=== PATIENT | female | born 1945 | race Caucasian/White ===

== ENCOUNTER → 2017-03-25 | Outpatient (CLI) | payer MEDICARE, SELFPAY ==
[2017-03-25 14:35] LABS: Absolute Lymphocyte Count 2.47 X10^3/ul (0.83-4.51); Absolute Neutrophil Count 4.2 X10^3/uL (2.0-7.7); Basophil# 0.05 X10^3/uL; Basophil% 0.7 % (0-1); Eosinophil# 0.27 X10^3/uL; Eosinophils% 3.5 % (0-5); Hematocrit 42.5 % (37-47); Hemoglobin 13.8 g/dl (12.0-15.0); Lymphocyte # 2.47 X10^3/ul (4.0); Lymphocyte % 32.2 % (19-41); Mean Corp Hgb Conc 32.5 g/gl (32-36); Mean Corpuscular Hgb 30.5 pg (27.0-32.0); Mean Platelet Vol. 10.3 fl (6.2-12.0); Monocyte# 0.65 X10^3/uL; Monocyte% 8.5 % (0-10); Neutrophil # 4.21 X10^3/uL (2.7-7.7); Neutrophil % 54.8 % (47-70); Platelet Count 413 K/mm3 (150-450); RBC Distribution Width CV 15.8 % (11.6-14.6); RBC Distribution Width SD 51.9 fl (35.1-43.9); Red Blood Count 4.52 M/mm3 (4.2-5.4); White Blood Count 7.7 K/mm3 (4.4-11.0)
[2017-03-25 14:39] LABS: POSITIVE COUNT NO; POSITIVE DIFFERENTIAL NO; POSITIVE MORPHOLOGY NO
[2017-03-25 14:54] LABS: AST(SGOT) 21 U/L (15-37); Alanine Aminotransfer ALT/SGPT 26 U/L (12-78); Albumin, Serum 3.9 g/dL (3.4-5.0); Alkaline Phosphatase 79 U/L (45-117); Anion Gap 7 (5-15); BUN 15 mg/dL (7-18); BUN/Creat Ratio 17.8 RATIO (10-20); Calcium,Total 9.3 mg/dL (8.5-10.1); Chloride 102 mmol/L (98-107); Creatinine, Serum 0.84 mg/dL (0.55-1.02); EST Glomerular Filtration Rate 71 mL/min (>60); Est Glom Filt Rate - Afr Amer 86 mL/min (>60); Globulin 4.1 g/dL (2.2-4.2); Glucose 89 mg/dL (70-110); Sodium Level 138 mmol/L (136-145)
== END | disposition home or self-care (01) ==
LOC: MTLAB 11:43
PROVIDERS: Family Provider Family Medicine; PCP Family Medicine; Visit Provider Internal Medicine Rheumatology
DX: R69 Illness, unspecified (principal)
CPT/HCPCS: 36415; 80053; 85025

== ENCOUNTER → 2017-06-18 14:15 | Outpatient (CLI) | payer MEDICARE, SELFPAY ==
[2017-06-18 15:36] LABS: Absolute Neutrophil Count 4.8 X10^3/uL (2.0-7.7); Basophil# 0.04 X10^3/uL; Basophil% 0.5 % (0-1); Eosinophils% 4.6 % (0-5); Hematocrit 41.9 % (37-47); Hemoglobin 13.5 g/dl (12.0-15.0); Lymphocyte % 34.7 % (19-41); Mean Corp Hgb Conc 32.2 g/gl (32-36); Mean Corpuscular Hgb 30.7 pg (27.0-32.0); Mean Corpuscular Volume 95.2 fL (81-99); Mean Platelet Vol. 10.1 fl (6.2-12.0); Monocyte# 0.41 X10^3/uL; Monocyte% 4.7 % (0-10); Neutrophil # 4.77 X10^3/uL (2.7-7.7); Neutrophil % 55.3 % (47-70); Platelet Count 354 K/mm3 (150-450); RBC Distribution Width CV 15.9 % (11.6-14.6); RBC Distribution Width SD 55.4 fl (35.1-43.9); White Blood Count 8.6 K/mm3 (4.4-11.0)
[2017-06-18 15:46] LABS: POSITIVE COUNT NO; POSITIVE DIFFERENTIAL NO; POSITIVE MORPHOLOGY NO
[2017-06-18 15:49] LABS: AST(SGOT) 22 U/L (15-37); Alanine Aminotransfer ALT/SGPT 31 U/L (13-56); Albumin, Serum 3.8 g/dL (3.2-5.0); Alkaline Phosphatase 83 U/L (45-117); Anion Gap 6 (5-15); BUN 17 mg/dL (7-18); BUN/Creat Ratio 21.4 RATIO (10-20); Calcium,Total 9.1 mg/dL (8.5-10.1); Chloride 105 mmol/L (98-107); EST Glomerular Filtration Rate 76 mL/min (>60); Est Glom Filt Rate - Afr Amer 92 mL/min (>60); Globulin 3.9 g/dL (2.2-4.2); Glucose 90 mg/dL (74-106); Potassium 3.7 mmol/L (3.5-5.1); Protein, Total 7.7 g/dL (6.4-8.2); Sodium Level 142 mmol/L (136-145)
== END ==
PROVIDERS: Family Provider Family Medicine; PCP Family Medicine; Visit Provider Internal Medicine Rheumatology
DX: L40.59 Other psoriatic arthropathy (principal); M17.0 Bilateral primary osteoarthritis of knee; M18.0 Bilateral primary osteoarthritis of first carpometacarpal joints; Z79.899 Other long term (current) drug therapy; Z87.11 Personal history of peptic ulcer disease
CPT/HCPCS: 36415; 80053; 85025

== ENCOUNTER → 2017-09-23 08:41 | Outpatient (CLI) | payer MEDICARE, SELFPAY ==
--- NOTE | 2017-09-23 08:41 | DT_ITS ---
This patient was seen during an EMR downtime September 16, 2017 - September 23, 2017. This patient may have a combination of paper and electronic documentation or all paper documentation. All documentation is viewable within the e-chart portion of [facility] for each patient visit.
[2017-09-23 10:35] LABS: Absolute Lymphocyte Count 2.37 X10^3/ul (0.83-4.51); Basophil# 0.04 X10^3/uL; Basophil% 0.6 % (0-1); Eosinophils% 2.8 % (0-5); Hemoglobin 13.5 g/dl (12.0-15.0); Lymphocyte # 2.37 X10^3/ul (4.0); Lymphocyte % 33.4 % (19-41); Mean Corp Hgb Conc 32.1 g/gl (32-36); Mean Corpuscular Hgb 30.5 pg (27.0-32.0); Mean Platelet Vol. 10.1 fl (6.2-12.0); Monocyte# 0.47 X10^3/uL; Monocyte% 6.6 % (0-10); Neutrophil % 56.5 % (47-70); POSITIVE COUNT NO; POSITIVE DIFFERENTIAL NO; POSITIVE MORPHOLOGY NO; Platelet Count 343 K/mm3 (150-450); RBC Distribution Width SD 50.2 fl (35.1-43.9); Red Blood Count 4.42 M/mm3 (4.2-5.4); White Blood Count 7.1 K/mm3 (4.4-11.0)
[2017-09-23 10:54] LABS: ALB/GLOB Ratio 0.9 RATIO (0.9-2.4); AST(SGOT) 20 U/L (15-37); Alanine Aminotransfer ALT/SGPT 27 U/L (13-56); Albumin, Serum 3.5 g/dL (3.2-5.0); Alkaline Phosphatase 79 U/L (45-117); Anion Gap 9 (5-15); BUN 13 mg/dL (7-18); BUN/Creat Ratio 14.8 RATIO (10-20); Calcium,Total 8.6 mg/dL (8.5-10.1); Chloride 107 mmol/L (98-107); Creatinine, Serum 0.88 mg/dL (0.55-1.02); EST Glomerular Filtration Rate 68 mL/min (>60); Est Glom Filt Rate - Afr Amer 82 mL/min (>60); Globulin 3.9 g/dL (2.2-4.2); Glucose 138 mg/dL (74-106); Potassium 3.9 mmol/L (3.5-5.1); Protein, Total 7.4 g/dL (6.4-8.2); Sodium Level 143 mmol/L (136-145)
== END ==
PROVIDERS: Family Provider Family Medicine; PCP Family Medicine; Visit Provider Internal Medicine Rheumatology
DX: L40.59 Other psoriatic arthropathy (principal); Z79.899 Other long term (current) drug therapy; L40.8 Other psoriasis; M17.0 Bilateral primary osteoarthritis of knee; M18.0 Bilateral primary osteoarthritis of first carpometacarpal joints; Z87.11 Personal history of peptic ulcer disease
CPT/HCPCS: 36415; 80053; 85025

== ENCOUNTER → 2017-12-10 10:37 | Outpatient (CLI) | payer MEDICARE, SELFPAY ==
[2017-12-10 12:11] LABS: Absolute Lymphocyte Count 2.63 X10^3/ul (0.83-4.51); Absolute Neutrophil Count 4.3 X10^3/uL (2.0-7.7); Basophil# 0.03 X10^3/uL; Basophil% 0.4 % (0-1); Eosinophil# 0.18 X10^3/uL; Eosinophils% 2.4 % (0-5); Hematocrit 42.4 % (37-47); Hemoglobin 13.4 g/dl (12.0-15.0); Lymphocyte # 2.63 X10^3/ul (4.0); Lymphocyte % 34.5 % (19-41); Mean Corp Hgb Conc 31.6 g/gl (32-36); Mean Corpuscular Volume 95.1 fL (81-99); Mean Platelet Vol. 10.1 fl (6.2-12.0); Monocyte# 0.52 X10^3/uL; Monocyte% 6.8 % (0-10); Neutrophil # 4.26 X10^3/uL (2.7-7.7); Neutrophil % 55.8 % (47-70); POSITIVE COUNT NO; POSITIVE DIFFERENTIAL NO; POSITIVE MORPHOLOGY NO; Platelet Count 340 K/mm3 (150-450); RBC Distribution Width CV 15.7 % (11.6-14.6); RBC Distribution Width SD 54.1 fl (35.1-43.9); Red Blood Count 4.46 M/mm3 (4.2-5.4); White Blood Count 7.6 K/mm3 (4.4-11.0)
[2017-12-10 12:27] LABS: ALB/GLOB Ratio 1.1 RATIO (0.9-2.4); AST(SGOT) 23 U/L (15-37); Alanine Aminotransfer ALT/SGPT 33 U/L (13-56); Albumin, Serum 4.1 g/dL (3.2-5.0); Alkaline Phosphatase 89 U/L (45-117); Anion Gap 9 (5-15); BUN 16 mg/dL (7-18); BUN/Creat Ratio 18.6 RATIO (10-20); Chloride 109 mmol/L (98-107); Creatinine, Serum 0.86 mg/dL (0.55-1.02); EST Glomerular Filtration Rate 69 mL/min (>60); Est Glom Filt Rate - Afr Amer 84 mL/min (>60); Globulin 3.7 g/dL (2.2-4.2); Glucose 86 mg/dL (74-106); Potassium 4.1 mmol/L (3.5-5.1); Protein, Total 7.8 g/dL (6.4-8.2); Sodium Level 141 mmol/L (136-145)
== END ==
PROVIDERS: Family Provider Family Medicine; PCP Family Medicine; Visit Provider Internal Medicine Rheumatology
DX: L40.59 Other psoriatic arthropathy (principal); M17.0 Bilateral primary osteoarthritis of knee; M18.0 Bilateral primary osteoarthritis of first carpometacarpal joints; Z87.11 Personal history of peptic ulcer disease; Z79.899 Other long term (current) drug therapy
CPT/HCPCS: 36415; 80053; 85025

== ENCOUNTER → 2017-12-12 09:00 | Outpatient (CLI) | payer MEDICARE, SELFPAY | PROVIDERS: Family Provider Family Medicine; PCP Family Medicine; Visit Provider Surgery | DX: N64.53 Retraction of nipple (principal); N63.20 Unspecified lump in the left breast, unspecified quadrant; R92.8 Other abnormal and inconclusive findings on diagnostic imaging of breast; Z80.3 Family history of malignant neoplasm of breast | CPT/HCPCS: 76642; 77062; 77063; 77066; G0279 ==

== ENCOUNTER → 2018-04-07 08:45 | Outpatient (CLI) | payer MEDICARE, SELFPAY ==
[2018-04-07 09:43] LABS: Vitamin D,25 Hydroxy 34.8 ng/mL (29.95-100.01)
== END ==
PROVIDERS: Family Provider Family Medicine; PCP Family Medicine; Referring Provider Podiatrist; Visit Provider Podiatrist
DX: E55.9 Vitamin D deficiency, unspecified (principal); S92.354A Nondisplaced fracture of fifth metatarsal bone, right foot, initial encounter for closed fracture; X58.XXXA Exposure to other specified factors, initial encounter; Y93.9 Activity, unspecified; Y92.9 Unspecified place or not applicable; Y99.9 Unspecified external cause status
CPT/HCPCS: 36415; 82306

== ENCOUNTER → 2018-05-01 10:59 | Outpatient (CLI) | payer MEDICARE, SELFPAY ==
[2018-05-01 12:20] LABS: Absolute Lymphocyte Count 2.28 X10^3/ul (0.83-4.51); Absolute Neutrophil Count 2.9 X10^3/uL (2.0-7.7); Basophil# 0.05 X10^3/uL; Basophil% 0.8 % (0-1); Eosinophil# 0.31 X10^3/uL; Eosinophils% 5.1 % (0-5); Hematocrit 44.4 % (37-47); Lymphocyte # 2.28 X10^3/ul (4.0); Lymphocyte % 37.4 % (19-41); Mean Corp Hgb Conc 31.5 g/gl (32-36); Mean Corpuscular Hgb 30.2 pg (27.0-32.0); Mean Corpuscular Volume 95.7 fL (81-99); Mean Platelet Vol. 10.5 fl (6.2-12.0); Monocyte# 0.51 X10^3/uL; Monocyte% 8.4 % (0-10); Neutrophil # 2.93 X10^3/uL (2.7-7.7); Platelet Count 320 K/mm3 (150-450); RBC Distribution Width CV 15.6 % (11.6-14.6); RBC Distribution Width SD 52.8 fl (35.1-43.9); Red Blood Count 4.64 M/mm3 (4.2-5.4); White Blood Count 6.1 K/mm3 (4.4-11.0)
[2018-05-01 12:25] LABS: POSITIVE COUNT NO; POSITIVE DIFFERENTIAL NO; POSITIVE MORPHOLOGY NO
[2018-05-01 12:53] LABS: ALB/GLOB Ratio 1.1 RATIO (0.9-2.4); AST(SGOT) 23 U/L (15-37); Alanine Aminotransfer ALT/SGPT 25 U/L (13-56); Albumin, Serum 3.8 g/dL (3.2-5.0); Alkaline Phosphatase 81 U/L (45-117); Anion Gap 6 (5-15); BUN 13 mg/dL (7-18); BUN/Creat Ratio 18.4 RATIO (10-20); Calcium,Total 8.6 mg/dL (8.5-10.1); Chloride 108 mmol/L (98-107); Creatinine, Serum 0.71 mg/dL (0.55-1.02); EST Glomerular Filtration Rate 87 mL/min (>60); Est Glom Filt Rate - Afr Amer 105 mL/min (>60); Globulin 3.5 g/dL (2.2-4.2); Glucose 79 mg/dL (74-106); Potassium 4.1 mmol/L (3.5-5.1); Protein, Total 7.3 g/dL (6.4-8.2); Sodium Level 139 mmol/L (136-145)
--- OUTSIDE RECORDS SUMMARY | 2018-07-06 02:08 | XMS RPT_ITS ---
:1945 Author Organization OHIP Support Name Relationship Address Phone SCOTT ZAYAS Unavailable [address] + [place] [address] R Unavailable Unavailable Unavailable KALLI, SHAQUILLE Unavailable [address] + [place] [address] SCOTT ZAYAS Unavailable [address] + [place] [address] R Unavailable Unavailable Unavailable KALLI, SHAQUILLE Unavailable [address] + [place] [address] SCOTT ZAYAS Unavailable [address] + [place] [address] R Unavailable Unavailable Unavailable KALLI, SHAQUILLE Unavailable [address] + [place] [address] SCOTT ZAYAS Unavailable [address] + [place] [address] R Unavailable Unavailable Unavailable KALLI, SHAQUILLE Unavailable [address] + [place] [address] SCOTT ZAYAS Unavailable [address] + [place] [address] R Unavailable Unavailable Unavailable KALLI, SHAQUILLE Unavailable [address] + [place] [address] SCOTT ZAYAS Unavailable [address] + [place] [address] R Unavailable Unavailable Unavailable KALLI, SHAQUILLE Unavailable [address] + [place] [address] SCOTT ZAYAS Unavailable [address] + [place] [address] R Unavailable Unavailable Unavailable KALLI, SHAQUILLE Unavailable [address] [phone] [place] [address] Care Team Providers Name Role Phone Amelia Sarabia Attending Unavailable Fascione, Amelia Referring Unavailable Cebul III, Joseph Primary Care Unavailable Vellanki, Eveline Attending Unavailable Vellanki, Eveline Referring Unavailable Cebul III, Joseph Primary Care Unavailable Vellanki, Eveline Attending Unavailable Cebul III, Joseph Primary Care Unavailable Cebul III, Joseph Referring Unavailable Vellanki, Eveline Attending Unavailable Vellanki, Eveline Referring Unavailable Cebul III, Joseph Primary Care Unavailable Vellanki, Eveline Attending Unavailable Vellanki, Eveline Referring Unavailable Cebul III, Joseph Primary Care Unavailable Cebul, Micha Attending Unavailable Cebul III, Joseph Referring Unavailable Cebul III, Joseph Primary Care Unavailable Cebul, Micha Attending Unavailable Cebul III, Joseph Primary Care Unavailable CEBUL III, JOSEPH A Attending Unavailable CEBUL III, JOSEPH A Referring Unavailable CEBUL III, JOSEPH A Referring Unavailable CEBUL III, JOSEPH A Attending Unavailable PAGE BRAGA (TERRAZZO ROLLER) Referring Unavailable PROBLEMS PROBLEMS DATE TYPE CONDITION / CODE ATTENDING STATUS SOURCE 04/07/2018 Unknown S92.354A - Fascione, Active [place] Nondisplaced fracture [facility] fifth [facility] bone, right foot, Repository initial encounter for closed fracture / S92.354A(ICD-10) 12/10/2017 Unknown N64.53 - Retraction Micha Thacker Active [facility] of nipple / Community N64.53(ICD-10) Hospital Repository 10/10/2017 Unknown L40.59 - Other Vellanki, Eveline 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 arthropathy Community / L40.59(ICD-10) Hospital Repository 06/18/2017 Unknown Z79.899 - Other long Vellanki, Eveline Active [facility] term (current) drug Community therapy / Hospital Z79.899(ICD-10) Repository 06/18/2017 Unknown L40.8 - Other Vellanki, Eveline Active [place] psoriasis / Community L40.8(ICD-10) Hospital Repository 06/18/2017 Unknown M17.0 - Bilateral Vellanki, Eveline Active [place] primary [facility] osteoarthritis of Hospital knee / M17.0(ICD-10) Repository 06/18/2017 Unknown M18.0 - Bilateral Vellanki, Eveline Active [facility] primary [facility] osteoarthritis of Hospital first carpometacarpal Repository joints / M18.0(ICD-10) 06/18/2017 Unknown Z87.11 - Personal Eveline Londono Active [facility] history of peptic Community ulcer disease / Hospital Z87.11(ICD-10) Repository 06/05/2017 Active Other specified NA Active [facility] Main density and [place] structure, Repository unspecified site / M85.80(ICD-10) 06/05/2017 Active Nondisplaced NA Active [facility] transverse fracture [facility] Main of left patella, [place] sequela / Repository S82.035S(ICD-10) 06/05/2017 Active Age-related NA Active [facility] osteoporosis with Clinic Main current pathological [place] fracture, unspecified Repository site, sequela / M80.00XS(ICD-10) 05/20/2017 Active Unknown / CEBUL III, Active [facility] UNK(Unknown) JOSEPH A Clinic Main [place] Repository PROCEDURES PROCEDURES No Procedure Records FoundRESULTS RESULTS CBC W/DIFF, AUTOMATED Collected: 05/01/2018 Status: F Source: [place] 11:05 AM [facility] REPOSITORY TYPE CODE TESTS RESULT OUT OF RANGE REFERENCE UNITS LAB L100.1000 4.4-11.0 K/mm3 Normal WBC 6.1 LAB L100.1200 4.2-5.4 M/mm3 Normal RBC 4.64 LAB L100.1300 12.0-15.0 g/dl Normal HGB 14.0 LAB L100.1400 37-47 % Normal HCT 44.4 LAB L100.1500 81-99 fL Normal MCV 95.7 LAB L100.1600 27.0-32.0 pg Normal MCH 30.2 LAB L100.1700 32-36 g/gl Low MCHC 31.5 LAB L100.1810 11.6-14.6 % High RDW CV 15.6 LAB L100.1820 35.1-43.9 fl High RDW SD 52.8 LAB L100.1900 150-450 K/mm3 Normal PLT 320 LAB L100.2000 6.2-12.0 fl Normal MPV 10.5 LAB L100.2100 47-70 % Normal NEUT% 48.0 LAB L100.2200 19-41 % Normal LY% 37.4 LAB L100.2300 0-10 % Normal MONO% 8.4 LAB L100.2400 0-5 % High EO% 5.1 LAB L100.2500 0-1 % Normal BASO% 0.8 LAB L100.2550 0.0-0.9 % Normal IM GRAN % 0.300 Result Comment: IG% - Immature Granulocytes (promyelocytes, myelocytes and metamyelocytes) > 1% indicates that a LEFT SHIFT is Present. LAB L100.2620 2.0-7.7 X10 3/uL Normal Absolute Neut 2.9 LAB L100.2720 0.83-4.51 X10 3/ul Normal Absolute Lymph 2.28 Performed By: #### L100.0100 #### [facility] [address] [place], [address] COMPREHENSIVE METABOLIC Collected: 05/01/2018 Status: F Source: [facility] 11:05 AM [facility] REPOSITORY TYPE CODE TESTS RESULT OUT OF RANGE REFERENCE UNITS LAB L501.0100 74-106 mg/dL Normal GLU 79 Result Comment: Please note revised GLUCOSE reference range effective 2017. LAB L501.1000 7-18 mg/dL Normal BUN 13 LAB L501.1100 0.55-1.02 mg/dL Normal CREAT,SERUM 0.71 Result Comment: The validity of the calculated GFR AND GFRAA in patients over 70 years has not been determined. Clinical correlation is essential. LAB L501.1110 >60 mL/min Normal EST GFR 87 Result Comment: Non- GFR Calc LAB L501.1115 >60 mL/min Normal EST GFR - AA 105 Result Comment: GFR Calc LAB L501.1300 10-20 RATIO Normal BUN/CRE 18.4 LAB L501.1500 6.4-8.2 g/dL T Normal PROT 7.3 LAB L501.1800 3.2-5.0 g/dL Normal ALB 3.8 LAB L501.1950 2.2-4.2 g/dL Normal GLOB 3.5 LAB L501.2000 0.9-2.4 RATIO Normal A/G 1.1 LAB L501.2200 8.5-10.1 mg/dL CA Normal 8.6 LAB L501.4100 15-37 U/L Normal AST 23 LAB L501.4305 45-117 U/L Normal ALK P 81 LAB L501.4405 13-56 U/L Normal ALT 25 LAB L501.4600 0.20-1.00 mg/dL T Normal BILI 0.40 LAB L501.5300 136-145 mmol/L NA Normal 139 LAB L501.5600 3.5-5.1 mmol/L K Normal 4.1 LAB L501.5900 98-107 mmol/L High CL 108 LAB L501.6100 21.0-32.0 mmol/L Normal CO2 25.0 LAB L501.6200 5-15 Normal GAP 6 Performed By: #### L500.4050 #### [facility] [address] [place], [address] PROGRESS Observed: 04/23/2018 Status: COMPLETED Source: [place] 3:24 PM [facility] REPOSITORY HNO ID: [id number] Author: Lisa Ackerman (Elisha) Howard Service: (none) Author Type: Nurse Practitioner Type: Progress Notes Filed: 04/23/2018 3:35 PM Note Text: Subjective HPI Patient presents with: diarrhea, stomach cramps,x 2-3 days Nasal congestion x 1 month rash on stomach: x 1 month-rash started last night on one side and woke her up, states has had rash before used otc cream and it improved. Also with complaints of low back pain after tripping over a chair 2 weeks ago. Denies any otc treatment for symptoms. Review of Systems Constitutional: Negative for chills, fever and malaise/fatigue. HENT: Positive for congestion and sinus pain. Negative for ear pain and sore throat. Eyes: Negative for discharge and redness. Respiratory: Negative for cough. Gastrointestinal: Positive for abdominal pain (cramps intermittently), diarrhea (resolving) and nausea. Negative for vomiting. Musculoskeletal: Positive for back pain. Skin: Positive for rash. Neurological: Negative for headaches. All other systems reviewed and are negative. 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 Omeprazole 40 mg capsule TAKE 1 CAPSULE DAILY ketoconazole (NIZORAL) 2 % shampoo Apply 1 application to affected area once daily as needed. CALCIUM CARBONATE/VITAMIN D2 (CALCIUM + VITAMIN D ORAL) Take by mouth twice daily. gabapentin (NEURONTIN) 100 mg capsule Take 100 mg by mouth three times daily. fluorometholone (FML LIQUID FILM) 0.1 % ophthalmic suspension Use 1 Drop in both eyes twice daily. B Complex Vitamins capsule Take 1 capsule by mouth once daily. Methotrexate Sodium 2.5 mg tablet 8 tablets once a week. folic acid 1 mg tablet Take two tablets by mouth once daily HYDROcodone-acetaminophen (NORCO) 5-325 mg per tablet 1 tablet by mouth per day as needed for severe pain. Use sparingly.Earliest Fill Date: 04/21/18 nystatin (NYSTOP) powder Apply 1 application to affected area twice daily for 14 days. triamcinolone acetonide (KENALOG) 0.1 % cream Apply 1 application to affected area three times daily for 10 days. Apply sparingly to area for rash/itching. doxycycline monohydrate (MONODOX) 100 mg capsule Take 1 capsule by mouth twice daily for 10 days. cyclobenzaprine (FLEXERIL) 10 mg tablet Take 1 tablet by mouth three times daily as needed for up to 7 days. FAMILY HISTORY Problem Relation Age of Onset - Stroke Mother pneumonia - other (accident [Other]) Father - Breast Cancer Sister 1/2 sister - Coronary Artery Disease Brother Social History Substance Use Topics - Smoking status: Never Smoker - Smokeless tobacco: Never Used - Alcohol use No Objective Physical Exam Constitutional: She is well-developed, well-nourished, and in no distress. HENT: Head: Normocephalic. Right Ear: Tympanic membrane, external ear and ear canal normal. Left Ear: Tympanic membrane, external ear and ear canal normal. Nose: Mucosal edema present. Right sinus exhibits maxillary sinus tenderness. Right sinus exhibits no frontal sinus tenderness. Left sinus exhibits maxillary sinus tenderness. Left sinus exhibits no frontal sinus tenderness. Mouth/Throat: Oropharynx is clear and moist. Eyes: Conjunctivae are normal. Neck: Normal range of motion. Cardiovascular: Normal rate, regular rhythm and normal heart sounds. Pulmonary/Chest: Effort normal and breath sounds normal. No respiratory distress. She has no wheezes. Abdominal: Soft. Bowel sounds are normal. She exhibits no distension. There is no tenderness. There is no rebound. Musculoskeletal: Back: straight and symmetric, no pinpoint spinal tenderness, left lumbar paraspinal tenderness, no CVA tenderness, Full ROM, Low extrem. reflexes are 2+ and symmetric,andmotor strength and sensory exam are normal, neg SLR Lymphadenopathy: She has no cervical adenopathy. Skin: Skin is warm and dry. Rash noted. Rash is macular (erythematous, mild blanching erythematous rash in abd fold with satelite papules). Nursing note and vitals reviewed. ASSESSMENT/PLAN: 1. Viral gastroenteritis - ICD9: 008.8, ICD10: A08.4 (primary diagnosis) -reviewed viral etiology -supportive care, rest, electrolyte replacement, analgesics PRN -reviewed GUT rest and [place] diet after episode of vomiting -Probiotic otc recommended -F/u with pcp in 3-5 days or sooner if symptoms are not improving or worsening 2. Acute sinusitis, recurrence not specified, unspecified location - ICD9: 461.9, ICD10: J01.90 - Will begin treatment with Doxycline - The patient should also be given OTC decongestants prn for the first 5-7 days of treatment. - Supportive care with plenty of fluids, rest, and analgesia prn. - Follow up in 3-5 days if symptoms persist or worsen. 3. Lumbar strain, initial encounter - ICD9: 847.2, ICD10: S39.012A Lumbosacral sprain - Ice for localized tenderness - Muscle relaxant- see orders - Follow up in 5-7 days or sooner if symptoms persist or worsen 4. Skin yeast infection - ICD9: 112.3, ICD10: B37.2 -Nystop Prescription instructions reviewed with patient as applicable. Patient advised if symptoms do not improve or if symptoms worsen sooner, to contact their primary care physician. Potential red flag symptoms discussed with the patient. Reviewed appropriate action plan to take if red flag symptoms occur. Patient agreeable to treatment plan. Lisa Staley APRN.CNP CNOV Observed: 04/19/2018 Status: COMPLETED Source: [place] 9:30 AM [facility] REPOSITORY Office Visit (WSTR) BAILEE ZAYAS ([id number]) 1945 F Date Time Provider Department 04/19/18 9:30 AM LISA STALEY (TERRAZZO ROLLER) [facility] During your visit today, we recorded the following information about you: Temperature Pulse Respiration Blood pressure 98.3 degrees 66/minute 16/minute 130/86 Weight 83.8 kg Lisa Staley APRN.CNP 04/23/2018 3:35 PM Signed Subjective HPI Patient presents with: diarrhea, stomach cramps,x 2-3 days Nasal congestion x 1 month rash on stomach: x 1 month-rash started last night on one side and woke her up, states has had rash before used otc cream and it improved. Also with complaints of low back pain after tripping over a chair 2 weeks ago. Denies any otc treatment for symptoms. Review of Systems Constitutional: Negative for chills, fever and malaise/fatigue. HENT: Positive for congestion and sinus pain. Negative for ear pain and sore throat. Eyes: Negative for discharge and redness. Respiratory: Negative for cough. Gastrointestinal: Positive for abdominal pain (cramps intermittently), diarrhea (resolving) and nausea. Negative for vomiting. Musculoskeletal: Positive for back pain. Skin: Positive for rash. Neurological: Negative for headaches. All other systems reviewed and are negative. 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 Omeprazole 40 mg capsule TAKE 1 CAPSULE DAILY ketoconazole (NIZORAL) 2 % shampoo Apply 1 application to affected area once daily as needed. CALCIUM CARBONATE/VITAMIN D2 (CALCIUM + VITAMIN D ORAL) Take by mouth twice daily. gabapentin (NEURONTIN) 100 mg capsule Take 100 mg by mouth three times daily. fluorometholone (FML LIQUID FILM) 0.1 % ophthalmic suspension Use 1 Drop in both eyes twice daily. B Complex Vitamins capsule Take 1 capsule by mouth once daily. Methotrexate Sodium 2.5 mg tablet 8 tablets once a week. folic acid 1 mg tablet Take two tablets by mouth once daily HYDROcodone-acetaminophen (NORCO) 5-325 mg per tablet 1 tablet by mouth per day as needed for severe pain. Use sparingly.Earliest Fill Date: 04/21/18 nystatin (NYSTOP) powder Apply 1 application to affected area twice daily for 14 days. triamcinolone acetonide (KENALOG) 0.1 % cream Apply 1 application to affected area three times daily for 10 days. Apply sparingly to area for rash/itching. doxycycline monohydrate (MONODOX) 100 mg capsule Take 1 capsule by mouth twice daily for 10 days. cyclobenzaprine (FLEXERIL) 10 mg tablet Take 1 tablet by mouth three times daily as needed for up to 7 days. FAMILY HISTORY Problem Relation Age of Onset - Stroke Mother pneumonia - other (accident [Other]) Father - Breast Cancer Sister 1/2 sister - Coronary Artery Disease Brother Social History Substance Use Topics - Smoking status: Never Smoker - Smokeless tobacco: Never Used - Alcohol use No Objective Physical Exam Constitutional: She is well-developed, well-nourished, and in no distress. HENT: Head: Normocephalic. Right Ear: Tympanic membrane, external ear and ear canal normal. Left Ear: Tympanic membrane, external ear and ear canal normal. Nose: Mucosal edema present. Right sinus exhibits maxillary sinus tenderness. Right sinus exhibits no frontal sinus tenderness. Left sinus exhibits maxillary sinus tenderness. Left sinus exhibits no frontal sinus tenderness. Mouth/Throat: Oropharynx is clear and moist. Eyes: Conjunctivae are normal. Neck: Normal range of motion. Cardiovascular: Normal rate, regular rhythm and normal heart sounds. Pulmonary/Chest: Effort normal and breath sounds normal. No respiratory distress. She has no wheezes. Abdominal: Soft. Bowel sounds are normal. She exhibits no distension. There is no tenderness. There is no rebound. Musculoskeletal: Back: straight and symmetric, no pinpoint spinal tenderness, left lumbar paraspinal tenderness, no CVA tenderness, Full ROM, Low extrem. reflexes are 2+ and symmetric,andmotor strength and sensory exam are normal, neg SLR Lymphadenopathy: She has no cervical adenopathy. Skin: Skin is warm and dry. Rash noted. Rash is macular (erythematous, mild blanching erythematous rash in abd fold with satelite papules). Nursing note and vitals reviewed. ASSESSMENT/PLAN: 1. Viral gastroenteritis - ICD9: 008.8, ICD10: A08.4 (primary diagnosis) -reviewed viral etiology -supportive care, rest, electrolyte replacement, analgesics PRN -reviewed GUT rest and [place] diet after episode of vomiting -Probiotic otc recommended -F/u with pcp in 3-5 days or sooner if symptoms are not improving or worsening 2. Acute sinusitis, recurrence not specified, unspecified location - ICD9: 461.9, ICD10: J01.90 - Will begin treatment with Doxycline - The patient should also be given OTC decongestants prn for the first 5-7 days of treatment. - Supportive care with plenty of fluids, rest, and analgesia prn. - Follow up in 3-5 days if symptoms persist or worsen. 3. Lumbar strain, initial encounter - ICD9: 847.2, ICD10: S39.012A Lumbosacral sprain - Ice for localized tenderness - Muscle relaxant- see orders - Follow up in 5-7 days or sooner if symptoms persist or worsen 4. Skin yeast infection - ICD9: 112.3, ICD10: B37.2 -Nystop Prescription instructions reviewed with patient as applicable. Patient advised if symptoms do not improve or if symptoms worsen sooner, to contact their primary care physician. Potential red flag symptoms discussed with the patient. Reviewed appropriate action plan to take if red flag symptoms occur. Patient agreeable to treatment plan. Lisa Staley, KATY.SALES AND SERVICE REPRESENTATIVE Referring Provider: SELF [[id number]] Allergies As of Date: 04/19/2018 Noted Allergy Reaction CELEBREX (CELECOXIB) 03/22/2010 14 - Other: See Comments Comments: Caused ulcer ENBREL (ETANERCEPT) 01/29/2012 14 - Other: See Comments Comments: causes boils Date Reviewed: 04/19/2018 Reviewed by: Lisa Ackerman (Furnace Charging Machine Operator) Howard - Fully Assessed Reason for Visit: diarrhea, stomach cramps, congestion and rash on stomach [Other] Cmt: x 1 month- -rash start- ed last night on one side and woke her up Primary Visit Diagnosis:Viral gastroenteritis [A08.4] Other Visit Diagnoses:Acute sinusitis, recurrence not specified, unspecified location [J01.90] Lumbar strain, initial encounter [S39.012A] Skin yeast infection [B37.2] Order(s):nystatin (NYSTOP) powderApply 1 application to affected area twice daily for 14 days.Disp: 1 BottleRfl: 0 triamcinolone acetonide (KENALOG) 0.1 % creamApply 1 application to affected area three times daily for 10 days. Apply sparingly to area for rash/itching.Disp: 60 gRfl: 0 doxycycline monohydrate (MONODOX) 100 mg capsuleTake 1 capsule by mouth twice daily for 10 days.Disp: 20 capsuleRfl: 0 cyclobenzaprine (FLEXERIL) 10 mg tabletTake 1 tablet by mouth three times daily as needed for up to 7 days.Disp: 21 tabletRfl: 0 Prescriptions as of 04/19/2018 Sig: CHOLECALCIFEROL (VITAMIN D3) * Take 1 capsule by mouth once * OMEPRAZOLE 40 MG CAPSULE,OMAR* TAKE 1 CAPSULE DAILY KETOCONAZOLE 2 % SHAMPOO Apply 1 application to affect* CALCIUM + VITAMIN D ORAL Take by mouth twice daily. GABAPENTIN 100 MG CAPSULE Take 100 mg by mouth three ti* FLUOROMETHOLONE 0.1 % EYE TOSHIA* Use 1 Drop in both eyes twice* VITAMIN B COMPLEX CAPSULE Take 1 capsule by mouth once * METHOTREXATE SODIUM 2.5 MG TA* 8 tablets once a week. FOLIC ACID 1 MG TABLET Take two tablets by mouth onc* NYSTATIN 100,000 UNIT/GRAM TO* Apply 1 application to affect* TRIAMCINOLONE ACETONIDE 0.1 %* Apply 1 application to affect* DOXYCYCLINE MONOHYDRATE 100 M* Take 1 capsule by mouth twice* CYCLOBENZAPRINE 10 MG TABLET Take 1 tablet by mouth three * X HYDROCODONE 5 MG-ACETAMINOPHE* 1 tablet by mouth per day as * Problem List As Of Date 04/19/2018 Noted Resolved CELLULITIS CHEST WALL [L03.319, L02.219] INVALID FOR*06/30/2016 Osteoarthritis of knee [M17.10] INVALID FOR* Osteoporosis [M81.0] INVALID FOR* Psoriasis [L40.9] INVALID FOR* Hyperlipidemia LDL goal < 100 [E78.5] INVALID FOR*01/14/2012 Vitamin D deficiency [E55.9] INVALID FOR* Hyperparathyroidism (HCC) [E21.3] INVALID FOR*06/30/2016 Hypercalciuria [R82.994] INVALID FOR* Abnormal mammogram [R92.8] INVALID FOR* Arthritis with psoriasis [L40.50] INVALID FOR* Pain in joint, lower leg [M25.569] INVALID FOR*06/30/2016 Disorders of bursae and tendons in shoulder reg*INVALID FOR*06/30/2016 Pes cavus [Q66.7] INVALID FOR* Spondylosis of lumbar region without myelopathy*INVALID FOR* Left breast mass [N63.20] INVALID FOR* terminal operations supervisor prescription opiate use [Z79.891] INVALID FOR* Prescriptions ordered this encounter Disp Refills Start End NYSTATIN 100,000 UNIT/GRAM TOPICAL P* 1 [place]* 0 04/19/2018 05/03/2018 Route: TOPICAL Sig: Apply 1 application to affected area twice daily for 14 days. TRIAMCINOLONE ACETONIDE 0.1 % TOPICA* 60 g 0 04/19/2018 04/29/2018 Route: TOPICAL Sig: Apply 1 application to affected area three times daily for 10 days. Apply sparingly to area for rash/itching. AMOXICILLIN 875 MG-POTASSIUM CLAVULA* 20 t* 0 04/19/2018 04/19/2018 Route: ORAL Sig: Take 1 tablet by mouth twice daily for 10 days. Disc: Side Effects DOXYCYCLINE MONOHYDRATE 100 MG CAPSU* 20 c* 0 04/19/2018 04/29/2018 Cmt: Dc previous Augmentin Route: ORAL Sig: Take 1 capsule by mouth twice daily for 10 days. CYCLOBENZAPRINE 10 MG TABLET 21 t* 0 04/19/2018 04/26/2018 Route: ORAL Sig: Take 1 tablet by mouth three times daily as needed for up to 7 days. Medications Discontinued During This Encounter amoxicillin-clavulanic acid (AUGMENT* 20 t* 0 04/19/2018 04/19/2018 Route: ORAL Sig: Take 1 tablet by mouth twice daily for 10 days. Disc: Side Effects Disposition: Return if symptoms worsen or fail to improve. Follow-up and Disposition History Recorded Encounter Status:Closed by LISA STALEY on 04/23/18 VITAMIN D,25 HYDROXY Collected: 04/07/2018 Status: F Source: [place] 8:53 AM [facility] REPOSITORY TYPE CODE TESTS RESULT OUT OF RANGE REFERENCE UNITS LAB L506.1000 29.95-100.01 ng/mL Normal Vitamin D 34.8 25-OH Result Comment: Vitamin D 25(OH) Status Range Deficiency <20 ng/mL (50nmol/L) Insuffciency 20 - 30 ng/mL (50 - 75 nmol/L) Sufficiency 30 - 100 ng/mL (75 - 250 nmol/L) Toxicity >100 ng/mL (>250 nmol/L) Performed By: #### L506.1000 #### [facility] [address] [place], [address] CNNURSE Observed: 03/20/2018 Status: COMPLETED Source: [place] 10:45 AM [facility] REPOSITORY Nurse Visit (FAMPWS) BAILEE ZAYAS ([id number]) 1945 F Date Time Provider Department 03/20/18 10:45 AM [place] NURSE KEYUR During your visit today, we recorded the following information about you: Josh Rose CMA, [place] 03/20/2018 10:28 AM Signed 73 year old female here for INACTIVATED INFLUENZA VACCINE. Season Patient is identified by name and date of : Yes [] CONTRAINDICATIONS color enhanced section Age less than 6 months? No Allergy to eggs, chicken, chicken feathers, or chicken dander? No Allergy to thimerosal (a preservative) or formaldehyde, gelatin? No History of severe reaction to any vaccine component or a previous dose of influenza vaccination? No History of Guillain-B[place] Syndrome within 6 weeks after a previous influenza vaccine? No Patient is not moderately or severely ill? No Current temperature greater or equal to 100.4F? No History of Bone Marrow Transplant prior 6 months or solid organ transplant in the past 3 months ? No History of fainting after a prior injection or medical procedure? No- ? If patient has fainted in the past, the CDC recommends sitting or lying down for 15 minutes after the vaccination. [] VERIFICATION color enhanced section Was the answer Yes for any of the above contraindications? No contraindications present. Acceptable to proceed with vaccine. Patient/guardian agrees the above answers are true to the best of their knowledge? Yes Flu vaccine information sheet given? Yes See immunization activity in [facility] for details of immunizations adminstered today. Patient age: [age] year old For The 6721-9451 Flu Season 6-35 months old: Fluzone 0.25 ml - IM (Preservative Free) 3 years of age: Fluzone 0.5 ml - IM (Preservative Free) 3 years and older: Fluzone 0.5 ml- IM-(with Preservatives) 65+ years old: 2-49 years old Fluzone High-Dose 0.5 ml - IM (Preservative Free) FLUMIST- intranasal REMEMBER: If patient is less than 9 years of age and this is the first vaccine of Influenza to be received in any flu season, they should receive a second dose in one months time. Referring Provider: SELF [200] Allergies As of Date: 03/20/2018 Noted Allergy Reaction CELEBREX (CELECOXIB) 03/22/2010 14 - Other: See Comments Comments: Caused ulcer ENBREL (ETANERCEPT) 01/29/2012 14 - Other: See Comments Comments: causes boils Date Reviewed: 03/20/2018 Reviewed by: Josh ([facility]) PAULA Rose - Fully Assessed Reason for Visit: Imm/Inj [58] Cmt: Flu Vaccine Primary Visit Diagnosis:Need for vaccination [Z23] Order(s):INFLUENZA SEASONAL HIGH DOSE AGE 65+ [[id number]] Order #: [id number] Prescriptions as of 03/20/2018 Sig: HYDROCODONE 5 MG-ACETAMINOPHE* 1 tablet by mouth per day as * OMEPRAZOLE 40 MG CAPSULE,OMAR* TAKE 1 CAPSULE DAILY KETOCONAZOLE 2 % SHAMPOO Apply 1 application to affect* CALCIUM + VITAMIN D ORAL Take by mouth twice daily. GABAPENTIN 100 MG CAPSULE Take 100 mg by mouth three ti* FLUOROMETHOLONE 0.1 % EYE TOSHIA* Use 1 Drop in both eyes twice* VITAMIN B COMPLEX CAPSULE Take 1 capsule by mouth once * METHOTREXATE SODIUM 2.5 MG TA* 8 tablets once a week. 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] INVALID FOR* Pain in joint, lower leg [M25.569] INVALID FOR*06/30/2016 Disorders of bursae and tendons in shoulder reg*INVALID FOR*06/30/2016 Pes cavus [Q66.7] INVALID FOR* Spondylosis of lumbar region without myelopathy*INVALID FOR* Left breast mass [N63.20] INVALID FOR* shelter prescription opiate use [Z79.891] INVALID FOR* Encounter Status:Closed by JOSH ROSE CMA on 03/20/18 PROGRESS Observed: 03/20/2018 Status: COMPLETED Source: [place] 10:26 AM [facility] REPOSITORY HNO ID: [id number] Author: Josh Clemente) PAULA Rose Service: (none) Author Type: [employer] Type: Progress Notes Filed: 03/20/2018 10:28 AM Note Text: 73 year old female here for INACTIVATED INFLUENZA VACCINE. 3373-4348 Season Patient is identified by name and date of : Yes [] CONTRAINDICATIONS color enhanced section Age less than 6 months? No Allergy to eggs, chicken, chicken feathers, or chicken dander? No Allergy to thimerosal (a preservative) or formaldehyde, gelatin? No History of severe reaction to any vaccine component or a previous dose of influenza vaccination? No History of Guillain-Belle Four[place] Syndrome within 6 weeks after a previous influenza vaccine? No Patient is not moderately or severely ill? No Current temperature greater or equal to 100.4F? No History of Bone Marrow Transplant prior 6 months or solid organ transplant in the past 3 months ? No History of fainting after a prior injection or medical procedure? No- ? If patient has fainted in the past, the CDC recommends sitting or lying down for 15 minutes after the vaccination. [] VERIFICATION color enhanced section Was the answer Yes for any of the above contraindications? No contraindications present. Acceptable to proceed with vaccine. Patient/guardian agrees the above answers are true to the best of their knowledge? Yes Flu vaccine information sheet given? Yes See immunization activity in [facility] for details of immunizations adminstered today. Patient age: [age] year old For The 1486-7724 Flu Season 6-35 months old: Fluzone 0.25 ml - IM (Preservative Free) 3 years of age: Fluzone 0.5 ml - IM (Preservative Free) 3 years and older: Fluzone 0.5 ml- IM-(with Preservatives) 65+ years old: 2-49 years old Fluzone High-Dose 0.5 ml - IM (Preservative Free) FLUMIST- intranasal REMEMBER: If patient is less than 9 years of age and this is the first vaccine of Influenza to be received in any flu season, they should receive a second dose in one months time. TOXICOLOGY SCREEN,UR Collected: 02/12/2018 Status: F Source: [place] 3:19 PM [facility] REPOSITORY TYPE CODE TESTS RESULT OUT OF REFERENCE UNITS RANGE LAB UPCP2 Negative Negative Phencyclidin e, Urine Result Comment: Cutoff threshold at 25 ng/mL. LAB UBENZ2 Negative Benzodiazepines, Ur Negative Result Comment: Cutoff threshold at 200 ng/mL. LAB UCOC2 Negative Cocaine, Negative Urine Result Comment: Cutoff threshold at 300 ng/mL. LAB UAMPH2 Negative Amphetamines, Urine Negative Result Comment: Cutoff threshold at 1000 ng/mL. LAB UTHC2 Negative Cannabinoids, Urine Negative Result Comment: Cutoff threshold at 50 ng/mL. LAB UOPI2 Negative Opiates, Negative Urine Result Comment: Cutoff threshold at 300 ng/mL. LAB UBARB2 Negative Barbiturates, Urine Negative Result Comment: Cutoff threshold at 200 ng/mL. LAB UETOH <11 mg/dL <11 Ethanol, Urine LAB UOXYC Negative Oxycodone, Negative Urine Result Comment: Cutoff threshold at 100 ng/mL. Comment: Immunoassay screen only. Cross reactivity with other substances can occur with immunoassay screening. Detection of any drug(s) in this urine toxicology panel is presumptive only. These tests are for med ica purposes only and should not be used for compliance monitoring, legal, or forensic use. Samples should be within normal physiological conditions (e.g. pH). This assay does not include adulteration/specimen validity testing. In clinical settings, confirmatory testing is at the practitioner's discretion [1]. If clinically indicated, confirmation by high specificity, quantitative methodology, which includes adulteration/spec imen validity testing, may be requested on the same specimen through Client Services ([phone]) if contacted within 48 hours of initial testing. [1]Substance Abuse and Mental Health Services Administration (2012). Clinical Drug Testing in Primary Care Technical Assistance Publication Series 32. Department of Health and Human Services, [place], p.10. These tests were developed and their performance characteristics determined by [facility]'s [facility] [place] ([facility] They have not been cleared or a pproved by the FDA. [facility] is regulated under CLIA as qualified to perform high complexity testing. These tests are used for clinical purposes. They should not be regarded as investigational or for research. Performed By: #### UTOX2 #### [facility] [address], [place] [address] TOXICOLOGY SCREEN,UR Collected: 01/10/2018 Status: F Source: [place] 1:30 PM [facility] REPOSITORY TYPE CODE TESTS RESULT OUT OF REFERENCE UNITS RANGE LAB UPCP2 Negative Negative Phencyclidin e, Urine Result Comment: Cutoff threshold at 25 ng/mL. LAB UBENZ2 Negative Benzodiazepines, Ur Negative Result Comment: Cutoff threshold at 200 ng/mL. LAB UCOC2 Negative Cocaine, Negative Urine Result Comment: Cutoff threshold at 300 ng/mL. LAB UAMPH2 Negative Amphetamines, Urine Negative Result Comment: Cutoff threshold at 1000 ng/mL. LAB UTHC2 Negative Cannabinoids, Urine Negative Result Comment: Cutoff threshold at 50 ng/mL. LAB UOPI2 Negative Opiates, Negative Urine Result Comment: Cutoff threshold at 300 ng/mL. LAB UBARB2 Negative Barbiturates, Urine Negative Result Comment: Cutoff threshold at 200 ng/mL. LAB UETOH <11 mg/dL <11 Ethanol, Urine LAB UOXYC Negative Oxycodone, Negative Urine Result Comment: Cutoff threshold at 100 ng/mL. Comment: Immunoassay screen only. Cross reactivity with other substances can occur with immunoassay screening. Detection of any drug(s) in this urine toxicology panel is presumptive only. These tests are for med ical purposes only and should not be used for compliance monitoring, legal, or forensic use. Samples should be within normal physiological conditions (e.g. pH). This assay does not include adulteration/specimen validity testing. In clinical settings, confirmatory testing is at the practitioner's discretion [1]. If clinically indicated, confirmation by high specificity, quantitative methodology, which includes adulteration/spec imen validity testing, may be requested on the same specimen through Client Services ([phone]) if contacted within 48 hours of initial testing. [1]Substance Abuse and Mental Health Services Administration (2012). Clinical Drug Testing in Primary Care Technical Assistance Publication Series 32. Department of Health and Human Services, [place], p.10. These tests were developed and their performance characteristics determined by [facility] [place] ([facility]). They have not been cleared or a pproved by the FDA. [facility] is regulated under CLIA as qualified to perform high complexity testing. These tests are used for clinical purposes. They should not be regarded as investigational or for research. Performed By: #### UTOX2 #### [facility] [address] [place], [place] [address] QUANT PAIN PANEL, Collected: 01/10/2018 Status: F Source: [facility] 1:30 PM [facility] REPOSITORY TYPE CODE TESTS RESULT OUT OF REFERENCE UNITS RANGE LAB UQCANN <16 ng/mL <16 Cannabinoid, Urine Result Comment: Tetrahydrocannabinol carboxylic acid (THCA) is a metabolite of qcpxp-0-dgdhrhhlgzhixcxcifyu which is the main active component of marijuana. LAB UQBNZL <24 ng/mL Benzoylecognine, Ur <24 Result Comment: Benzoylecognine is a metabolite of cocaine. LAB UQACMR <5 ng/mL 6-Acetylmorphine, Ur <5 Result Comment: 6-CHRISSY (6-monoacetylmorphine, also known as 6-acetylmorphine) is a unique metabolite of heroin. Presence of 6-CHRISSY indicates use of heroin. 6-CHRISSY is further metabolized to morphine and absence of 6-CHRISSY does not rule out the use of heroin. LAB UQAMPH <5 ng/mL Amphetamine, Urine <5 LAB UQMAMP <8 ng/mL Methamphetamine, Ur <8 LAB UQBUPR <20 ng/mL Buprenorphine, Ur <20 LAB UQNBUP <20 ng/mL Norbuprenorphine, Ur <20 Result Comment: Norbuprenorphine is the primary active metabolite of buprenorphine. LAB UQMTHD <16 ng/mL Methadone, Urine <16 LAB UQEDDP <6 ng/mL EDDP, Urine <6 Result Comment: EDDP is a metabolite of methadone. LAB UQTRAM <25 ng/mL Tramadol, Urine <25 LAB UQDTRM <20 ng/mL Desmethyltramadol <20 ,Ur Result Comment: Desmethyltramadol is a metabolite of tramadol. LAB UQFNTL <6 ng/mL Fentanyl, Urine <6 LAB UQNFTL <6 ng/mL Norfentanyl, Urine <6 Result Comment: Norfentanyl is a metabolite of fentanyl. LAB UQCODE <11 ng/mL Codeine, Urine <11 LAB UQMORP <10 ng/mL Morphine, Urine <10 Result Comment: Morphine is a metabolite of codeine and heroin. LAB UQDCDN <5 ng/mL Dihydrocodeine, Ur <5 LAB UQHCOD <8 ng/mL Hydrocodone, Urine <8 Result Comment: Hydrocodone is a metabolite of dihydrocodeine. LAB UQOXYC <10 ng/mL Oxycodone, Urine <10 LAB UQHMOR <5 ng/mL Hydromorphone, Ur <5 Result Comment: Hydromorphone is a metabolite of hydrocodone. LAB UQOXYM <5 ng/mL Oxymorphone, Urine <5 Result Comment: Oxymorphone is a metabolite of oxycodone. LAB UQCREA 42.2-237.9 mg/dL Creatinine, 219.8 Urine LAB UQPH 4.5-8.0 pH, Urine 5.7 LAB UQSPGR 1.002-1.030 Specific 1.019 [place],Ur LAB UQOXID <200 mg/L Oxidants, <38 Urine LAB SVNI01 <51 mg/L <50 NITRITES,URINE LAB SVCH01 <50 mg/L <10 CHROMATE,URINE LAB SVSQ01 Specimen QUALITY,URINE quality results within acceptable limits. LAB UQNOTE Note This test is for Medical use only. Result Comment: This test was developed and its performance characteristics determined by [facility]'s [facility] [place] ([facility]). It has not been cleared or approved by the FDA. [facility] is regulated under CLIA as qualified to perform high-complexity testing. This test is used for clinical purposes. It should not be regarded as investigational or for research. Performed By: #### UQNTPP #### [place] [address] CNCO Observed: 01/06/2018 Status: COMPLETED Source: [place] 12:00 AM [facility] REPOSITORY Letter Text [facility], [address] [place] [address] Controlled Substance Agreement GOAL The purpose of this Agreement is to prevent misunderstandings about certain medicines you will be taking for pain management. It will help both you and your doctor to comply with laws regarding controlled pharmaceuticals. I understand that this Agreement is essential to the trust and confidence necessary in a doctor/patient relationship and that my doctor undertakes to treat me based on this Agreement. AGREEMENT I, Ms. Bailee Zayas, understand that if I break this Agreement, my doctor will stop prescribing these pain-control medicines. In this case, my doctor will taper off the medicine over a period of several days, as necessary, to avoid withdrawal symptoms. A drug-dependence treatment program may be recommended. In certain cases, you may be terminated as a patient. 1. I will communicate fully with my doctor about the character and intensity of my pain, its effect on my daily life, and how well the medicine is helping to relieve the pain. 2. I will not use any illegal controlled substances, including marijuana, cocaine, etc. Random urine and/or serum toxicology screens may be requested; this testing may be unannounced and occur at any time. I agree that I will submit to a blood or urine test if requested by my doctor to determine my compliance with my program of pain control medicine. 3. I will not share, sell or trade my medication with anyone. 4. I will not attempt to obtain any controlled substance from any other doctor, other than a covering physician. 5. I will safeguard my pain medicine from loss or theft. Lost or stolen medicines may not be replaced. 6. I agree that refills of my prescriptions for pain medicine will be made only at the time of an office visit or during regular office hours. No refills will be available on evenings or weekends. 7. I authorize the doctor and my pharmacy to cooperate fully with any city, state or federal law enforcement agency, including this state's Board of Pharmacy, in the investigation of any possible misuse, sale, or other diversion of my medication. I authorize my doctor to provide a copy of this Agreement to my pharmacy. I agree to waive any applicable privilege or right of privacy or confidentiality with respect to these authorizations. Pharmacy: Location: Phone number: 8. I agree that I will use my medicine at a rate no greater than the prescribed rate and that use of my medicine at a greater rate may result in my being without medication for a period of time. 9. If legal authorities have questions concerning treatment, for example, if a patient were obtaining medications at several pharmacies, all confidentiality is waived and the authorities may be given full access to the [facility] Records of narcotic administration. 10. I agree to follow these guidelines and they have been fully explained to me. All of my questions and concerns regarding treatment have been answered. A copy of this document has been given to me. Patient: Date: January 06, 2018 Bailee Zayas [id number] Physician: Date: January 06, 2018 Joseph Thacker III, M.D. BREAST LIMITED Observed: 12/12/2017 Status: F Source: [place] 9:04 AM [facility] REPOSITORY [facility] Imaging Services [address] [place] [address] Breast Limited Unilateral MR#: [id number] Acct: [id number] Name: BAILEE ZAYAS Rep #: [id number] : 1945 F 72 From: Tushar Fleming MD PCP: Joseph Thacker III, MD Status: REG CLI Study: Breast Limited Unilateral Date of Exam: 12/12/17 Exam# [id number] Ordering Dr: Micha Thacker MD STUDY: ULTRASOUND BREAST - LEFT REASON FOR EXAM: Female, 72 years old. Palpable lump retroareolar region of the left breast. Prior left excisional breast biopsy. TECHNIQUE: Axial and longitudinal images of the LEFT breast were performed with a high resolution ultrasound transducer. COMPARISON: Comparison is made with prior mammogram done earlier in the day. FINDINGS: LEFT Breast: There is a 5 mm x 3 mm x 3 mm cyst in the retroareolar region. This also evidence of a scarring at that site in keeping with prior biopsy. US/Breast Limited Unilateral IMPRESSION: 5 mm x 3 mm x 3 mm cyst in the retroareolar region of the breast. Adjacent scar from prior biopsy. ASSESSMENT CATEGORY: BIRADS Category 2: Benign. A letter regarding these results will be sent to the patient by the facility within 30 days. Electronically Signed: Tushar Fleming MD at 10:57 EDT Tel [phone], Service support , CC: oJseph Thacker III, MD; Micha Thacker MD [employer] Driver: Signed DIAG MAMM W/CAD, Observed: 12/12/2017 Status: F Source: [place] 9:04 AM [facility] REPOSITORY [facility] Services [address] [place] [address] DIAG MAMM W/CAD, BILAT MR#: [id number] Acct: [id number] Name: BAILEE ZAYAS Rep #: [id number] : 1945 F 72 From: Tushar Fleming MD PCP: Joseph Thacker III, MD Status: REG CLI Study: DIAG MAMM W/CAD, BILAT Date of Exam: 12/12/17 Exam# [id number] Ordering Dr: Micha Thacker MD MAMMOGRAPHY - BILATERAL DIAGNOSTIC REASON FOR EXAM: Female, 72 years old. 4 month history of left breast lump. Prior left excisional breast biopsy. PERTINENT HISTORY: Sister with breast cancer. TECHNIQUE: Digital bilateral breast sofia (3D mammographic acquisition) in the CC and MLO projections. 2-D mediolateral oblique (MLO) and craniocaudad (CC) views of both breasts were obtained. CAD: Full Field Digital Mammography with Computer Added Detection was performed. COMPARISON: Comparison is made with prior axial examination dated December 10, 2016 and February 06, 2017. FINDINGS: Breast Composition: The breasts are almost entirely fatty. There are no dominant masses or suspicious calcifications. The previously seen calcifications in the retroareolar region of the left breast abdomen resected as compared to prior study. There is evidence of a left periareolar skin thickening and postoperative changes. Correlation with ultrasound is recommended. Benign-appearing bilateral axillary lymph nodes. No other significant abnormalities are identified. BI/DIAG MAMM W/CAD, BILAT IMPRESSION: Status post resection of the microcalcifications in the retroareolar region of the left breast with resultant overlying skin thickening. Correlation with ultrasound is recommended. ASSESSMENT CATEGORY: BIRADS Category 0: Incomplete. Need additional imaging evaluation. A letter regarding these results will be sent to the patient by the facility within 30 days. Approximately 10% of breast cancers are not detected by mammography. A normal mammogram should not delay biopsy of a clinically suspicious abnormality. Electronically Signed: Tushar Fleming MD at 11:02 EDT Tel [phone], Service support , CC: Joseph Thacker III, MD; Micha Thacker MD [employer] Driver: Signed SURGERY VISIT REPORT Observed: 12/10/2017 Status: F Source: [place] 2:00 PM [facility] REPOSITORY [facility] [address] [place] [address]. [address] [place] [address] OFFICE VISIT Date of Service: 12/10/17 MR#: [id number] Acct: [id number] Name: BAILEE ZAYAS Rep #: [id number] : 1945 Provider: Micha Thacker MD Age/Sex: 72/F Location: [facility] Status: Signed Intake Intake Visit Reasons: breast check Gravedigger Required: No Is patient in pain?: No Allergies celecoxib [From Celebrex] Allergy (Verified 12/10/17 13:03) Other etanercept [From Enbrel] Allergy (Verified 12/10/17 13:03) Other Medications Calcium Carbonate/Vitamin D3 [Calcium 600-Vit D3 800 Tab] 1 ea PO DAILY 05/09/16 [History Confirmed 12/10/17] Fluorometholone 1 drp EACH EYE DAILY 05/09/16 [History Confirmed 12/10/17] Folic Acid 2 mg PO DAILY 05/09/16 [History Confirmed 12/10/17] Hydrocodone/Acetaminophen [Reddell 5-325 Tablet] 1 ea PO Q4H PRN 05/09/16 [History Confirmed 12/10/17] Methotrexate 20 mg PO TH 05/09/16 [History Confirmed 12/10/17] Omeprazole [Prilosec] 40 mg PO DAILY 05/09/16 [History Confirmed 12/10/17] Vitamin B Complex 1 ea PO DAILY 05/09/16 [History Confirmed 12/10/17] Gabapentin [Neurontin] 100 mg PO TIDCM 01/31/17 [History Confirmed 12/10/17] Tramadol HCl [Ultram] 50 mg PO PRN PRN 01/31/17 [History Confirmed 12/10/17] Hydrocodone Bitart/Apap 5-325 [Reddell 5MG-325MG] 1 tab PO Q6H PRN PRN #8 tab 02/06/17 [Rx Confirmed 12/10/17] PFSH Medical History Non-cardiac chest pain (Acute) Chest pain (Acute) Osteoarthritis (Chronic) GERD (gastroesophageal reflux disease) (Acute) Status post total knee replacement, right (Chronic) Restless legs syndrome (RLS) (Chronic) Surgical History Hx of breast biopsy (Acute) S/P cataract extraction (Acute) H/O: hysterectomy (Chronic) Status post total knee replacement, left (Chronic) History of cholecystectomy (Chronic) Family History Father Heart disease Sister Breast cancer Diabetes Social History Smoking Status: Never smoker second hand exposure: No alcohol intake: never substance use type: does not use caffeine: Yes what type of physical activity do you participate in: none frequency: does not exercise seatbelt use: always HPI HPI HPI: BAILEE ZAYAS, is a 72 F who presents to the office today for surgical consultation regarding a palpable left breast mass. 72-year-old female. A1. Menarche age 13. First child was born when she was 25. She did breast-feed 1 child. She had a previous excisional left breast biopsy. Records demonstrate that February 06, 2017 I performed stereotactic wire localization with a retroareolar excisional biopsy. The patient had a needle core biopsy demonstrating an intraductal papilloma. There was some retraction of her left nipple. So we went ahead and excised this area. Final pathology shows intraductal papilloma. Intraductal hyperplasia with focal atypia. Fibrocystic change and stenosis. Microcalcifications. Evidence of previous biopsy. The patient now can palpate a very small nodule at the 9 o'clock position just adjacent to the nipple of the left breast. She is not on any estrogen replacement. A half sister had breast cancer. There was some planning to obtain mammograms which then temporarily delayed. Exam Chest Other: Right breast: No focal mass. No nipple discharge. No axillary or clavicular adenopathy Left breast: Well-healed curvilinear incision outer periareolar left breast. Slight nipple retraction medially. Immediately adjacent to the nipple at the 9 o'clock position there is a 5 mm superficial palpable rubbery small BB sized nodule. No nipple discharge. No current tenderness. No axillary clavicular adenopathy Assessment AND Plan Problems 1. Breast mass, left N63.20 Plan On clinical examination this is a very small superficial retroareolar nodule medial to the left nipple. 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 I have a low level of suspicion regarding this area. I will request mammograms and ultrasound. The patient wonders whether we could expedite that for her. The only way we could do that is to convert her films to the [facility]. She requests that we do that for her. I appreciate the opportunity of continue to assist with her surgical care Cc: KARYN Mojica M.D., F.A.C.S. Orders Orders: Coding Level of Care Code Off vis,est,level 2 Diagnoses Breast mass, left N63.20 12/10/17 1400 <Electronically signed by Micha Thacker MD> Date Micha Thacker MD Cosigner Signature: Date (if applicable) CC: Joseph Thacker III, MD CBC W/DIFF, AUTOMATED Collected: 12/10/2017 Status: F Source: [place] 10:40 AM [facility] REPOSITORY TYPE CODE TESTS RESULT OUT OF RANGE REFERENCE UNITS LAB L100.1000 4.4-11.0 K/mm3 Normal WBC 7.6 LAB L100.1200 4.2-5.4 M/mm3 Normal RBC 4.46 LAB L100.1300 12.0-15.0 g/dl Normal HGB 13.4 LAB L100.1400 37-47 % Normal HCT 42.4 LAB L100.1500 81-99 fL Normal MCV 95.1 LAB L100.1600 27.0-32.0 pg Normal MCH 30.0 LAB L100.1700 32-36 g/gl Low MCHC 31.6 LAB L100.1810 11.6-14.6 % High RDW CV 15.7 LAB L100.1820 35.1-43.9 fl High RDW SD 54.1 LAB L100.1900 150-450 K/mm3 Normal PLT 340 LAB L100.2000 6.2-12.0 fl Normal MPV 10.1 LAB L100.2100 47-70 % Normal NEUT% 55.8 LAB L100.2200 19-41 % Normal LY% 34.5 LAB L100.2300 0-10 % Normal MONO% 6.8 LAB L100.2400 0-5 % Normal EO% 2.4 LAB L100.2500 0-1 % Normal BASO% 0.4 LAB L100.2550 0.0-0.9 % Normal IM GRAN % 0.100 Result Comment: IG% - Immature Granulocytes (promyelocytes, myelocytes and metamyelocytes) > 1% indicates that a LEFT SHIFT is Present. LAB L100.2620 2.0-7.7 X10 3/uL Normal Absolute Neut 4.3 LAB L100.2720 0.83-4.51 X10 3/ul Normal Absolute Lymph 2.63 Performed By: #### L100.0100 #### [facility] Laboratory [address] [place], [address] COMPREHENSIVE METABOLIC Collected: 12/10/2017 Status: F Source: [facility] 10:40 AM [facility] REPOSITORY TYPE CODE TESTS RESULT OUT OF RANGE REFERENCE UNITS LAB L501.0100 74-106 mg/dL Normal GLU 86 Result Comment: Please note revised GLUCOSE reference range effective 2017. LAB L501.1000 7-18 mg/dL Normal BUN 16 LAB L501.1100 0.55-1.02 mg/dL Normal CREAT,SERUM 0.86 Result Comment: The validity of the calculated GFR AND GFRAA in patients over 70 years has not been determined. Clinical correlation is essential. LAB L501.1110 >60 mL/min Normal EST GFR 69 Result Comment: Non- GFR Calc LAB L501.1115 >60 mL/min Normal EST GFR - AA 84 Result Comment: GFR Calc LAB L501.1300 10-20 RATIO Normal BUN/CRE 18.6 LAB L501.1500 6.4-8.2 g/dL T Normal PROT 7.8 LAB L501.1800 3.2-5.0 g/dL Normal ALB 4.1 LAB L501.1950 2.2-4.2 g/dL Normal GLOB 3.7 LAB L501.2000 0.9-2.4 RATIO Normal A/G 1.1 LAB L501.2200 8.5-10.1 mg/dL CA Normal 9.0 LAB L501.4100 15-37 U/L Normal AST 23 LAB L501.4305 45-117 U/L Normal ALK P 89 LAB L501.4405 13-56 U/L Normal ALT 33 LAB L501.4600 0.20-1.00 mg/dL T Normal BILI 0.40 LAB L501.5300 136-145 mmol/L NA Normal 141 LAB L501.5600 3.5-5.1 mmol/L K Normal 4.1 LAB L501.5900 98-107 mmol/L High CL 109 LAB L501.6100 21.0-32.0 mmol/L Normal CO2 23.0 LAB L501.6200 5-15 Normal GAP 9 Performed By: #### L500.4050 #### [facility] [address] [place], [address] PROGRESS Observed: 10/25/2017 Status: COMPLETED Source: [place] 4:34 PM [facility] REPOSITORY O ID: [id number] Author: Joseph Thacker III Service: (none) Author Type: Physician Type: Progress Notes Filed: 10/25/2017 6:07 PM Note Text: SUBJECTIVE: This is a 72 year old female that is here today for 1. Evaluation of tender lump L breast noted over past several mos. Patient has a history of intraductal papilloma left areolar area between the 12:00 and 2:00 position on 01/17/17. Notes from Dr. Kallie Thacker reviewed. It is been subsequent to that finding that she then noted the sore lump that is present now. No history of breast cancer. 2. Chronic arthritis pain in lumbar spine and also in hands. She has known psoriasis of the scalp and is been given the diagnosis of psoriatic arthritis by the lap checker, Dr. Londono. Patient has been taking an average of one dose of hydrocodone 5 mg daily which seems to help her with climbing bleachers or prolonged walking. Dr Londono has offered Otezla, pt is thinking about it. 3. She does indicate that she can walk over 300 feet without stopping and does not require a cane. We did discuss that she would not presently qualify for a handicap parking placard. --- Results [facility] (Order [id number]) Patient Info Patient Name Sex Bailee Younger ([id number]) Female 1945 12/26/2016 ?2:56 PM - Interface, Results In Impression IMPRESSION: SUSPICIOUS OF MALIGNANCY - FOLLOW-UP RECOMMENDED The 1 cm x 1 cm x 0.8 cm lobulated mass in the left breast resembles fibrocystic change and is at a low suspicion for malignancy. ?An ultrasound guided biopsy is recommended. ?The patient will be referred to a breast surgeon for biopsy per standard protocol. Ga montenegro/steven:12/26/2016 14:54:59 Central Sterile Supply Technician: Laura CALIXTO)(Tian), [facility] letter sent: Abnormal ? OVERALL STUDY BIRADS: 4a Suspicious abnormality - low suspicion for malignancy [employer]ated [employer] Truck Driver: Steven Transcribe Date/Time: Dec 26 2016 ?1:31P Dictated by : GA WITT MD This examination was interpreted and the report reviewed and electronically signed by: GA WITT MD on Dec 26 2016 ?2:54PM ?EST PAST MEDICAL HISTORY Diagnosis Date - Abnormal mammogram 04/05/2010 - Arthritis with psoriasis (HCC) 01/14/2012 - Cellulitis and abscess of trunk 02/23-26/08 Hospitalized with MRSA left chest wall - Hypercalciuria 03/30/2010 - Hyperlipidemia LDL goal < 100 03/22/2010 - Hyperparathyroidism (HCC) 03/30/2010 - Osteoarthritis of knee 03/22/2010 - Osteoporosis 03/22/2010 - Psoriasis 03/22/2010 - 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 Use sparingly.Earliest Fill Date: 10/01/17 CALCIUM CARBONATE/VITAMIN D2 (CALCIUM + VITAMIN D ORAL) Take by mouth twice daily. gabapentin (NEURONTIN) 100 mg capsule Take 100 mg by mouth three times daily. fluorometholone (FML LIQUID FILM) 0.1 % ophthalmic suspension Use 1 Drop in both eyes twice daily. Omeprazole 40 mg capsule TAKE 1 CAPSULE DAILY B Complex Vitamins capsule Take 1 capsule by mouth once daily. Methotrexate Sodium 2.5 mg tablet 8 tablets once a week. folic acid 1 mg tablet Take two tablets by mouth once daily ketoconazole 2 % shampoo Apply 1 application to affected area once daily as needed. No current facility-administered medications on file prior to visit. FAMILY HISTORY Problem Relation Age of Onset - Stroke Mother pneumonia - accident [Other] [OTHER] Father - Breast Cancer Sister 1/2 sister - Coronary Artery Disease Brother Social History Substance Use Topics - Smoking status: Never Smoker - Smokeless tobacco: Never Used - Alcohol use No . BP 107/76 Pulse 81 Resp 18 Wt 91.6 kg (202 lb) BMI 34.67 kg/m? . OBJECTIVE: APPEARANCE Well appearing, alert, in no acute distress, well-hydrated, well nourished. BREAST FEMALE : pea-sized tender nodule 7 o'clock position L areola near nipple. No nipple discharge. No other masses L breast. No left supraclavicular or left axillary lymphadenopathy. Right breast is entirely normal without masses or asymmetries. No dimpling or right supraclavicular or right axillary lymphadenopathy EXTREMITIES swelling of the second and third MCP joints of both hands though she has good flexion and extension of the fingers. ASSESSMENT: Left breast mass?possible intraductal papilloma Psoriasis with arthritis Long-term prescription of opiate medication?stable use PLAN: refer to Dr Kallie Thacker for evaluation and management of L breast mass mammograms L breast continue methotrexate and consider otezla for psoriasis with arthritis use hydrocodone 5mg up to once/day as needed for severe pain Joseph [facility]acker III MD [facility] and [facility]. All prescriptions have been APPROPRIATELY filled. No suspicious activity was identified. 10/25/2017 by KARYN Guerin MD, III MD CNOV Observed: 10/25/2017 Status: COMPLETED Source: [place] 4:00 PM [facility] REPOSITORY [facility] BAILEE ZAYAS ([id number]) 1945 F Date Time Provider Department 10/25/17 4:00 PM JOSEPH THACKER III During your visit today, we recorded the following information about you: Pulse Respiration Blood pressure Weight 81/minute 18/minute 107/76 91.6 kg Joseph Thacker III MD 10/25/2017 6:07 PM Signed SUBJECTIVE: This is a 72 year old female that is here today for 1. Evaluation of tender lump L breast noted over past several mos. Patient has a history of intraductal papilloma left areolar area between the 12:00 and 2:00 position on 01/17/17. Notes from Dr. Kallie Thacker reviewed. It is been subsequent to that finding that she then noted the sore lump that is present now. No history of breast cancer. 2. Chronic arthritis pain in lumbar spine and also in hands. She has known psoriasis of the scalp and is been given the diagnosis of psoriatic arthritis by the lap checker, Dr. Londono. Patient has been taking an average of one dose of hydrocodone 5 mg daily which seems to help her with climbing bleachers or prolonged walking. Dr Londono has offered Regina, pt is thinking about it. 3. She does indicate that she can walk over 300 feet without stopping and does not require a cane. We did discuss that she would not presently qualify for a handicap parking placard. Results [facility] (Order [id number]) Patient Info Patient Name Sex Bailee Younger ([id number]) Female 1945 12/26/2016 ?2:56 PM - Interface, Results In Impression IMPRESSION: SUSPICIOUS OF MALIGNANCY - FOLLOW-UP RECOMMENDED The 1 cm x 1 cm x 0.8 cm lobulated mass in the left breast resembles fibrocystic change and is at a low suspicion for malignancy. ?An ultrasound guided biopsy is recommended. ?The patient will be referred to a breast surgeon for biopsy per standard protocol. aG montenegro/steven:12/26/2016 14:54:59 Central Sterile Supply Technician: Laura BLAND(R)(M), [facility] letter sent: Abnormal ? OVERALL STUDY BIRADS: 4a Suspicious abnormality - low suspicion for malignancy Refrigerated National Truck Driver: Steven Transcribe Date/Time: Dec 26 2016 ?1:31P Dictated by : AG WITT MD This examination was interpreted and the report reviewed and electronically signed by: GA WITT MD on Dec 26 2016 ?2:54PM ?EST PAST MEDICAL HISTORY Diagnosis Date - Abnormal mammogram 04/05/2010 - Arthritis with psoriasis (HCC) 01/14/2012 - Cellulitis and abscess of trunk 02/23-26/08 Hospitalized with MRSA left chest wall - Hypercalciuria 03/30/2010 - Hyperlipidemia LDL goal < 100 03/22/2010 - Hyperparathyroidism (HCC) 03/30/2010 - Osteoarthritis of knee 03/22/2010 - Osteoporosis 03/22/2010 - Psoriasis 03/22/2010 - 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 Use sparingly.Earliest Fill Date: 10/01/17 CALCIUM CARBONATE/VITAMIN D2 (CALCIUM + VITAMIN D ORAL) Take by mouth twice daily. gabapentin (NEURONTIN) 100 mg capsule Take 100 mg by mouth three times daily. fluorometholone (FML LIQUID FILM) 0.1 % ophthalmic suspension Use 1 Drop in both eyes twice daily. Omeprazole 40 mg capsule TAKE 1 CAPSULE DAILY B Complex Vitamins capsule Take 1 capsule by mouth once daily. Methotrexate Sodium 2.5 mg tablet 8 tablets once a week. folic acid 1 mg tablet Take two tablets by mouth once daily ketoconazole 2 % shampoo Apply 1 application to affected area once daily as needed. No current facility-administered medications on file prior to visit. FAMILY HISTORY Problem Relation Age of Onset - Stroke Mother pneumonia - accident [Other] [OTHER] Father - Breast Cancer Sister 1/2 sister - Coronary Artery Disease Brother Social History Substance Use Topics - Smoking status: Never Smoker - Smokeless tobacco: Never Used - Alcohol use No . BP 107/76 Pulse 81 Resp 18 Wt 91.6 kg (202 lb) BMI 34.67 kg/m? . OBJECTIVE: APPEARANCE Well appearing, alert, in no acute distress, well- hydrated, well nourished. BREAST FEMALE : pea-sized tender nodule 7 o'clock position L areola near nipple. No nipple discharge. No other masses L breast. No left supraclavicular or left axillary lymphadenopathy. Right breast is entirely normal without masses or asymmetries. No dimpling or right supraclavicular or right axillary lymphadenopathy EXTREMITIES swelling of the second and third MCP joints of both hands though she has good flexion and extension of the fingers. ASSESSMENT: Left breast mass?possible intraductal papilloma Psoriasis with arthritis Long-term prescription of opiate medication?stable use PLAN: refer to Dr Kallie Thacker for evaluation and management of L breast mass mammograms L breast continue methotrexate and consider otezla for psoriasis with arthritis use hydrocodone 5mg up to once/day as needed for severe pain Joseph Thacker III MD .[place] website checked and validated. All prescriptions have been APPROPRIATELY filled. No suspicious activity was identified. 10/25/2017 by KARYN Guerin MD, III MD Referring Provider: PAGE BRAGA (TERRAZZO ROLLER) [[id number]] Allergies As of Date: 10/25/2017 Noted Allergy Reaction CELEBREX (CELECOXIB) 03/22/2010 14 - Other: See Comments Comments: Caused ulcer ENBREL (ETANERCEPT) 01/29/2012 14 - Other: See Comments Comments: causes boils Date Reviewed: 10/25/2017 Reviewed by: Josh ([facility]) PAULA Rose - Fully Assessed Reason for Visit: Lump on left breast [Other] Cmt: noticed 3 months ago, has gotten somewhat bigger, sometimes hurts Primary Visit Diagnosis:Left breast mass [N63.20] Other Visit Diagnoses:Osteoarthritis of right knee, unspecified osteoarthritis type [M17.11] Arthritis with psoriasis (HCC) [L40.50] Order(s):ketoconazole (NIZORAL) 2 % shampooApply 1 application to affected area once daily as needed.Disp: 120 mLRfl: 3 HYDROcodone-acetaminophen (NORCO) 5-325 mg per tablet1 tablet by mouth per day as needed for severe pain. Use sparingly. Earliest Fill Date: 10/25/17Disp: 30 tabletRfl: 0 CHRISSY DIAG W SOFIA LT [[id number]] Order #: [id number] FUTURE CONSULT TO GENERAL SURGERY [9011] Order #: [id number]: 1 Prescriptions as of 10/25/2017 Sig: KETOCONAZOLE 2 % SHAMPOO Apply 1 application to affect* HYDROCODONE 5 MG-ACETAMINOPHE* 1 tablet by mouth per day as * CALCIUM + VITAMIN D ORAL Take by mouth twice daily. GABAPENTIN 100 MG CAPSULE Take 100 mg by mouth three ti* FLUOROMETHOLONE 0.1 % EYE TOSHIA* Use 1 Drop in both eyes twice* OMEPRAZOLE 40 MG CAPSULE,OMAR* TAKE 1 CAPSULE DAILY VITAMIN B COMPLEX CAPSULE Take 1 capsule by mouth once * METHOTREXATE SODIUM 2.5 MG TA* 8 tablets once a week. FOLIC ACID 1 MG TABLET Take two tablets by mouth onc* Problem List As Of Date 10/25/2017 Noted Resolved CELLULITIS CHEST WALL [L03.319, L02.219] INVALID FOR*06/30/2016 Osteoarthritis of knee [M17.10] INVALID FOR* Osteoporosis [M81.0] INVALID FOR* Psoriasis [L40.9] INVALID FOR* Hyperlipidemia LDL goal < 100 [E78.5] INVALID FOR*01/14/2012 Vitamin D deficiency [E55.9] INVALID FOR* Hyperparathyroidism (HCC) [E21.3] INVALID FOR*06/30/2016 Hypercalciuria [E83.50] INVALID FOR* Abnormal mammogram [R92.8] INVALID FOR* Arthritis with psoriasis [L40.50] INVALID FOR* Pain in joint, lower leg [M25.569] INVALID FOR*06/30/2016 Disorders of bursae and tendons in shoulder reg*INVALID FOR*06/30/2016 Pes cavus [Q66.7] INVALID FOR* Spondylosis of lumbar region without myelopathy*INVALID FOR* Left breast mass [N63.20] INVALID FOR* Prescriptions ordered this encounter Disp Refills Start End KETOCONAZOLE 2 % SHAMPOO 120 * 3 10/25/2017 Route: TOPICAL Sig: Apply 1 application to affected area once daily as needed. HYDROCODONE 5 MG-ACETAMINOPHEN 325 M* 30 t* 0 10/25/2017 11/25/2017 Class: Print RX Si tablet by mouth per day as needed for severe pain. Use sparingly. Earliest Fill Date: 10/25/17 Medications Discontinued During This Encounter ketoconazole 2 % shampoo 120 * 3 01/14/2012 10/25/2017 Route: TOPICAL Sig: Apply 1 application to affected area once daily as needed. Disc: Reason for discontinue is not on file. HYDROcodone-acetaminophen (NORCO) 5-* 30 t* 0 10/01/2017 10/25/2017 Class: Print RX Si tablet by mouth per day as needed for severe pain. Use sparingly. Earliest Fill Date: 10/01/17 Disc: Reason for discontinue is not on file. Encounter Status:Closed by JOSEPH THACKER III, MD on 10/25/17 DOWNTIME REPORT Observed: 10/03/2017 Status: F Source: [place] 1:59 PM [facility] Medical Records Department [address] [place] [address] Downtime Report MR#: [id number] Acct: [id number] Name: ZAYASBAILEE Rep #: [id number] : 1945 72 From: Kel Sow PCP: Joseph Thacker III, MD Status: REG CLI This patient was seen during an EMR downtime September 16, 2017 - September 23, 2017. This patient may have a combination of paper and electronic documentation or all paper documentation. All documentation is viewable within the e-chart portion of [employer] for each patient visit. CBC W/DIFF, AUTOMATED Collected: 09/23/2017 Status: F Source: [place] 8:45 AM [facility] REPOSITORY TYPE CODE TESTS RESULT OUT OF RANGE REFERENCE UNITS LAB L100.1000 4.4-11.0 K/mm3 Normal WBC 7.1 LAB L100.1200 4.2-5.4 M/mm3 Normal RBC 4.42 LAB L100.1300 12.0-15.0 g/dl Normal HGB 13.5 LAB L100.1400 37-47 % Normal HCT 42.0 LAB L100.1500 81-99 fL Normal MCV 95.0 LAB L100.1600 27.0-32.0 pg Normal MCH 30.5 LAB L100.1700 32-36 g/gl Normal MCHC 32.1 LAB L100.1810 11.6-14.6 % High RDW CV 15.0 LAB L100.1820 35.1-43.9 fl High RDW SD 50.2 LAB L100.1900 150-450 K/mm3 Normal PLT 343 LAB L100.2000 6.2-12.0 fl Normal MPV 10.1 LAB L100.2100 47-70 % Normal NEUT% 56.5 LAB L100.2200 19-41 % Normal LY% 33.4 LAB L100.2300 0-10 % Normal MONO% 6.6 LAB L100.2400 0-5 % Normal EO% 2.8 LAB L100.2500 0-1 % Normal BASO% 0.6 LAB L100.2550 0.0-0.9 % Normal IM GRAN % 0.100 Result Comment: IG% - Immature Granulocytes (promyelocytes, myelocytes and metamyelocytes) > 1% indicates that a LEFT SHIFT is Present. LAB L100.2620 2.0-7.7 X10 3/uL Normal Absolute Neut 4.0 LAB L100.2720 0.83-4.51 X10 3/ul Normal Absolute Lymph 2.37 Performed By: #### L100.0100 #### [facility] [address] [place], [place], [address] COMPREHENSIVE METABOLIC Collected: 09/23/2017 Status: F Source: [place] [facility] 8:45 AM [facility] REPOSITORY TYPE CODE TESTS RESULT OUT OF RANGE REFERENCE UNITS LAB L501.0100 74-106 mg/dL High GLU 138 Result Comment: Fasting Glucose result greater than or equal to 126 mg/dL suggests DIABETES MELLITUS per A.D.A. criteria. Please note revised GLUCOSE reference range effective 2017. LAB L501.1000 7-18 mg/dL Normal BUN 13 LAB L501.1100 0.55-1.02 mg/dL Normal CREAT,SERUM 0.88 Result Comment: The validity of the calculated GFR AND GFRAA in patients over 70 years has not been determined. Clinical correlation is essential. LAB L501.1110 >60 mL/min Normal EST GFR 68 Result Comment: Non- GFR Calc LAB L501.1115 >60 mL/min Normal EST GFR - AA 82 Result Comment: GFR Calc LAB L501.1300 10-20 RATIO Normal BUN/CRE 14.8 LAB L501.1500 6.4-8.2 g/dL T Normal PROT 7.4 LAB L501.1800 3.2-5.0 g/dL Normal ALB 3.5 LAB L501.1950 2.2-4.2 g/dL Normal GLOB 3.9 LAB L501.2000 0.9-2.4 RATIO Normal A/G 0.9 LAB L501.2200 8.5-10.1 mg/dL CA Normal 8.6 LAB L501.4100 15-37 U/L Normal AST 20 LAB L501.4305 45-117 U/L Normal ALK P 79 LAB L501.4405 13-56 U/L Normal ALT 27 LAB L501.4600 0.20-1.00 mg/dL T Normal BILI 0.30 LAB L501.5300 136-145 mmol/L NA Normal 143 LAB L501.5600 3.5-5.1 mmol/L K Normal 3.9 LAB L501.5900 98-107 mmol/L CL Normal 107 LAB L501.6100 21.0-32.0 mmol/L Normal CO2 27.0 LAB L501.6200 5-15 Normal GAP 9 Performed By: #### L500.4050 #### [facility] Laboratory [address] [place], [place], [address] CBC W/DIFF, AUTOMATED Collected: 06/18/2017 Status: F Source: [place] 2:25 PM [facility] REPOSITORY TYPE CODE TESTS RESULT OUT OF RANGE REFERENCE UNITS LAB L100.1000 4.4-11.0 K/mm3 Normal WBC 8.6 LAB L100.1200 4.2-5.4 M/mm3 Normal RBC 4.40 LAB L100.1300 12.0-15.0 g/dl Normal HGB 13.5 LAB L100.1400 37-47 % Normal HCT 41.9 LAB L100.1500 81-99 fL Normal MCV 95.2 LAB L100.1600 27.0-32.0 pg Normal MCH 30.7 LAB L100.1700 32-36 g/gl Normal MCHC 32.2 LAB L100.1810 11.6-14.6 % High RDW CV 15.9 LAB L100.1820 35.1-43.9 fl High RDW SD 55.4 LAB L100.1900 150-450 K/mm3 Normal PLT 354 LAB L100.2000 6.2-12.0 fl Normal MPV 10.1 LAB L100.2100 47-70 % Normal NEUT% 55.3 LAB L100.2200 19-41 % Normal LY% 34.7 LAB L100.2300 0-10 % Normal MONO% 4.7 LAB L100.2400 0-5 % Normal EO% 4.6 LAB L100.2500 0-1 % Normal BASO% 0.5 LAB L100.2550 0.0-0.9 % Normal IM GRAN % 0.200 Result Comment: IG% - Immature Granulocytes (promyelocytes, myelocytes and metamyelocytes) > 1% indicates that a LEFT SHIFT is Present. LAB L100.2620 2.0-7.7 X10 3/uL Normal Absolute Neut 4.8 LAB L100.2720 0.83-4.51 X10 3/ul Normal Absolute Lymph 3.00 Performed By: #### L100.0100 #### [facility] [address] [place], [address] COMPREHENSIVE METABOLIC Collected: 06/18/2017 Status: F Source: [place] [facility] 2:25 PM [facility] REPOSITORY TYPE CODE TESTS RESULT OUT OF RANGE REFERENCE UNITS LAB L501.0100 74-106 mg/dL Normal GLU 90 Result Comment: Please note revised GLUCOSE reference range effective 2017. LAB L501.1000 7-18 mg/dL Normal BUN 17 LAB L501.1100 0.55-1.02 mg/dL Normal CREAT,SERUM 0.80 Result Comment: The validity of the calculated GFR AND GFRAA in patients over 70 years has not been determined. Clinical correlation is essential. LAB L501.1110 >60 mL/min Normal EST GFR 76 Result Comment: Non- GFR Calc LAB L501.1115 >60 mL/min Normal EST GFR - AA 92 Result Comment: GFR Calc LAB L501.1300 10-20 RATIO High BUN/CRE 21.4 LAB L501.1500 6.4-8.2 g/dL T Normal PROT 7.7 LAB L501.1800 3.2-5.0 g/dL Normal ALB 3.8 LAB L501.1950 2.2-4.2 g/dL Normal GLOB 3.9 LAB L501.2000 0.9-2.4 RATIO Normal A/G 1.0 LAB L501.2200 8.5-10.1 mg/dL CA Normal 9.1 LAB L501.4100 15-37 U/L Normal AST 22 LAB L501.4305 45-117 U/L Normal ALK P 83 LAB L501.4405 13-56 U/L Normal ALT 31 Result Comment: Please note revised ALT reference range effective 2017. LAB L501.4600 0.20-1.00 mg/dL Normal T BILI 0.40 LAB L501.5300 136-145 mmol/L Normal NA 142 LAB L501.5600 3.5-5.1 mmol/L Normal K 3.7 LAB L501.5900 98-107 mmol/L Normal CL 105 LAB L501.6100 21.0-32.0 mmol/L Normal CO2 31.0 LAB L501.6200 5-15 Normal GAP 6 Performed By: #### L500.4050 #### [facility] [address] [place], [address] PROGRESS Observed: 06/05/2017 Status: COMPLETED Source: [place] 3:00 PM [facility] REPOSITORY HNO ID: [id number] Author: Joseph Thacker III Service: (none) Author Type: Physician Type: Progress Notes Filed: 06/05/2017 3:00 PM Note Text: Her bone density does show osteopenia with an estimated 10 year risk of fracture of 15% (with 1 out of 6 chance). I recommend regular weight bearing exercise. Exercises focusing on improving balance would also be helpful. I can recommend referral to [facility] physical therapy to show her appropriate exercises if she desires. Joseph Thacker III, MD, FAAFP BD DXA - AXIAL Observed: 06/05/2017 Status: F Source: [place] 10:27 AM [facility] REPOSITORY * * *Final Report* * * DATE OF EXAM: Jun 05 2017 10:27AM [facility] 0804 - BD DXA - AXIAL [place] B / PROCEDURE REASON: multiple diagnoses * * * * Physician Interpretation * * * * PROCEDURE: BD DXA - AXIAL [place] INDICATION: Other specified disorders of bone density and structure, unspecified site Nondisplaced transverse fracture of left patella, sequela Age-related osteoporosis with current pathological fracture, unspecified site, sequela TECHNIQUE: Low dose AP spine and hip images COMPARISON: 03/28/2010 LUMBAR SPINE: The bone mineral density from L1 through L4 is 0.997 grams per square centimeter which yields a T-score of -0.5. This is 4.4% improved. LEFT HIP: The bone mineral density of the total region of the hip is 0.959 grams per square centimeter which yields a T-score of 0.1. . LEFT FEMORAL NECK: The bone mineral density of the femoral neck is 0.721 grams per square centimeter which yields a T-score of -1.1. . RIGHT HIP: The bone mineral density of the total region of the hip is 0.903 grams per square centimeter which yields a T-score of -0.3. . RIGHT FEMORAL NECK: The bone mineral density of the femoral neck is 0.665 grams per square centimeter which yields a T-score of -1.7. . 10-year Fracture Risk (FRAX): Major osteoporotic fracture risk 15% Hip fracture risk 2.2% IMPRESSION: Osteopenia in both femoral necks. [facility] ORG. CLASSIFICATION OF BONE MASS CLASSIFICATION T-SCORE Normal Greater than -1 Low Bone Mass Between -1 and -2.5 (Osteopenia) Osteoporosis Less than or equal to -2.5 Refrigerated National Truck Driver: PHILIPPE Transcribe Date/Time: Jun 05 2017 12:19P Dictated by : CLAUDIA MARIE MD This examination was interpreted and the report reviewed and electronically signed by: CALUDIA MARIE MD on Jun 05 2017 12:20PM EST [id number] PROGRESS Observed: 06/05/2017 Status: COMPLETED Source: [place] 10:06 AM [facility] REPOSITORY HNO ID: [id number] Author: Danie Lima (Rt) Shalonda Angulo Service: (none) Author Type: Public Interviewer Type: Progress Notes Filed: 06/05/2017 10:16 AM Note Text: Radiology Service Progress Note PATIENT NAME: Bailee Zayas DATE OF SERVICE: June 05, 2017 TIME: 10:06 AM PATIENT IDENTITY VERIFICATION COMPLETED USING TWO (2) METHODS: Patient confirmed name verbally and Date of . PATIENT GENDER DATA: Female. status: : No status: NO. PATIENT RELEVANT IMPLANT DATA REVIEWED: Not Applicable RADIOLOGY DEPARTMENT: [facility] bone density PERIPHERAL IV DATA: Not applicable SIGNED BY: RT Catalina June 05, 2017 10:06 AM PROGRESS Observed: 05/20/2017 Status: COMPLETED Source: [place] 10:22 AM [facility] REPOSITORY HNO ID: [id number] Author: Joseph Thacker III Service: (none) Author Type: Physician Type: Progress Notes Filed: 05/20/2017 12:51 PM Note Text: SUBJECTIVE: This is a 72 year old female that is here today for Chronic Medical Conditions. 1. URI with persistent cough, sore throat x few days 2. asks about bone density--she recently sustained a transverse, nondisplaced fracture of left patella while walking. She denies having a fall. Orthopedics is following her conservatively. She denies significant pain. She has pain in left knee only with kneeling. Last bone density was in 2009 when she was found to have osteopenia though her bone density was good for her. Group --hx of hypercalciuria and vit D def. 3. orthostatic hypotension 4. leg aching helped by gabapentin. 5. ch low back pain. Takes norco 1/2 -1 per day with benefit. She is able to watch plays and ball games if she takes norco. no chest pain, angina, [place] PAST MEDICAL HISTORY Diagnosis Date - Abnormal mammogram 04/05/2010 - Arthritis with psoriasis ([facility]) 01/14/2012 - Cellulitis and abscess of trunk 02/23-26/08 Hospitalized with MRSA left chest wall - Hypercalciuria 03/30/2010 - Hyperlipidemia LDL goal < 100 03/22/2010 - Hyperparathyroidism (HCC) 03/30/2010 - Osteoarthritis of knee 03/22/2010 - Osteoporosis 03/22/2010 - Psoriasis 03/22/2010 - 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 Use sparingly.Earliest Fill Date: 05/06/17 Omeprazole 40 mg capsule TAKE 1 CAPSULE DAILY B Complex Vitamins capsule Take 1 capsule by mouth once daily. Methotrexate Sodium 2.5 mg tablet 8 tablets once a week. folic acid 1 mg tablet Take two tablets by mouth once daily ketoconazole 2 % shampoo Apply 1 application to affected area once daily as needed. No current facility-administered medications on file prior to visit. FAMILY HISTORY Problem Relation Age of Onset - Stroke Mother pneumonia - accident [Other] [OTHER] Father - Breast Cancer Sister 1/2 sister - Coronary Artery Disease Brother Social History Substance Use Topics - Smoking status: Never Smoker - Smokeless tobacco: Never Used - Alcohol use No BP 141/77 Pulse 61 Resp 16 Wt 89.8 kg (198 lb) BMI 33.99 kg/m2 . OBJECTIVE: APPEARANCE Well appearing, alert, in no acute distress, well-hydrated, well nourished., Obese EARS External ears normal, canals clear NOSE/SINUS negative findings: nose shows no deformity, asymmetry, or inflammation, nasal mucosa normal THROAT erythema with small vesicles soft palate. NECK Supple, no adenopathy; thyroid symmetric, normal size, no bruits HEART RRR with normal S1 and S2, no murmurs, no gallops, no JVD appreciated LUNG clear to auscultation ABDOMEN bowel sounds normoactive, no bruits, soft, non-tender, non-distended, without organomegaly or palpable masses, no tenderness to palpation EXTREMITIES mild swelling of the second and third MCP joints of both fingers without erythema or warmth. Good flexion and extension of all fingers with good human resources manager manufacturing. No skin discoloration, No edema, Normal pulses bilaterally. 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 All prescriptions have been APPROPRIATELY filled. No suspicious activity was identified.- 05/20/2017 by Joseph Thacker III MD 2 Joseph Thacker III MD ALLERGIES ALLERGIES DATE TYPE / CODE NAME / CODE REACTION SEVERITY SOURCE 12/10/2017 Drug etanercept/[id number] Other Unknown [place] Allergy/416 7673(RXNORM) [facility] [id number]([facility] ED CT) Repository 12/10/2017 Drug celecoxib/[id number] Other Unknown [place] Allergy/416 731(RXNORM) [facility] [id number]([facility] ED CT) Repository 01/29/2012 DRUG ETANERCEPT OTHER: SEE [address] 142334([facility] Repository ED CT) 03/22/2010 DRUG CELECOXIB OTHER: SEE [address] 235030([facility] Repository ED CT) ENCOUNTERS ENCOUNTERS ADMIT/DISCHARGE ACCOUNT ADMITTING ENCOUNTER LOCATION SOURCE NUMBER CLASS 05/01/2018 [id number] [facility] ing:MTLAB Repository 04/19/2018/04/24/19 [id number] Ambulatory [address] Repository 04/07/2018 [id number] [facility] ing:PAVLAB Repository 03/20/2018/03/20/20 [id number] Ambulatory [address] Repository 12/12/2017 [id number] [facility] ing:OPBI Repository 12/10/2017/12/11/19 [id number] Ambulatory BMSBuilding:B [place] [address] Repository 12/10/2017 [id number] [facility] ing:MTLAB Repository 10/25/2017/10/29/19 [id number] Ambulatory [address] Repository 09/23/2017 [id number] Ambulatory [facility] ing:MTLAB Repository 06/18/2017 [id number] [facility] ing:LAB.FUTUR Repository E 06/05/2017/06/05/19 [id number] Ambulatory [address] Repository 05/20/2017/05/20/19 [id number] Ambulatory [address] Repository PAYERS PAYERS ENCOUNTER GUARANTOR PAYER SUBSCRIBER SOURCE 05/01/2018 SCOTT Mckenzie Primary Insurance:AETNA BAILEETori Warner [id number] MCRPolicy Number: MORTONDOB: [facility] [id number] Date:2109-92-69UQ BOX Repository 72425Plq: [phone] MCALLISTER [phone] () [phone]: 05/01/2018 Secondary NOT GIVENUNK Alana Insurance:SELF PAY Community INSURANCEPolicy Number: Hospital Effective Repository Date:2018-05-01 04/07/2018 SCOTT Mckenzie Primary Insurance:AETALETHEA Warner [id number] MCRPolicy Number: [facility]ONDOB[facility] [id number], [place] Date:4605-33-01OA BOX Repository 76181Azw: [phone] ELVIN MARIN [phone] () [phone]: 04/07/2018 Secondary NOT GIVENUNK Scheller Insurance:SELF PAY Community INSURANCEPolicy Number: Hospital Effective Repository Date:2018-04-07 12/12/2017 SCOTT W Primary Insurance:AETNA BAILEE W Alana [id number] MCRPolicy Number: MORTONDOB: Community TAMARACK MEBGRPLNEffective [id number] [facility] Date:1912-43-75UR BOX Repository 93094Zni: [phone] PASOELVIN [phone] (HP) [phone]: 12/12/2017 Secondary NOT GIVENUNK Alana Insurance:SELF PAY Community INSURANCEPolicy Number: Hospital Effective Repository Date:2017-12-10 12/10/2017 SCOTT W Primary Insurance:AETNA BAILEE W Scheller [id number] MCRPolicy Number: MORTONDOB: Community TAMARACK MEBGRPLNEffective [id number] Clark Medical Center, [place] Date:4030-61-49DB BOX Repository 22538Ziw: [phone] [place] [phone] (HP) [phone]: 12/10/2017 Secondary NOT GIVENUNK Scheller Insurance:SELF PAY Community INSURANCEPolicy Number: Hospital Effective Repository Date:2017-12-10 12/10/2017 SCOTT W Primary Insurance:AETNA BAILEE W Alana [id number] MCRPolicy Number: MORTONDOB: Community TAMARACK MEBGRPLNEffective [id number] Clark Medical Center, [place] Date:8570-19-53ET BOX Repository 56347Hmr: [phone] [place] [phone] (HP) [phone]: 12/10/2017 Secondary NOT GIVENUNK Alana Insurance:SELF PAY Community INSURANCEPolicy Number: Hospital Effective Repository Date:2017-12-10 09/23/2017 SCOTT W Primary Insurance:AETNA BAILEE W Alana [id number] MCRPolicy Number: MORTONDOB: Community TAMARACK MEBGRPLNEffective [id number] Clark Medical Center, [place] Date:9682-02-81CI BOX Repository 19883Vbt: [phone] ELVIN MARIN [phone] () [phone]: 09/23/2017 Secondary NOT GIVENUNK Scheller Insurance:SELF PAY Community INSURANCEPolicy Number: Hospital Effective Repository Date:2017-09-23 06/18/2017 SCOTT Mckenzie Primary Insurance:AETNA BAILEE W Scheller [id number] MCRPolicy Number: DARLINEONDOB: [facility]ADA[facility] MEBGRPLNEffective [id number], [place] Date:6456-24-38NM BOX Repository 46[address]Dic: [phone] ELVIN MARIN [phone] () [phone]: 06/18/2017 Secondary NOT GIVENUNK Alana Insurance:SELF PAY Community INSURANCEPolicy Number: Hospital Effective Repository Date:2017-06-17
== END ==
PROVIDERS: Family Provider Family Medicine; PCP Family Medicine; Referring Provider Internal Medicine Rheumatology; Visit Provider Internal Medicine Rheumatology
DX: L40.59 Other psoriatic arthropathy (principal); M17.0 Bilateral primary osteoarthritis of knee; M18.0 Bilateral primary osteoarthritis of first carpometacarpal joints; Z79.899 Other long term (current) drug therapy; Z87.11 Personal history of peptic ulcer disease
CPT/HCPCS: 36415; 80053; 85025

== ENCOUNTER → 2018-07-23 10:50 | Outpatient (CLI) | payer MEDICARE, SELFPAY ==
[2018-07-23 12:19] LABS: Absolute Lymphocyte Count 2.44 X10^3/ul (0.83-4.51); Absolute Neutrophil Count 3.9 X10^3/uL (2.0-7.7); Basophil# 0.03 X10^3/uL; Basophil% 0.4 % (0-1); Eosinophil# 0.33 X10^3/uL; Eosinophils% 4.4 % (0-5); Hematocrit 39.9 % (37-47); Hemoglobin 12.9 g/dl (12.0-15.0); Lymphocyte # 2.44 X10^3/ul (4.0); Lymphocyte % 32.7 % (19-41); Mean Corp Hgb Conc 32.3 g/gl (32-36); Mean Corpuscular Hgb 30.3 pg (27.0-32.0); Mean Corpuscular Volume 93.7 fL (81-99); Monocyte# 0.77 X10^3/uL; Monocyte% 10.3 % (0-10); Neutrophil # 3.89 X10^3/uL (2.7-7.7); Neutrophil % 52.1 % (47-70); Platelet Count 329 K/mm3 (150-450); RBC Distribution Width CV 15.4 % (11.6-14.6); RBC Distribution Width SD 52.4 fl (35.1-43.9); Red Blood Count 4.26 M/mm3 (4.2-5.4); White Blood Count 7.5 K/mm3 (4.4-11.0)
[2018-07-23 12:24] LABS: POSITIVE COUNT NO; POSITIVE DIFFERENTIAL NO; POSITIVE MORPHOLOGY NO
[2018-07-23 12:35] LABS: ALB/GLOB Ratio 1.1 RATIO (0.9-2.4); AST(SGOT) 20 U/L (15-37); Alanine Aminotransfer ALT/SGPT 24 U/L (13-56); Albumin, Serum 3.7 g/dL (3.2-5.0); Alkaline Phosphatase 72 U/L (45-117); Anion Gap 8 (5-15); BUN 14 mg/dL (7-18); BUN/Creat Ratio 18.2 RATIO (10-20); Calcium,Total 8.9 mg/dL (8.5-10.1); Chloride 108 mmol/L (98-107); Creatinine, Serum 0.77 mg/dL (0.55-1.02); EST Glomerular Filtration Rate 79 mL/min (>60); Est Glom Filt Rate - Afr Amer 95 mL/min (>60); Globulin 3.4 g/dL (2.2-4.2); Glucose 92 mg/dL (74-106); Potassium 4.2 mmol/L (3.5-5.1); Protein, Total 7.1 g/dL (6.4-8.2); Sodium Level 142 mmol/L (136-145)
== END ==
PROVIDERS: Family Provider Family Medicine; PCP Family Medicine; Referring Provider Internal Medicine Rheumatology; Visit Provider Internal Medicine Rheumatology
DX: L40.59 Other psoriatic arthropathy (principal); M17.0 Bilateral primary osteoarthritis of knee; M18.0 Bilateral primary osteoarthritis of first carpometacarpal joints; Z87.11 Personal history of peptic ulcer disease; Z79.899 Other long term (current) drug therapy
CPT/HCPCS: 36415; 80053; 85025

== ENCOUNTER → 2018-11-07 07:54 | Outpatient (CLI) | payer MEDICARE, SELFPAY ==
[2018-11-07 10:13] LABS: Absolute Lymphocyte Count 2.42 X10^3/uL (0.83-4.51); Absolute Neutrophil Count 6.3 X10^3/uL (2.0-7.7); Basophil# 0.05 X10^3/uL; Basophil% 0.5 % (0-1); Eosinophil# 0.58 X10^3/uL; Eosinophils% 5.6 % (0-5); Hematocrit 41.5 % (37-47); Hemoglobin 13.4 g/dL (12.0-15.0); Lymphocyte # 2.42 X10^3/ul (4.0); Lymphocyte % 23.2 % (19-41); Mean Corp Hgb Conc 32.3 g/dL (32-36); Mean Corpuscular Hgb 30.8 pg (27.0-32.0); Mean Corpuscular Volume 95.4 fL (81-99); Mean Platelet Vol. 10.2 fl (6.2-12.0); Monocyte# 1.05 X10^3/uL; Monocyte% 10.1 % (0-10); NRBC Flagged by Analyzer 0 % (0-5); Neutrophil # 6.27 X10^3/uL (2.7-7.7); Neutrophil % 60.2 % (47-70); Platelet Count 354 K/mm3 (150-450); RBC Distribution Width CV 15.5 % (11.6-14.6); RBC Distribution Width SD 53.6 fl (35.1-43.9); Red Blood Count 4.35 M/mm3 (4.2-5.4); White Blood Count 10.4 K/mm3 (4.4-11.0)
[2018-11-07 10:28] LABS: AST(SGOT) 16 U/L (15-37); Alanine Aminotransfer ALT/SGPT 23 U/L (13-56); Albumin, Serum 3.8 g/dL (3.2-5.0); Alkaline Phosphatase 79 U/L (45-117); Anion Gap 3 (5-15); BUN 15 mg/dL (7-18); Calcium,Total 9.5 mg/dL (8.5-10.1); Chloride 104 mmol/L (98-107); Creatinine, Serum 0.88 mg/dL (0.55-1.02); EST Glomerular Filtration Rate 67 mL/min (>60); Est Glom Filt Rate - Afr Amer 81 mL/min (>60); Globulin 3.9 g/dL (2.2-4.2); Glucose 106 mg/dL (74-106); Protein, Total 7.7 g/dL (6.4-8.2); Sodium Level 135 mmol/L (136-145)
== END ==
PROVIDERS: Family Provider Family Medicine; PCP Family Medicine; Referring Provider Internal Medicine Rheumatology; Visit Provider Internal Medicine Rheumatology
DX: L40.59 Other psoriatic arthropathy (principal); M17.0 Bilateral primary osteoarthritis of knee; M18.0 Bilateral primary osteoarthritis of first carpometacarpal joints; Z87.11 Personal history of peptic ulcer disease; Z79.899 Other long term (current) drug therapy
CPT/HCPCS: 36415; 80053; 85025

== ENCOUNTER → 2019-01-08 11:54 | Outpatient (CLI) | payer MEDICARE, SELFPAY ==
--- NOTE | 2019-01-08 11:56 | BI_ITS ---
MAMMOGRAPHY - BILATERAL SCREENING REASON FOR EXAM: Female, 73 years old. Routine annual screening examination. PERTINENT HISTORY: Sister with breast cancer. Prior left excisional breast biopsy. TECHNIQUE: Digital bilateral breast sofia (3D mammographic acquisition) in the CC and MLO projections. 2-D mediolateral oblique (MLO) and craniocaudad (CC) views of both breasts were obtained. CAD: Full Field Digital Mammography with Computer Added Detection was performed. COMPARISON: Comparison is made with prior examination dated December 12, 2017 and February 06, 2017. FINDINGS: Breast Composition: The breasts are almost entirely fatty. There are no dominant masses or suspicious calcifications. Stable benign-appearing bilateral axillary lymph nodes. No other significant abnormalities are identified. There has been no significant change since the prior study. BI/SCREEN MAMM (CAD) W/SOFIA BILAT IMPRESSION: Stable bilateral screening mammogram. Yearly follow-up mammogram recommended. (A) ASSESSMENT CATEGORY: BIRADS Category 2: Benign. A letter regarding these results will be sent to the patient by the facility within 30 days. Approximately 10% of breast cancers are not detected by mammography. A normal mammogram should not delay biopsy of a clinically suspicious abnormality. [id number] Electronically Signed: Tushar Fleming, at 15:17 EDT , Service support ,
== END ==
PROVIDERS: Family Provider Family Medicine; PCP Family Medicine; Referring Provider Family Medicine; Visit Provider Family Medicine
DX: Z12.31 Encounter for screening mammogram for malignant neoplasm of breast (principal)
CPT/HCPCS: 77063; 77067

== ENCOUNTER → 2019-02-05 09:45 | Outpatient (CLI) | payer MEDICARE, SELFPAY ==
--- NOTE | 2019-02-05 12:25 | VDLE_ITS ---
Reason For Study: pain RIGHT LEFT CFV is compressible, spontaneous, phasic, GSV is normal. competent and demonstrates normal CFV is compressible, spontaneous, phasic, augmentation. competent, and demonstrates normal Procedure augmentation. Exam performed in department. FV is compressible, spontaneous, phasic, The exam was diagnostic. competent and demonstrates normal A preliminary report was called and/or faxed augmentation. to [facility] clinical desk. POP V is compressible, spontaneous, phasic, competent and demonstrates normal augmentation. T/P Trunk is compressible. PTV is compressible. LT PerV is compressible. Interpretation Summary Deep veins of the left lower extremity are patent and compressible segmentally. There is no evidence of left lower extremity deep vein thrombosis. Valvular competence appears intact within the proximal deep venous system on the left . The left great saphenous vein appears patent and compressible segmentally. Ordering Physician: Juan Luke Referring Physician: KARYN Thacker M.D. Performed By: Enrique Ayoub RVT
[2019-02-05 12:46] LABS: Absolute Lymphocyte Count 2.78 X10^3/uL (0.83-4.51); Absolute Neutrophil Count 3.6 X10^3/uL (2.0-7.7); Basophil# 0.06 X10^3/uL; Basophil% 0.8 % (0-1); Eosinophil# 0.24 X10^3/uL; Eosinophils% 3.3 % (0-5); Hematocrit 44.8 % (37-47); Hemoglobin 14.3 g/dL (12.0-15.0); Lymphocyte # 2.78 X10^3/ul (4.0); Lymphocyte % 37.8 % (19-41); Mean Corp Hgb Conc 31.9 g/dL (32-36); Mean Corpuscular Hgb 30.1 pg (27.0-32.0); Mean Corpuscular Volume 94.3 fL (81-99); Mean Platelet Vol. 10.4 fl (6.2-12.0); Monocyte# 0.65 X10^3/uL; Monocyte% 8.8 % (0-10); NRBC Flagged by Analyzer 0 % (0-5); Neutrophil % 48.9 % (47-70); Platelet Count 338 K/mm3 (150-450); RBC Distribution Width CV 14.3 % (11.6-14.6); RBC Distribution Width SD 49.1 fl (35.1-43.9); Red Blood Count 4.75 M/mm3 (4.2-5.4); White Blood Count 7.4 K/mm3 (4.4-11.0)
[2019-02-05 13:49] LABS: AST(SGOT) 18 U/L (15-37); Alanine Aminotransfer ALT/SGPT 22 U/L (13-56); Albumin, Serum 3.8 g/dL (3.2-5.0); Alkaline Phosphatase 83 U/L (45-117); Anion Gap 5 (5-15); BUN 16 mg/dL (7-18); BUN/Creat Ratio 21.7 RATIO (10-20); Chloride 108 mmol/L (98-107); Creatinine, Serum 0.74 mg/dL (0.55-1.02); EST Glomerular Filtration Rate 82 mL/min (>60); Est Glom Filt Rate - Afr Amer 100 mL/min (>60); Globulin 3.7 g/dL (2.2-4.2); Glucose 104 mg/dL (74-106); Potassium 3.7 mmol/L (3.5-5.1); Protein, Total 7.5 g/dL (6.4-8.2); Sodium Level 142 mmol/L (136-145)
== END ==
PROVIDERS: Family Provider Family Medicine; PCP Family Medicine; Referring Provider Internal Medicine Rheumatology; Visit Provider Internal Medicine Rheumatology
DX: L40.59 Other psoriatic arthropathy (principal); M79.605 Pain in left leg; M17.0 Bilateral primary osteoarthritis of knee; M18.0 Bilateral primary osteoarthritis of first carpometacarpal joints; Z79.899 Other long term (current) drug therapy; Z87.11 Personal history of peptic ulcer disease
CPT/HCPCS: 36415; 80053; 85025; 93971

== ENCOUNTER → 2019-04-30 10:53 | Outpatient (CLI) | payer MEDICARE, SELFPAY ==
[2019-04-30 12:21] LABS: Absolute Lymphocyte Count 1.92 X10^3/uL (0.83-4.51); Absolute Neutrophil Count 3.1 X10^3/uL (2.0-7.7); Basophil# 0.05 X10^3/uL; Basophil% 0.8 % (0-1); Eosinophil# 0.52 X10^3/uL; Hematocrit 43.4 % (37-47); Hemoglobin 13.5 g/dL (12.0-15.0); Lymphocyte # 1.92 X10^3/ul (4.0); Lymphocyte % 29.5 % (19-41); Mean Corp Hgb Conc 31.1 g/dL (32-36); Mean Corpuscular Hgb 28.5 pg (27.0-32.0); Mean Corpuscular Volume 91.8 fL (81-99); Mean Platelet Vol. 9.6 fl (6.2-12.0); Monocyte# 0.91 X10^3/uL; NRBC Flagged by Analyzer 0 % (0-5); Neutrophil # 3.07 X10^3/uL (2.7-7.7); Neutrophil % 47.1 % (47-70); Platelet Count 448 K/mm3 (150-450); RBC Distribution Width CV 14.5 % (11.6-14.6); RBC Distribution Width SD 48.5 fl (35.1-43.9); Red Blood Count 4.73 M/mm3 (4.2-5.4); White Blood Count 6.5 K/mm3 (4.4-11.0)
[2019-04-30 12:33] LABS: ALB/GLOB Ratio 0.7 RATIO (0.9-2.4); AST(SGOT) 17 U/L (15-37); Alanine Aminotransfer ALT/SGPT 25 U/L (13-56); Albumin, Serum 3.2 g/dL (3.2-5.0); Alkaline Phosphatase 79 U/L (45-117); Anion Gap 4 (5-15); BUN 7 mg/dL (7-18); BUN/Creat Ratio 7.9 RATIO (10-20); Calcium,Total 9.2 mg/dL (8.5-10.1); Chloride 105 mmol/L (98-107); Creatinine, Serum 0.88 mg/dL (0.55-1.02); EST Glomerular Filtration Rate 67 mL/min (>60); Est Glom Filt Rate - Afr Amer 81 mL/min (>60); Globulin 4.6 g/dL (2.2-4.2); Glucose 116 mg/dL (74-106); Potassium 3.5 mmol/L (3.5-5.1); Protein, Total 7.8 g/dL (6.4-8.2); Sodium Level 137 mmol/L (136-145)
== END ==
PROVIDERS: PCP Family Medicine; Referring Provider Internal Medicine Rheumatology; Visit Provider Internal Medicine Rheumatology
DX: L40.59 Other psoriatic arthropathy (principal); L40.8 Other psoriasis; M17.0 Bilateral primary osteoarthritis of knee; M18.0 Bilateral primary osteoarthritis of first carpometacarpal joints; Z87.11 Personal history of peptic ulcer disease; Z79.899 Other long term (current) drug therapy
CPT/HCPCS: 36415; 80053; 85025

== ENCOUNTER → 2019-07-30 08:57 | Outpatient (CLI) | payer MEDICARE, SELFPAY ==
[2019-07-30 09:49] LABS: Absolute Lymphocyte Count 2.63 X10^3/uL (0.83-4.51); Absolute Neutrophil Count 2.9 X10^3/uL (2.0-7.7); Basophil# 0.05 X10^3/uL; Basophil% 0.7 % (0-1); Eosinophil# 0.37 X10^3/uL; Eosinophils% 5.4 % (0-5); Hematocrit 41.5 % (37-47); Hemoglobin 13.3 g/dL (12.0-15.0); Lymphocyte # 2.63 X10^3/ul (4.0); Lymphocyte % 38.6 % (19-41); Mean Corpuscular Hgb 29.6 pg (27.0-32.0); Mean Corpuscular Volume 92.2 fL (81-99); Mean Platelet Vol. 9.9 fl (6.2-12.0); Monocyte# 0.82 X10^3/uL; NRBC Flagged by Analyzer 0 % (0-5); Neutrophil # 2.93 X10^3/uL (2.7-7.7); Platelet Count 287 K/mm3 (150-450); RBC Distribution Width CV 16.1 % (11.6-14.6); RBC Distribution Width SD 53.1 fl (35.1-43.9); White Blood Count 6.8 K/mm3 (4.4-11.0)
[2019-07-30 10:02] LABS: AST(SGOT) 20 U/L (15-37); Alanine Aminotransfer ALT/SGPT 26 U/L (13-56); Albumin, Serum 3.7 g/dL (3.2-5.0); Alkaline Phosphatase 85 U/L (45-117); Anion Gap 7 (5-15); BUN 13 mg/dL (7-18); BUN/Creat Ratio 16.7 RATIO (10-20); Calcium,Total 9.2 mg/dL (8.5-10.1); Chloride 105 mmol/L (98-107); Creatinine, Serum 0.78 mg/dL (0.55-1.02); EST Glomerular Filtration Rate 77 mL/min (>60); Est Glom Filt Rate - Afr Amer 93 mL/min (>60); Globulin 3.7 g/dL (2.2-4.2); Glucose 112 mg/dL (74-106); Potassium 3.9 mmol/L (3.5-5.1); Protein, Total 7.4 g/dL (6.4-8.2); Sodium Level 141 mmol/L (136-145)
== END ==
PROVIDERS: PCP Family Medicine; Referring Provider Internal Medicine Rheumatology; Visit Provider Internal Medicine Rheumatology
DX: L40.59 Other psoriatic arthropathy (principal); L40.8 Other psoriasis; M17.0 Bilateral primary osteoarthritis of knee; M18.0 Bilateral primary osteoarthritis of first carpometacarpal joints; Z87.11 Personal history of peptic ulcer disease; Z79.899 Other long term (current) drug therapy
CPT/HCPCS: 36415; 80053; 85025

== ENCOUNTER → 2019-11-26 12:17 | Outpatient (CLI) | payer MEDICARE, SELFPAY ==
[2019-11-26 15:36] LABS: Absolute Lymphocyte Count 2.53 X10^3/uL (0.83-4.51); Absolute Neutrophil Count 3.7 X10^3/uL (2.0-7.7); Basophil# 0.06 X10^3/uL; Basophil% 0.8 % (0-1); Eosinophil# 0.46 X10^3/uL; Eosinophils% 6.1 % (0-5); Hematocrit 43.4 % (37-47); Hemoglobin 13.8 g/dL (12.0-15.0); Lymphocyte # 2.53 X10^3/ul (4.0); Lymphocyte % 33.6 % (19-41); Mean Corp Hgb Conc 31.8 g/dL (32-36); Mean Corpuscular Volume 97.5 fL (81-99); Mean Platelet Vol. 10.6 fl (6.2-12.0); Monocyte# 0.72 X10^3/uL; Monocyte% 9.6 % (0-10); NRBC Flagged by Analyzer 0 % (0-5); Neutrophil # 3.73 X10^3/uL (2.7-7.7); Neutrophil % 49.5 % (47-70); Platelet Count 331 K/mm3 (150-450); RBC Distribution Width CV 15.4 % (11.6-14.6); RBC Distribution Width SD 54.5 fl (35.1-43.9); Red Blood Count 4.45 M/mm3 (4.2-5.4); White Blood Count 7.5 K/mm3 (4.4-11.0)
[2019-11-26 15:52] LABS: AST(SGOT) 19 U/L (15-37); Alanine Aminotransfer ALT/SGPT 29 U/L (13-56); Albumin, Serum 3.6 g/dL (3.2-5.0); Alkaline Phosphatase 81 U/L (45-117); Anion Gap 4 (5-15); BUN 15 mg/dL (7-18); BUN/Creat Ratio 19.2 RATIO (10-20); Calcium,Total 8.8 mg/dL (8.5-10.1); Chloride 106 mmol/L (98-107); Creatinine, Serum 0.78 mg/dL (0.55-1.02); EST Glomerular Filtration Rate 77 mL/min (>60); Est Glom Filt Rate - Afr Amer 93 mL/min (>60); Globulin 3.7 g/dL (2.2-4.2); Glucose 93 mg/dL (74-106); Protein, Total 7.3 g/dL (6.4-8.2); Sodium Level 140 mmol/L (136-145)
== END ==
PROVIDERS: PCP Family Medicine; Visit Provider Internal Medicine Rheumatology
DX: L40.59 Other psoriatic arthropathy (principal); M17.0 Bilateral primary osteoarthritis of knee; M18.0 Bilateral primary osteoarthritis of first carpometacarpal joints; Z79.899 Other long term (current) drug therapy; Z87.11 Personal history of peptic ulcer disease
CPT/HCPCS: 36415; 80053; 85025

== ENCOUNTER → 2020-01-14 08:39 | Outpatient (CLI) | payer MEDICARE, SELFPAY ==
--- NOTE | 2020-01-14 08:42 | BI_ITS ---
MAMMOGRAPHY - BILATERAL SCREENING REASON FOR EXAM: Female, 74 years old. Routine annual screening examination. PERTINENT HISTORY: Sister with breast cancer. History of left excisional breast biopsy. TECHNIQUE: Digital bilateral breast sofia (3D mammographic acquisition) in the CC and MLO projections. 2-D mediolateral oblique (MLO) and craniocaudad (CC) views of both breasts were obtained. CAD: Full Field Digital Mammography with Computer Added Detection was performed. COMPARISON: Comparison is made with prior study dated 01/08/2019 and 12/12/2017. FINDINGS: Breast Composition: There are scattered areas of fibroglandular density. There are no dominant masses or suspicious calcifications. Stable benign-appearing bilateral axillary lymph nodes. No other significant abnormalities are identified. There has been no significant change since the prior study. BI/SCREEN MAMM (CAD) W/SOFIA BILAT IMPRESSION: Stable bilateral screening mammogram. Yearly follow-up mammogram recommended. (A) ASSESSMENT CATEGORY: BIRADS Category 2: Benign. A letter regarding these results will be sent to the patient by the facility within 30 days. Approximately 10% of breast cancers are not detected by mammography. A normal mammogram should not delay biopsy of a clinically suspicious abnormality. [id number] Electronically Signed: Tushar Fleming, at 10:04 EDT , Service support ,
== END ==
PROVIDERS: PCP Family Medicine; Referring Provider Family Medicine; Visit Provider Family Medicine
DX: Z12.31 Encounter for screening mammogram for malignant neoplasm of breast (principal)
CPT/HCPCS: 77063; 77067

== ENCOUNTER → 2021-01-16 10:55 | Outpatient (CLI) | payer MEDICARE, SELFPAY ==
--- NOTE | 2021-01-16 10:58 | BI_ITS ---
MAMMOGRAPHY - BILATERAL SCREENING 3-D TOMOSYNTHESIS REASON FOR EXAM: Female, 75 years old. SCREENING PERTINENT HISTORY: No significant family history. TECHNIQUE: 2-D mammograms and 3-D Tomosynthesis of the breast (s) were performed. CAD was performed. COMPARISON: 01/14/2020 FINDINGS: The breast composition is composed of scattered fibroglandular density. Scattered benign calcifications are seen. No dense spiculated masses or suspicious microcalcifications are identified. No architectural distortion is identified. There is no skin thickening or retraction. There has been no significant change since the prior study. BI/SCRN MAMM (CAD)W/SOFIA BILAT IMPRESSION: No mammographic signs of malignancy. Routine yearly mammograms recommended. ASSESSMENT CATEGORY: BIRADS Category 1: Negative. A letter regarding these results will be sent to the patient by the facility within 30 days. FOLLOW UP RECOMMENDATION: Yearly follow up mammogram recommended. (A) Approximately 10% of breast cancers are not detected by mammography. A normal mammogram should not delay biopsy of a clinically suspicious abnormality. Electronically Signed: Reggie Gee MD at 18:05 EDT Tel , Service support ,
== END ==
PROVIDERS: PCP Physician Assistant; Visit Provider Physician Assistant
DX: Z12.31 Encounter for screening mammogram for malignant neoplasm of breast (principal)
CPT/HCPCS: 77063; 77067

== ENCOUNTER 2021-02-03 06:30 | Day surgery (SDC) | payer MEDICARE, SELFPAY ==
[2021-02-03] VITALS (7 sets, daily range): BP systolic 108–138; BP diastolic 57–68; PULSE 65–72; RESP 16; TEMP 36.3–36.9; O2SAT 90–95; BMI 32.9
--- NOTE | 2021-02-03 06:55 | HP.PCM_ITS ---
History and Physical Date of Admission: 02/03/[address] Micha Thacker MD on 12/05/20 at 1609 Intake Chief Complaint: blood in stool Allergies celecoxib [From Celebrex] Adverse Reaction (Mild, Verified 12/02/20 09:15) gastric ulcer etanercept [From Enbrel] Adverse Reaction (Mild, Verified 12/02/20 09:15) boils Medications calcium carbonate-vitamin D3 1 ea PO DAILY 05/09/16 [History Confirmed 12/10/17] fluorometholone 1 drp EACH EYE DAILY 05/09/16 [History Confirmed 12/02/20] folic acid 2 mg PO DAILY 05/09/16 [History Confirmed 12/02/20] methotrexate sodium 20 mg PO TH 05/09/16 [History Confirmed 12/02/20] omeprazole 40 mg PO DAILY 05/09/16 [History Confirmed 12/02/20] vitamin B complex 1 ea PO DAILY 05/09/16 [History Confirmed 12/02/20] gabapentin 100 mg PO TIDCM 01/31/17 [History Confirmed 12/02/20] hydrocodone-acetaminophen 1 tab PO Q6H PRN PRN #8 tab 02/06/17 [Rx Confirmed 12/02/20] secukinumab 150 mg/mL subcutaneous pen injector 150 mg SUBCUT Q4W ml 12/02/20 [History Confirmed 12/02/20] Assessment and Plan Assessment and Plan (1) Occult blood positive stool: Status: Acute Plan: Despite the patient's immunologic therapy she has been cleared to proceed with colonoscopy as scheduled. The patient is aware and we will proceed as noted. I appreciate the opportunity of assisting with the surgical care. Micha Thacker M.D., F.A.C.S. 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 Is patient in pain?: No Allergies celecoxib [From Celebrex] Adverse Reaction (Mild, Verified 12/02/20 09:15) gastric ulcer etanercept [From Enbrel] Adverse Reaction (Mild, Verified 12/02/20 09:15) boils Medications calcium carbonate-vitamin D3 1 ea PO DAILY 05/09/16 [History Confirmed 12/10/17] fluorometholone 1 drp EACH EYE DAILY 05/09/16 [History Confirmed 12/02/20] folic acid 2 mg PO DAILY 05/09/16 [History Confirmed 12/02/20] methotrexate sodium 20 mg PO TH 05/09/16 [History Confirmed 12/02/20] omeprazole 40 mg PO DAILY 05/09/16 [History Confirmed 12/02/20] vitamin B complex 1 ea PO DAILY 05/09/16 [History Confirmed 12/02/20] gabapentin 100 mg PO TIDCM 01/31/17 [History Confirmed 12/02/20] hydrocodone-acetaminophen 1 tab PO Q6H PRN PRN #8 tab 02/06/17 [Rx Confirmed 12/02/20] secukinumab 150 mg/mL subcutaneous pen injector 150 mg SUBCUT Q4W ml 12/02/20 [History Confirmed 12/02/20] Is last menstrual period known: No Post menopausal: Yes Patient : No PFSH Medical History (Updated 12/02/20 @ 09:14 by Iqra Rodriguez) Chest pain GERD (gastroesophageal reflux disease) Non-cardiac chest pain Osteoarthritis Psoriatic arthritis Restless legs syndrome (RLS) Surgical History H/O: hysterectomy History of cholecystectomy Hx of breast biopsy S/P cataract extraction Status post total knee replacement, left Status post total knee replacement, right Family History Father Heart disease Sister Breast cancer Diabetes Social History Smoking Status: Never smoker second hand exposure: No alcohol intake: never substance use type: does not use caffeine: Yes what type of physical activity do you participate in: none frequency: does not exercise seatbelt use: always HPI HPI HPI: DAMARIS ZAYAS, is a 75 F who presents to the office today for surgical consultation regarding blood in stool. The patient's previous colonoscopy was March 04, 2012. This was normal at that time. Pertinent medications that she is on include gabapentin and ibuprofen and topical diclofenac and Cosentyx and omeprazole and hydrocodone acetaminophen. Medical problems include osteoarthritis and psoriasis and lumbar radiculopathy and GE reflux disease. She has not noticed any bright red blood per rectum or melena. She does complain of intermittent constant mid abdominal discomfort. She then showed me a box of Tylenol Sinus liquid caps that she takes to relieve the pain. She has not any weight loss. She does have psoriatic arthritis. She has had a very remote colonoscopy. She states that she had trouble with that bowel prep as well was only able to take half of it. She claims that she absolutely cannot drink much fluid barely half a glass. She has great hesitancy that she will be able to achieve the bowel prep. ROS General General: Yes fatigue; No weight change, appetite, colon cancer, breast cancer or weakness HEENT HEENT: No difficulty swallowing, eye injury, eye surgery, swollen glands or hoarseness Endo Endocrine: No thyroid disease, diabetes mellitus, thyroid cancer, Hair loss, heat intolerance or cold intolerance Musc Musculoskeletal: Yes back problems and arthritis; No rheumatoid arthritis, gout or joint pain Cardio Cardiovascular: No murmur, pacemaker, heart disease, atrial fibrillation, high blood pressure, heart attack, heart stent, palpitations, shortness of breat with exertion or chest pain Psych Psychiatric: No depression, anxiety or hearing voices Resp Respiratory: Yes shortness of breath, No sleep apnea, No cough, No COPD, No asthma, No emphysema and No wheezing Gastro Gastrointestinal: No abdominal pain, Yes nausea or vomiting, No diarrhea, No constipation, Yes blood in stool, No acid reflux, No hemorrhoids, No ulcers, No gallbladder problem and No black,tarry stools Afshin Hematologic: No blood thinners, No blood disorders, No bleeding, No anemia and No blood clots Neuro Neurologic: No weakness Exam Const General: cooperative, comfortable and no acute distress Nutritional Appearance: obese HENMT Head: normal to inspection Chest Other: Increased anterior posterior diameter Resp Effort & Inspection: normal respiratory effort Cardio Rate: regular rate Rhythm: regular rhythm GI Palpation: soft Other: Overweight, I am not able to detect any internal organs, mildly distended Neuro General: patient alert, patient awake and patient oriented x3 Extrem General: no calf tenderness Psych Appearance: grossly normal Assessment and Plan Assessment and Plan (1) Occult blood positive stool: Status: Acute Plan - Dr. Micha Thacker MD: Because of the occult positive stool I recommended the patient a esophagogastroduodenoscopy with possible biopsy and colonoscopy with possible biopsy or polypectomy as indicated. The patient has been self-medicating for abdominal pain. It is of note however that she is on chronic narcotics for abdominal pain. She is very hesitant and does not believe that she will be able to tolerate her bowel prep. We will offer her a wide variety of bowel preps. I anticipate performing this with monitored anesthesia care. We will contact her swing saw operator regarding her psoriatic arthritis methotrexate and Cosentyx therapy. We will try to arrange our that will endoscopy at the end of the month just prior to her next dosing. I appreciate the opportunity of assisting with her surgical care Copy: BRYN Bliss M.D., F.A.C.S. I have re-examined the patient. There are no clinical changes since date of exam.
[2021-02-03] MEDS: Lactated Ringers 1,000 ML 100 ML IV (07:05)
--- NOTE | 2021-02-03 07:30 | IMM_PTH ---
PATIENT: DAMARIS ZAYAS LOC: EN U#:[id number] AGE/SX: 75/F ROOM: RE02/03/[address]: Dr. Micha Thacker MD : 1945 BED: DIS: 02/03/2021 SPEC #: [id number] RECD: 02/03/21 10:00 STATUS: DEMOND REQ #: [id number] FANY: 02/03/21 07:[address]: Micha Thacker DEPT: IMMUNOHISTOCHEMISTRY RECD BY: Katie Tripathi ENTERED: 02/03/21 10:00 SP TYPE: IMMUNO OTHR DR: TAMARA Desouza Tissues: B - Stomach, NOS Procedures: H Pylori (initial) PHYSICIAN & INSTITUTION [place] [id number] SPECIMEN INFORMATION: Tissue Source: B ? Antrum biopsy Clinical Info: Occult blood positive stool Specimen Number: [id number] CPT code: 97845 METHODOLOGY: Deparaffinized sections of prefer/formalin-fixed tissue or PAP/DQ stained slides are incubated with monoclonal/polyclonal antibodies/oligonucleotide probes. Localization is made via biotin free immunoperoxidase method. Appropriate controls are performed and reacted as expected. Results on target cell population are indicated in the following table: RESULTS: ANTIBODY / CLONE RESULT Block B H Pylori (polyclonal) negative These tests were developed and their performance characteristics determined by [facility]. They may not have been cleared or approved by the U.S. Food and Drug Administration. The FDA has determined that such clearance or approval is not necessary. INTERPRETATION: B. Antrum biopsy: Negative for Helicobacter pylori organisms. BONNIE:kyle 02/07/2021
--- NOTE | 2021-02-03 07:30 | EGD_PTH ---
PATIENT: DAMARIS ZAYAS LOC: EN U#:[id number] AGE/SX: 75/F ROOM: RE02/03/[address]: Dr. Micha Thacker MD : 1945 BED: DIS: 02/03/2021 SPEC #: [id number] RECD: 02/03/21 09:05 STATUS: DEMOND MARIBEL #: [id number] FANY: 02/03/21 07:[address]: Micha Thacker DEPT: SURGICAL PATHOLOGY RECD BY: Anh Ibarra ENTERED: 02/03/21 09:57 SP TYPE: EGD BIOPSY [facility] DR: TAMARA Desouza Tissues: A - Duodenum, NOS B - Gastric mucous membrane C - Stomach, NOS D - Gastric fundus E - Esophagus, NOS F - Esophagus, NOS Procedures: Surgery Specimen Level IV HEADER OPERATION: Colonoscopy, EGD ([facility]) PRE-OP DIAGNOSIS: Occult blood positive stool TISSUE SUBMITTED: A ? Duodenum biopsy, B ? Antrum biopsy for H. pylori and path, C ? Greater curvature biopsy, D ? Fundic polyp biopsy, E ? Distal esophagus biopsy, F ? Mid esophagus biopsy MICROSCOPIC DIAGNOSIS A. Duodenum, biopsy: A fragment of duodenal mucosa, no pathologic diagnosis. B. Antrum, biopsy: Moderate gastritis. See microscopic description and comment. C. Greater curvature, biopsy: Mild gastritis. See microscopic description. D. Fundic polyp, biopsy: Consistent with fundic gland polyp. E. Distal esophagus, biopsy: A fragment of squamous epithelium with congestion. F. Mid esophagus, biopsy: Fragments of squamous epithelium, no pathologic diagnosis. SJ:kyle 02/06/2021 COMMENT B. The results of immunohistochemistry for Helicobacter pylori will be reported separately ([id number]). MICROSCOPIC DESCRIPTION Slides are reviewed. B. The specimen shows fragments of gastric mucosa with chronic inflammatory cell infiltrates in the lamina propria consisting of lymphocytes and plasma cells, consistent with moderate chronic gastritis. C. The specimen shows fragments of gastric mucosa with chronic inflammatory cell infiltrates in the lamina propria consisting of lymphocytes and plasma cells, consistent with mild chronic gastritis. GROSS DESCRIPTION A - Received in fixative is one container labeled with the patient's name and designated duodenum biopsy. The specimen consists of one irregular fragment of light soto soft tissue that measures 0.3 x 0.3 x 0.1 cm. The specimen is totally submitted in one cassette. B - Received in fixative is one container labeled with the patient's name and designated antrum biopsy. The specimen consists of one irregular fragment of light soto soft tissue that measures 0.3 x 0.3 x 0.1 cm. The specimen is totally submitted in one cassette. C - Received in fixative is one container labeled with the patient's name and designated greater curvature biopsy. The specimen consists of one irregular fragment of light soto soft tissue that measures 0.3 x 0.3 x 0.1 cm. The specimen is totally submitted in one cassette. D - Received in fixative is one container labeled with the patient's name and designated biopsy fundic polyp. The specimen consists of one irregular fragment of light soto soft tissue that measures 0.3 x 0.3 x 0.1 cm. The specimen is totally submitted in one cassette. E - Received in fixative is one container labeled with the patient's name and designated biopsy distal esophagus. The specimen consists of one irregular fragment of light soto soft tissue that measures 0.5 x 0.5 x 0.1 cm. The specimen is totally submitted in one cassette. F - Received in fixative is one container labeled with the patient's name and designated biopsy mid esophagus. The specimen consists of two irregular fragments of light soto soft tissue that in aggregate measure 0.5 x 0.2 x 0.1 cm. The specimen is totally submitted in one cassette. / BONNIE:kyle 02/03/21 TC:3 CPT: 45655 x6
--- NOTE | 2021-02-03 08:24 | OP.EGD_ITS ---
Patient Name: Bailee Rios Procedure Date: 02/03/2021 7:39 AM Date of : 1945 Age: 75 Procedure: Upper GI endoscopy Indications: Generalized abdominal pain Providers: Micha Thacker MD Medicines: See the Anesthesia note for documentation of the administered medications Complications: No immediate complications. Procedure: Pre-Anesthesia Assessment: - Prior to the procedure, a History and Physical was performed, and patient medications and allergies were reviewed. The patient's tolerance of previous anesthesia was also reviewed. The risks and benefits of the procedure and the sedation options and risks were discussed with the patient. All questions were answered, and informed consent was obtained. Prior Anticoagulants: The patient has taken no previous anticoagulant or antiplatelet agents. ASA Grade Assessment: III - A patient with severe systemic disease. After reviewing the risks and benefits, the patient was deemed in satisfactory condition to undergo the procedure. After obtaining informed consent, the endoscope was passed under direct vision. Throughout the procedure, the patient's blood pressure, pulse, and oxygen saturations were monitored continuously. The gastroscope was introduced through the mouth, and advanced to the second part of duodenum. The upper GI endoscopy was accomplished without difficulty. The patient tolerated the procedure well. Scope In: 7:48:28 AM Scope Out: 7:57:00 AM Total Procedure Duration Time 0 hours 8 minutes 32 seconds Findings: The Z-line was variable and was found 37 cm from the incisors. The mid esophagus was normal. Biopsies were taken with a cold forceps for histology. Esophagitis with no bleeding was found 37 cm from the incisors. Biopsies were taken with a cold forceps for histology. A small hiatal hernia was present. A few sessile polyps with no stigmata of recent bleeding were found in the gastric fundus. The polyp was removed with a cold biopsy forceps. Resection and retrieval were complete. Diffuse mildly erythematous mucosa without bleeding was found on the greater curvature of the stomach. Biopsies were taken with a cold forceps for histology. The gastric antrum was normal. Biopsies were taken with a cold forceps for histology. The examined duodenum was normal. Biopsies were taken with a cold forceps for histology. Impression: - Z-line variable, 37 cm from the incisors. - Normal mid esophagus. Biopsied. - Reflux esophagitis. Biopsied. - Small hiatal hernia. - A few gastric polyps. Resected and retrieved. - Erythematous mucosa in the greater curvature. Biopsied. - Normal antrum. Biopsied. - Normal examined duodenum. Biopsied. Recommendation: - Discharge patient to home. - Resume previous diet. - Continue present medications. - Use sucralfate tablets 1 gram PO QID. Procedure Code(s): --- Professional --- 82088, Esophagogastroduodenoscopy, flexible, transoral; with biopsy, single or multiple Diagnosis Code(s): --- Professional --- K22.8, Other specified diseases of esophagus K21.0, Gastro-esophageal reflux disease with esophagitis K44.9, Diaphragmatic hernia without obstruction or gangrene K31.7, Polyp of stomach and duodenum K31.89, Other diseases of stomach and duodenum R10.84, Generalized abdominal pain CPT copyright 2017 [employer]. All rights reserved. The codes documented in this report are preliminary and upon construction teacher review may be revised to meet current compliance requirements. Micha Thacker MD 02/03/2021 8:23:58 AM This report has been signed electronically. Number of Addenda: 0 Note Initiated On: 02/03/2021 7:39 AM
--- NOTE | 2021-02-03 08:24 | OP.CCLET_ITS ---
02/03/2021 Tian Hernandez Re : Upper GI endoscopy procedure for Bailee Rios Dear David This procedure was performed on Wednesday, February 03, 2021. My impressions and recommendations are as follows: Impressions : - Z-line variable, 37 cm from the incisors. - Normal mid esophagus. Biopsied. - Reflux esophagitis. Biopsied. - Small hiatal hernia. - A few gastric polyps. Resected and retrieved. - Erythematous mucosa in the greater curvature. Biopsied. - Normal antrum. Biopsied. - Normal examined duodenum. Biopsied. Recommendations : - Discharge patient to home. - Resume previous diet. - Continue present medications. - Use sucralfate tablets 1 gram PO QID. My findings are described in the full procedure note, which is enclosed. If I can be of further assistance, please feel free to contact me at Doctor phone number(s): Work: . Sincerely, Micha Thacker MD 02/03/2021 8:23:58 AM This report has been signed electronically.
--- NOTE | 2021-02-03 08:30 | OP.CCLET_ITS ---
02/03/2021 Tian Hernandez Re : Colonoscopy procedure for Bailee Riso Dear David This procedure was performed on Wednesday, February 03, 2021. My impressions and recommendations are as follows: Impressions : - Non-thrombosed external hemorrhoids, non-thrombosed internal hemorrhoids and internal hemorrhoids that prolapse with straining, but spontaneously regress to the resting position (Grade II) found on digital rectal exam. - Diverticulosis in the sigmoid colon and in the descending colon. - Tortuous colon. - No specimens collected. Recommendations : - Discharge patient to home. - Resume previous diet. - Continue present medications. - Repeat colonoscopy is not recommended due to current age (66 years or older) for screening purposes. My findings are described in the full procedure note, which is enclosed. If I can be of further assistance, please feel free to contact me at Doctor phone number(s): Work: . Sincerely, Micha Thacker MD 02/03/2021 8:29:43 AM This report has been signed electronically.
--- NOTE | 2021-02-03 08:30 | OP.COLON_ITS ---
Patient Name: Bailee Rios Procedure Date: 02/03/2021 7:57 AM Date of : 1945 Age: 75 Procedure: Colonoscopy Indications: Generalized abdominal pain Providers: Micha Thacker MD Medicines: See the Anesthesia note for documentation of the administered medications Patient Profile: Last Colonoscopy: February 2012. Complications: No immediate complications. Procedure: Pre-Anesthesia Assessment: - Prior to the procedure, a History and Physical was performed, and patient medications and allergies were reviewed. The patient's tolerance of previous anesthesia was also reviewed. The risks and benefits of the procedure and the sedation options and risks were discussed with the patient. All questions were answered, and informed consent was obtained. Prior Anticoagulants: The patient has taken no previous anticoagulant or antiplatelet agents. ASA Grade Assessment: III - A patient with severe systemic disease. After reviewing the risks and benefits, the patient was deemed in satisfactory condition to undergo the procedure. After I obtained informed consent, the scope was passed under direct vision. Throughout the procedure, the patient's blood pressure, pulse, and oxygen saturations were monitored continuously. The Colonoscope was introduced through the anus and advanced to the cecum, identified by appendiceal orifice and ileocecal valve. The colonoscopy was performed with moderate difficulty due to multiple diverticula in the colon. The patient tolerated the procedure well. The quality of the bowel preparation was good. Scope In: 8:00:29 AM Scope Withdrawal Time 0 hours 7 minutes 41 seconds Scope Out: 8:17:04 AM Total Procedure Duration Time 0 hours 16 minutes 35 seconds Findings: The digital rectal exam findings include non-thrombosed external hemorrhoids, non-thrombosed internal hemorrhoids and internal hemorrhoids that prolapse with straining, but spontaneously regress to the resting position (Grade II). Multiple diverticula were found in the sigmoid colon and descending colon. The left colon was moderately tortuous. Impression: - Non-thrombosed external hemorrhoids, non-thrombosed internal hemorrhoids and internal hemorrhoids that prolapse with straining, but spontaneously regress to the resting position (Grade II) found on digital rectal exam. - Diverticulosis in the sigmoid colon and in the descending colon. - Tortuous colon. - No specimens collected. Recommendation: - Discharge patient to home. - Resume previous diet. - Continue present medications. - Repeat colonoscopy is not recommended due to current age (66 years or older) for screening purposes. Procedure Code(s): --- Professional --- 48360, Colonoscopy, flexible; diagnostic, including collection of specimen(s) by brushing or washing, when performed (separate procedure) Diagnosis Code(s): --- Professional --- K64.1, Second degree hemorrhoids K64.4, Residual hemorrhoidal skin tags R10.84, Generalized abdominal pain K57.30, Diverticulosis of large intestine without perforation or abscess without bleeding Q43.8, Other specified congenital malformations of intestine CPT copyright 2017 [employer]. All rights reserved. The codes documented in this report are preliminary and upon development technologist review may be revised to meet current compliance requirements. Micha Thacker MD 02/03/2021 8:29:43 AM This report has been signed electronically. Number of Addenda: 0 Note Initiated On: 02/03/2021 7:57 AM
== END 2021-02-03 09:41 | disposition home or self-care (01) ==
LOC: EN 06:32 → AC 06:34
PROVIDERS: PCP Physician Assistant; Referring Provider Physician Assistant; Visit Provider Surgery
PROC: 0DJD8ZZ Inspection of Lower Intestinal Tract, Via Natural or Artificial Opening Endoscopic (ICD-10-PCS; CPT 45378; principal; 2021-02-03 07:25)
DX: K64.1 Second degree hemorrhoids (principal); K64.4 Residual hemorrhoidal skin tags; K57.30 Diverticulosis of large intestine without perforation or abscess without bleeding; K29.70 Gastritis, unspecified, without bleeding; K21.00 Gastro-esophageal reflux disease with esophagitis, without bleeding; K31.7 Polyp of stomach and duodenum; K44.9 Diaphragmatic hernia without obstruction or gangrene; R10.84 Generalized abdominal pain; R19.5 Other fecal abnormalities; M19.90 Unspecified osteoarthritis, unspecified site; Z79.891 Long term (current) use of opiate analgesic; Z79.899 Other long term (current) drug therapy
CPT/HCPCS: 43239; G0121; 88305; 88342; J7120; J2405

== ENCOUNTER → 2022-01-18 | Outpatient (CLI) | payer MEDICARE, SELFPAY ==
--- NOTE | 2022-01-18 14:05 | BI_ITS ---
MAMMOGRAPHY - BILATERAL SCREENING REASON FOR EXAM: Female, 76 years old. Routine annual screening examination. PERTINENT HISTORY: Sister with breast cancer. Remote left excisional breast biopsy. TECHNIQUE: Digital bilateral breast sofia (3D mammographic acquisition) in the CC and MLO projections. 2-D mediolateral oblique (MLO) and craniocaudad (CC) views of both breasts were obtained. CAD: Full Field Digital Mammography with Computer Added Detection was performed. COMPARISON: Comparison is made with prior examination dated 01/16/2021 and 01/14/2020. FINDINGS: Breast Composition: There are scattered areas of fibroglandular density. There are no dominant masses or suspicious calcifications. Stable small benign-appearing bilateral axillary. No other significant abnormalities are identified. There has been no significant change since the prior study. BI/SCRN MAMM (CAD)W/SOFIA BILAT IMPRESSION: Stable bilateral screening mammogram. Yearly follow-up mammogram recommended. (A) ASSESSMENT CATEGORY: BIRADS Category 2: Benign. A letter regarding these results will be sent to the patient by the facility within 30 days. Approximately 10% of breast cancers are not detected by mammography. A normal mammogram should not delay biopsy of a clinically suspicious abnormality. [id number] Electronically Signed: Tushar Fleming MD at 14:57 EDT ,
== END | disposition home or self-care (01) ==
LOC: OPBI 14:03
PROVIDERS: PCP Physician Assistant; Visit Provider Physician Assistant
DX: Z12.31 Encounter for screening mammogram for malignant neoplasm of breast (principal); N60.12 Diffuse cystic mastopathy of left breast; Z80.3 Family history of malignant neoplasm of breast
CPT/HCPCS: 77063; 77067

== ENCOUNTER 2022-12-12 13:25 | Emergency (ER) | payer MEDICARE, SELFPAY ==
[2022-12-12 13:29] VITALS: TEMP 37.4; BMI 33.4
[2022-12-12 13:32] VITALS: BP 140/65; PULSE 78; RESP 14; O2SAT 96
--- NOTE | 2022-12-12 14:13 | VDLE_ITS ---
Reason For Study: Swelling RLE RIGHT LEFT GSV is normal. CFV is compressible, spontaneous, phasic, CFV is compressible, spontaneous, phasic, competent, and demonstrates normal competent and demonstrates normal augmentation. augmentation. FV is compressible, spontaneous, phasic, competent and demonstrates normal augmentation. POP V is compressible, spontaneous, phasic, competent and demonstrates normal augmentation. T/P Trunk is compressible. RT PerV is compressible. Rt PTV and Rt SoleusV are dilated and NON COMPRESSIBLE consistent with acute DVT Relied on color doppler in the thigh due to recent femur fracture and surgery. Procedure This is a venous duplex using B-mode, color flow and spectral Doppler. Exam performed portable in ED. A preliminary report was called and/or faxed to Dr. Mckinnon. VL/Venous Duplex US, Unilateral Interpretation Summary Acute deep vein thrombosis is noted in the right posterior tibial vein, soleus vein. Ordering Physician: Florian Paz Referring Physician: Shawn Hernandez Performed By: Arabella Collado, CRISTIANE, RVT
--- NOTE | 2022-12-12 14:13 | ED.VIS.LOWEX ---
HPI History of Present Illness Chief Complaint: Lower Extremity Injury Narrative Narrative: 77-year-old female states that she was in [place] on , approximately 7 days ago, and she was getting go nighttime swimming under the lights. She missed a step and fell onto her right lower extremity. She states she had a femur fracture, went to the hospital, and the following day had surgery on her right femur. She flew home yesterday and was at the airport sitting in a chair, and on a plane for 6 hours. She has been unable to ambulate as well secondary to her recent surgery. She denies any chest pain or shortness of breath, but complains of increased swelling of her right lower extremity. She states it is double the size of her left leg. No fevers or chills, no other symptoms. [facility] Medical History Back pain Chest pain Easy bruising Gastric reflux GERD (gastroesophageal reflux disease) History of edema History of pain when walking History of stress test History of ulceration Non-cardiac chest pain Non-smoker Osteoarthritis Psoriatic arthritis Restless legs Restless legs syndrome (RLS) Shortness of breath on exertion Wears glasses Home Medications calcium carbonate 600 mg-vitamin D3 20 mcg (800 unit) tablet 1 ea PO DAILY 05/09/16 [History Last Taken 05/08/16] fluorometholone 0.1 % eye drops,suspension 1 drp EACH EYE DAILY 05/09/16 [History Last Taken 05/09/16 08:00] folic acid 1 mg tablet 2 mg PO DAILY 05/09/16 [History Last Taken Unknown] methotrexate sodium 2.5 mg tablet 20 mg PO 05/09/16 [History Last Taken Unknown] omeprazole 40 mg capsule,delayed release 40 mg PO DAILY 05/09/16 [History Last Taken 02/03/21 05:20] vitamin B complex 1 ea PO DAILY 05/09/16 [History Last Taken 05/08/16] gabapentin 100 mg capsule 100 mg PO TIDCM 01/31/17 [History Last Taken 02/03/21 05:20] hydrocodone-acetaminophen 5-325mg 5mg-325mg 1 tab PO Q6H PRN PRN Pain #8 tabs 02/06/17 [Rx Last Taken Unknown] secukinumab 150 mg/mL subcutaneous pen injector 150 mg subcut Q4W 12/02/20 [History Last Taken Unknown] sucralfate 1 gram tablet See Rx Instructions .Route .COMPLEX #180 tabs 04/25/21 [Rx Last Taken Unknown] apixaban 5 mg (74 tabs) tablets in a dose pack (Eliquis DVT-PE Treat 30D Start) 5 mg PO BID #74 tabs 12/12/22 [Rx Last Taken Unknown] atorvastatin 20 mg tablet 20 mg PO DAILY 12/12/22 [History Last Taken Unknown] ibandronate 150 mg tablet 150 mg PO DAILY 12/12/22 [History Last Taken Unknown] Allergy/AdvReac Type Severity Reaction Status Date / Time celecoxib [From Celebrex] AdvReac Mild gastric Verified 12/12/22 13:27 ulcer etanercept [From Enbrel] AdvReac Mild boils Verified 12/12/22 13:27 Family History Father Heart disease Sister Breast cancer Diabetes Surgical History H/O: hysterectomy History of cholecystectomy Hx of breast biopsy Hx of colonoscopy Hx of foot surgery S/P cataract extraction Status post total knee replacement, left Status post total knee replacement, right Social History Smoking Status: Never smoker second hand exposure: No alcohol intake: never substance use type: does not use caffeine: Yes what type of physical activity do you participate in: none frequency: does not exercise seatbelt use: always ROS ROS ED ROS Narrative Constitutional: No fever, no chills. HEENT: No sore throat. No neck pain. No loss of vision. No rhinorrhea. Cardiovascular: No chest pain. No palpitations. Right lower extremity swelling/pedal edema. Respiratory: No cough, no shortness of breath. Abdominal: No abdominal pain. No nausea. No vomiting. Genitourinary: No dysuria. No hematuria. Musculoskeletal: No myalgias. No arthralgias. Neurologic: No headaches. No dizziness. No lightheadedness. Skin: No rash. No change in color. Psychiatric: No depression. No anxiety. EXAM Physical Exam Narrative Exam Narrative: Afebrile. Vital signs noted. HEENT: Normocephalic. Atraumatic. PERRL, EOMI. Neck soft and supple. No point tenderness or step off. Cardiovascular: Regular rate and rhythm. No murmurs, rubs, or gallops appreciated. Respiratory: No tachypnea. Lungs clear to auscultation bilaterally. Gastrointestinal: Abdomen soft, nontender, with normoactive bowel sounds. No rebound or guarding. Neurological: Awake. Alert. Nonfocal, nonlateralizing. Skin: No rash. Normal color. No pallor. Positive bandages on right lateral thigh x2, clean, dry, and intact. Musculoskeletal: Right lower extremity pedal edema. Full range of motion extremities. Palpable dorsalis pedis pulse. Const Vital Signs: 12/12/22 13:29 12/12/22 13:32 Temperature 99.3 F H Temperature Source Oral Pulse Rate 78 Respiratory Rate 14 Blood Pressure 140/65 H Blood Pressure Mean 90 Pulse Ox 96 Oxygen Delivery Method Room Air MDM MDM MDM Narrative Medical decision making narrative: In the differential diagnosis is DVT given her recent surgery and immobility. She could also have dependent edema and an inflammatory response to her recent surgery. Ultrasound of the right lower extremity was obtained. Preliminary report shows that she has 2 DVTs below the knee on the right side and the soleus and popliteal veins. I discussed patient with Dr. Murillo with vascular surgery. As she has had recent surgery and will have continuing immobility, it was thought that although these are below the knee, that she should be treated with a blood thinner. She will be started on Eliquis and given her 10 mg starting dose here in the emergency department and a prescription written for the remainder. She was warned of the risk of increased bleeding, GI hemorrhage, and intracranial hemorrhage. Her is already on Eliquis and is familiar with the side effect profile and risks. Risk-benefit ratio was discussed with the patient. Additionally, I do not feel that she requires observation at this time, and this was discussed with the patient and her , and he would like to have her discharged home. Return instructions to the emergency department were reviewed. They are to follow-up with Dr. Murillo with vascular surgery closely as an outpatient. Disposition is discharged home in stable condition. Management Discussion w/another healthcare provider: [employer] (Dr. Murillo, vascular surgery) Discharge Plan Triage Chief Complaint: Lower Extremity Injury Other Complaint: Edema ED Provider: Florian Paz Dx/Rx/DC Orders Clinical Impression: Right leg swelling, DVT of lower extremity (deep venous thrombosis) Instructions: ED Deep Vein Thrombosis (DVT) Prescriptions: New Michelle DVT-PE Treat 30D Start 5 mg (74 tabs) tablets,dose pack 5 mg PO BID Qty: 74 0RF No Action secukinumab 150 mg/mL pen injector 150 mg subcut Q4W omeprazole 40 MG capsule 40 mg PO DAILY Patient Comments: GERD methotrexate sodium 2.5 MG tablet 20 mg PO Patient Comments: 20 MG TOTAL ON THURSDAYS BUT SEPERATES 10 MG IN AM 10MG IN PM, PSORIASIS CAUSED BY ARTHRITIS folic acid 1 MG tablet 2 mg PO DAILY Patient Comments: SUPPLEMENT vitamin B complex 1 EACH capsule 1 ea PO DAILY Patient Comments: SUPPLEMENT calcium carbonate-vitamin D3 1 EACH tablet 1 ea PO DAILY Patient Comments: SUPPLEMENT fluorometholone 5 ML drops,suspension 1 drp EACH EYE DAILY Patient Comments: DRY EYES gabapentin 100 MG capsule 100 mg PO TIDCM hydrocodone-acetaminophen 1 TABLET tablet 1 tab PO Q6H PRN PRN (Reason: Pain) Qty: 8 0RF atorvastatin 20 mg tablet 20 mg PO DAILY ibandronate 150 mg tablet 150 mg PO DAILY sucralfate 1 gram tablet See Rx Instructions .ROUTE .COMPLEX Qty: 180 3RF Dose Instruction: take 1 tablet by mouth four times a day Rx Instructions: take 1 tablet by mouth four times a day Primary Care Provider: Tian Hernandez Referrals: Isaias Murillo MD [Med Staff - Active Staff] - 3-5 Days Tian Hernandez PA [Primary Care Provider] - Activity Restrictions/Additional Instructions: Call Dr. Murillo tomorrow for an appointment to be seen to discuss further care for your deep venous thromboses. Disposition Disposition: Home, Self Care
[2022-12-12 15:38] VITALS: RESP 16
[2022-12-12] MEDS: APIXABAN 5 MG TABLET 10 MG PO (15:53)
== END 2022-12-12 16:05 | disposition home or self-care (01) ==
PROVIDERS: Emergency Provider Emergency Medicine; PCP Physician Assistant; Visit Provider Emergency Medicine
DX: I82.401 Acute embolism and thrombosis of unspecified deep veins of right lower extremity (principal); Z79.899 Other long term (current) drug therapy
CPT/HCPCS: 93971; 99285

== ENCOUNTER 2023-01-04 13:47 | Emergency (ER) | payer MEDICARE, SELFPAY ==
[2023-01-04 13:48] VITALS: BP 152/75; PULSE 65; RESP 18; TEMP 36.8; O2SAT 99; BMI 37.8
--- NOTE | 2023-01-04 14:27 | EDS_ITS ---
HPI HPI - Fall History of Present Illness Chief Complaint: Fall Detail of Chief Complaint: Right buttock and pelvis pain. Informant: patient and spouse/S.O. Occured/Mechanism Occurred: Today Mechanism/Context: Yes same level fall and Yes trip Usually ambulates: Walker Pain/Injury Pain Location: pelvis and lower extremity Quality of Pain: Sharp and Aching Current Severity: Moderate Maximum Severity: Moderate Associated Symptoms Associated Symptoms: Negative for Parasthesias, Weakness, Loss of function, Inability to ambulate, Loss of consciousness or Amnesia Narrative Narrative: 77-year-old female was in [place] 3 weeks ago fell and has a right femur fracture which was repaired in the hospital there. She developed postop DVT and is currently on Eliquis. Today she was at home and lost her balance fell landing on her buttock complaining of right hip and primarily pelvis pain. Did not hit her head. No LOC. No head or neck pain. No recent illness. Prior similar symptoms: Yes Recent Illness/Hospitalization: Yes PFSH [facility] Medical History Back pain Chest pain Easy bruising Gastric reflux GERD (gastroesophageal reflux disease) History of edema History of pain when walking History of stress test History of ulceration Non-cardiac chest pain Non-smoker Osteoarthritis Psoriatic arthritis Restless legs Restless legs syndrome (RLS) Shortness of breath on exertion Wears glasses Home Medications calcium carbonate 600 mg-vitamin D3 20 mcg (800 unit) tablet 1 ea PO DAILY 05/09/16 [History Last Taken 05/08/16] fluorometholone 0.1 % eye drops,suspension 1 drp EACH EYE DAILY 05/09/16 [History Last Taken 05/09/16 08:00] folic acid 1 mg tablet 2 mg PO DAILY 05/09/16 [History Last Taken Unknown] methotrexate sodium 2.5 mg tablet 20 mg PO TH 05/09/16 [History Last Taken Unknown] omeprazole 40 mg capsule,delayed release 40 mg PO DAILY 05/09/16 [History Last Taken 02/03/21 05:20] vitamin B complex 1 ea PO DAILY 05/09/16 [History Last Taken 05/08/16] gabapentin 100 mg capsule 100 mg PO TIDCM 01/31/17 [History Last Taken 02/03/21 05:20] hydrocodone-acetaminophen 5-325mg 5mg-325mg 1 tab PO Q6H PRN PRN Pain #8 tabs 02/06/17 [Rx Last Taken Unknown] secukinumab 150 mg/mL subcutaneous pen injector 150 mg subcut Q4W 12/02/20 [History Last Taken Unknown] sucralfate 1 gram tablet See Rx Instructions .Route .COMPLEX #180 tabs 04/25/21 [Rx Last Taken Unknown] atorvastatin 20 mg tablet 20 mg PO DAILY 12/12/22 [History Last Taken Unknown] ibandronate 150 mg tablet 150 mg PO DAILY 12/12/22 [History Last Taken Unknown] rivaroxaban 20 mg tablet (Xarelto) 20 mg PO DAILY #30 tabs 01/02/23 [Rx Last Taken Unknown] hydrocodone-acetaminophen 5-325mg 5mg-325mg 1 tab PO Q6H PRN PRN Pain 4 days #15 TABLETS 01/04/23 [Rx Last Taken Unknown] Allergy/AdvReac Type Severity Reaction Status Date / Time celecoxib [From Celebrex] AdvReac Mild gastric Verified 01/04/23 13:52 ulcer etanercept [From Enbrel] AdvReac Mild boils Verified 01/04/23 13:52 Family History Father Heart disease Sister Breast cancer Diabetes Surgical History H/O: hysterectomy History of cholecystectomy Hx of breast biopsy Hx of colonoscopy Hx of foot surgery S/P cataract extraction Status post total knee replacement, left Status post total knee replacement, right Social History Smoking Status: Never smoker second hand exposure: No alcohol intake: never substance use type: does not use caffeine: Yes what type of physical activity do you participate in: none frequency: does not exercise seatbelt use: always ROS ROS ED ROS Narrative No recent illness. Review of Systems ROS Unobtainable: Denies due to encephalopathy Constitutional Constitutional ED: Denies chills or fever(s) Eyes Eyes: Denies blurry vision ENT ENT ED: Denies ear pain or rhinorrhea Cardiovascular Cardiovascular: Denies chest pain or palpitations Respiratory/Chest Respiratory/Chest: Denies cough or dyspnea Gastrointestinal Gastrointestinal: Denies abdominal pain Genitourinary Genitourinary ED: Denies dysuria or hematuria Musculoskeletal Musculoskeletal: Denies arthralgias or back pain Integumentary Denies abscess or Abrasions Neurologic Neurologic: Denies headache(s) Psychiatric Psychiatric: Denies anxiety Endocrine Endocrinology: Denies polydipsia Hematologic/Lymphatic Hematologic/Lymphatic: Denies easy bleeding or easy bruising Allergic/Immunologic Allergic/Immunologic ED: Denies mouth swelling or tongue swelling EXAM Physical Exam Narrative Exam Narrative: 77-year-old female vital signs stable afebrile. She is just lying in bed. On EMS lift device. At bedside. H EENT exam atraumatic nontender. Pupils round reactive light. No hematoma. C-spine trachea nontender. Lungs clear. Heart regular rate and rhythm no murmur. Chest wall and ribs nontender. Abdomen soft nontender. Pelvic girdle intact. Tenderness to her right groin along the pubic rami. Right thigh, knee and lower leg are nontender she does have swelling of the right lower leg from the recent DVTs and surgery. Both upper extremities are nontender with full range of motion. 5 and [address] strength[address] She has a minor abrasion to her left elbow. Left lower extremity is nontender full range of motion. Neurologically she is awake and alert. No focal motor deficits. Questions and following commands. Const Vital Signs: 01/04/23 13:48 01/04/23 15:12 Temperature 98.3 F Temperature Source Temporal Pulse Rate 65 Respiratory Rate 18 Respiratory Effort Normal Respiratory Depth Normal Respiratory Pattern Normal Blood Pressure 152/75 H Blood Pressure Mean 100 Pulse Ox 99 Oxygen Delivery Method Room Air Room Air Oxygen Flow Rate (L/min) 97 Positive well nourished and well developed; Negative for obese, cachectic, contractures or unkempt General Appearance ED: well developed and NAD; Negative for unkempt, cachectic or contractures Nutritional Appearance: Negative for cachectic or obese HEENT Reports normocephalic atraumatic; Negative for trauma, contusion, hematoma or tenderness Eyes PERRL and EOMs intact bilaterally General Eye ED: Negative for pale conjunctiva or scleral icterus Neck full ROM, no lymphadenopathy and supple General: Negative for tenderness Chest Wall inspection of chest normal and palpation of chest normal Chest: Negative for other Resp normal respiratory effort, no retractions and clear to auscultation bilaterally Effort and Inspection: Negative for pain with movement Auscultation: Negative for rales, rhonchi or wheezes Cardio regular rate, regular rhythm, S1 normal heart sound, S2 normal heart sound and no murmurs Rate: Negative for bradycardia or tachycardic Rhythm: Negative for abnormal rhythm Bruits: Negative for other GI non-tender, non-distended and no masses Inspection: Negative for abdominal distention Auscultation: normoactive bowel sounds Palpation: soft; Negative for guarding or rebound tenderness present Back/Spine no CVA tenderness General Back: Negative for CVA tenderness Cervical Spine: Negative for cervical spine tenderness Thoracic Spine / Upper Back: Negative for ROM limited Lumbar Spine / Lower Back: Negative for lumbar spinal tenderness Neuro oriented x3, CN's II-XII intact bilaterally, moves all extremities and no focal motor deficits [place] Coma Scale: document GCS findings Spontaneous Obeys Commands Oriented 15 Sensorium / Orientation: alert, oriented to person, oriented to place and oriented to time; Negative for orientation impaired, confused, lethargic or stuporous Motor Exam: strength 5/5 throughout Psych mental status grossly normal and thought process normal Appearance: Negative for unkempt Attitude: No agitated Mood & Affect: Negative for depressed, anxious or tearful Skin Skin Narrative: Left elbow abrasion. General Skin Exam: Negative for other Lesions: no lesions Rashes: no rashes Trauma: abrasion MDM MDM MDM Narrative Medical decision making narrative: 77-year-old tripped and fell today landing on her right buttock complaining of right pelvis pain. X-ray being obtained. 1 hydrocodone for pain. She is on Eliquis she did not hit her head. She has a minor abrasion to her left elbow. She had a recent fall 3+ weeks ago had a femur fracture and had surgery for that. Patient doing well at 3:45 PM. She feels improved. I did evaluate her back and buttock and there is no significant hematoma or trauma. We went over x-ray results which were unremarkable showing the prior femur fracture repair. There was no obvious hip fracture or pelvis fracture. She will be discharged home. She be written for hydrocodone for pain. Outpatient follow-up as needed. History & Record Review Discussion w/independent historian: Patient and Family Additional record(s) reviewed:: Prior inpatient record, Prior outpatient record, Prior ED visit and Prior labs Radiography Diagnostic Testing: Clinical Impression(s) from Imaging Studies Femur X-Ray 01/04/23 14:40 IMPRESSION: Intramedullary reid fixation device within the right femur for alignment of the nondisplaced transverse fracture of the mid femur. Electronically Signed: Tushar Fleming MD at 15:00 EDT , Pelvis X-Ray 01/04/23 14:40 IMPRESSION: No acute abnormality is seen. Electronically Signed: Tushar Fleming MD at 15:01 EDT , Right hip and pelvis x-rays Discharge Plan Triage Chief Complaint: Fall ED Provider: Corey Mao Dx/Rx/DC Orders Clinical Impression: Hx of fracture of femur, Contusion of buttock, Fall, Contusion of hip, right Instructions: ED Hip Contusion Prescriptions: New hydrocodone-acetaminophen 5-325 mg tablet 1 tab PO Q6H PRN PRN (Reason: Pain) 4 Days Qty: 15 0RF No Action secukinumab 150 mg/mL pen injector 150 mg subcut Q4W Xarelto 20 mg tablet 20 mg PO DAILY Qty: 30 2RF Rx Instructions: must administer with evening meal omeprazole 40 MG capsule 40 mg PO DAILY Patient Comments: GERD methotrexate sodium 2.5 MG tablet 20 mg PO Patient Comments: 20 MG TOTAL ON THURSDAYS BUT SEPERATES 10 MG IN AM 10MG IN PM, PSORIASIS CAUSED BY ARTHRITIS folic acid 1 MG tablet 2 mg PO DAILY Patient Comments: SUPPLEMENT vitamin B complex 1 EACH capsule 1 ea PO DAILY Patient Comments: SUPPLEMENT calcium carbonate-vitamin D3 1 EACH tablet 1 ea PO DAILY Patient Comments: SUPPLEMENT fluorometholone 5 ML drops,suspension 1 drp EACH EYE DAILY Patient Comments: DRY EYES gabapentin 100 MG capsule 100 mg PO TIDCM hydrocodone-acetaminophen 1 TABLET tablet 1 tab PO Q6H PRN PRN (Reason: Pain) Qty: 8 0RF atorvastatin 20 mg tablet 20 mg PO DAILY ibandronate 150 mg tablet 150 mg PO DAILY sucralfate 1 gram tablet See Rx Instructions .ROUTE .COMPLEX Qty: 180 3RF Dose Instruction: take 1 tablet by mouth four times a day Rx Instructions: take 1 tablet by mouth four times a day Primary Care Provider: Tian Hernandez Referrals: Tian Hernandez, PA [Primary Care Provider] - As Needed Activity Restrictions/Additional Instructions: Hydrocodone for pain. You are drinking plenty of water and fluids, fruits and vegetable and fiber and stool softener to prevent constipation due to the pain medication. ice to your buttocks to prevent significant swelling. You may get bruising due to the fall and being on the blood thinner. Disposition Disposition: Home, Self Care
[2023-01-04] MEDS: HYDROcodone Bitartrate/Apap 5/325 Tablet PO (14:31)
--- NOTE | 2023-01-04 14:40 | RAD_ITS ---
STUDY: X-RAY - PELVIS REASON FOR EXAM: Female, 77 years old. Fall TECHNIQUE: One view of the pelvis was obtained. COMPARISON: None. FINDINGS: There is a non-specific bowel gas pattern. Normal visualized soft tissue structures. Fall. Normal bilateral iliac wings, sacroiliac joints and visualized sacrum. Normal visualized bilateral superior and inferior pubic rami. There is narrowing with sclerosis of the pubic symphysis. Normal ischial tuberosities. Status post intramedullary reid fixation and compression screw repair in the proximal femur. Normal right acetabulum. Normal right hip joint. Normal visualized left femoral head. Normal left acetabulum. There is mild articular joint space narrowing of the left hip. RAD/Pelvis 1 or 2 Views IMPRESSION: No acute abnormality is seen. Electronically Signed: Tushar Fleming MD at 15:01 EDT ,
--- NOTE | 2023-01-04 14:40 | RAD_ITS ---
STUDY: X-RAY - RIGHT FEMUR REASON FOR STUDY: Female, 77 years old. FELL,PAIN TECHNIQUE: 3 view(s) of the femur. COMPARISON: None. FINDINGS: Intramedullary reid fixation for a nondisplaced transverse fracture through the mid femoral diaphysis. Normal visualized soft tissue structure. RAD/Femur Min 2 Views IMPRESSION: Intramedullary reid fixation device within the right femur for alignment of the nondisplaced transverse fracture of the mid femur. Electronically Signed: Tushar Fleming MD at 15:00 EDT ,
[2023-01-04 16:12] VITALS: RESP 18
== END 2023-01-04 16:13 | disposition home or self-care (01) ==
PROVIDERS: Emergency Provider Emergency Medicine; PCP Physician Assistant; Visit Provider Emergency Medicine
DX: S30.0XXA Contusion of lower back and pelvis, initial encounter (principal); S70.01XA Contusion of right hip, initial encounter; K21.9 Gastro-esophageal reflux disease without esophagitis; W18.30XA Fall on same level, unspecified, initial encounter; Z79.899 Other long term (current) drug therapy
CPT/HCPCS: 72170; 73552; 99285

== ENCOUNTER → 2023-03-27 | Outpatient (CLI) | payer MEDICARE, SELFPAY ==
--- NOTE | 2023-03-27 10:40 | BI_ITS ---
MAMMOGRAPHY - BILATERAL SCREENING REASON FOR EXAM: Female, 78 years old. Routine annual screening examination. PERTINENT HISTORY: Sister with breast cancer. Prior left excisional breast biopsy. TECHNIQUE: Digital bilateral breast sofia (3D mammographic acquisition) in the CC and MLO projections. 2-D mediolateral oblique (MLO) and craniocaudad (CC) views of both breasts were obtained. CAD: Full Field Digital Mammography with Computer Added Detection was performed. COMPARISON: Comparison is made with prior study dated January 18, 2022 and January 16, 2021. FINDINGS: Breast Composition: The breasts are almost entirely fatty. There are no dominant masses or suspicious calcifications. Stable small benign-appearing bilateral axillary No other significant abnormalities are identified. There has been no significant change since the prior study. BI/SCRN MAMM (CAD)W/SOFIA BILAT IMPRESSION: Stable bilateral screening mammogram. Yearly follow-up mammogram recommended. (A) ASSESSMENT CATEGORY: BIRADS Category 2: Benign. A letter regarding these results will be sent to the patient by the facility within 30 days. Approximately 10% of breast cancers are not detected by mammography. A normal mammogram should not delay biopsy of a clinically suspicious abnormality. [id number] Electronically Signed: Tushar Fleming MD at 13:13 EST ,
== END | disposition home or self-care (01) ==
LOC: OPBI 10:39
PROVIDERS: PCP Physician Assistant; Referring Provider Physician Assistant; Visit Provider Physician Assistant
DX: Z12.31 Encounter for screening mammogram for malignant neoplasm of breast (principal); Z80.3 Family history of malignant neoplasm of breast
CPT/HCPCS: 77063; 77067

== ENCOUNTER 2023-08-14 10:20 | Emergency (ER) | payer MEDICARE, SELFPAY ==
[2023-08-14 10:21] VITALS: BP 157/79; PULSE 66; RESP 14; TEMP 36.6; O2SAT 97; BMI 28.5
--- NOTE | 2023-08-14 10:38 | ED.VIS.LOWEX ---
HPI History of Present Illness Chief Complaint: Lower Extremity Injury Narrative Narrative: 78-year-old female presenting with right hip pain. Patient states she fractured her femur approximately 8 months ago. She has a reid in her femur. She complains of pain in her right hip and right buttock today. Denies back pain. Denies injury. Denies weakness. Denies fever. She states she has been moving and doing heavy lifting. [facility] Medical History Back pain Chest pain Easy bruising Gastric reflux GERD (gastroesophageal reflux disease) History of edema History of pain when walking History of stress test History of ulceration Non-cardiac chest pain Non-smoker Osteoarthritis Psoriatic arthritis Restless legs Restless legs syndrome (RLS) Shortness of breath on exertion Wears glasses Home Medications fluorometholone 0.1 % eye drops,suspension 1 drp EACH EYE DAILY 05/09/16 [History Last Taken 05/09/16 08:00] folic acid 1 mg tablet 2 mg PO DAILY 05/09/16 [History Last Taken Unknown] methotrexate sodium 2.5 mg tablet 20 mg PO TH 05/09/16 [History Last Taken Unknown] omeprazole 40 mg capsule,delayed release 40 mg PO DAILY 05/09/16 [History Last Taken 02/03/21 05:20] vitamin B complex 1 ea PO DAILY 05/09/16 [History Last Taken 05/08/16] hydrocodone-acetaminophen 5-325mg 5mg-325mg 1 tab PO Q6H PRN PRN Pain #8 tabs 02/06/17 [Rx Last Taken Unknown] secukinumab 150 mg/mL subcutaneous pen injector 150 mg subcut Q4W 12/02/20 [History Last Taken Unknown] sucralfate 1 gram tablet See Rx Instructions .Route .COMPLEX #180 tabs 04/25/21 [Rx Last Taken Unknown] atorvastatin 20 mg tablet 20 mg PO DAILY 12/12/22 [History Last Taken Unknown] ibandronate 150 mg tablet 150 mg PO DAILY 12/12/22 [History Last Taken Unknown] hydrocodone-acetaminophen 5-325mg 5mg-325mg 1 tab PO Q6H PRN PRN Pain 4 days #15 TABLETS 01/04/23 [Rx Last Taken Unknown] cyclosporine 0.1 %-chondroitin sulfate A sodium 0.25 % eye drops (Cyclosporine in Klarity) 1 drp ophthalmic (eye) DAILY 08/14/23 [History Last Taken Unknown] Allergy/AdvReac Type Severity Reaction Status Date / Time etanercept [From Enbrel] Allergy Severe Swelling Verified 08/14/23 10:27 metronidazole Allergy Severe Hives Verified 08/14/23 10:27 celecoxib [From Celebrex] AdvReac Mild gastric Verified 08/14/23 10:27 ulcer Family History Father Heart disease Sister Breast cancer Diabetes Surgical History H/O: hysterectomy History of cholecystectomy Hx of breast biopsy Hx of colonoscopy Hx of foot surgery S/P cataract extraction Status post total knee replacement, left Status post total knee replacement, right Social History housing: house Smoking Status: Never smoker second hand exposure: No alcohol intake: never substance use type: does not use caffeine: Yes what type of physical activity do you participate in: none frequency: does not exercise seatbelt use: always ROS ROS ED Constitutional Constitutional ED: Denies fever(s) Eyes Eyes: Denies change in vision ENT ENT ED: Denies rhinorrhea or sore throat Cardiovascular Cardiovascular: Denies chest pain or palpitations Respiratory/Chest Respiratory/Chest: Denies cough or dyspnea Gastrointestinal Gastrointestinal: Denies abdominal pain, diarrhea, nausea or vomiting Genitourinary Genitourinary ED: Denies dysuria Musculoskeletal Musculoskeletal: Reports other Details: right hip pain Integumentary Denies rash Neurologic Neurologic: Denies headache(s) Psychiatric Psychiatric: Denies suicidal thoughts EXAM Physical Exam Const Vital Signs: 08/14/23 10:21 08/14/23 12:21 08/14/23 14:00 Temperature 97.9 F Temperature Source Temporal Pulse Rate 66 64 58 L Respiratory Rate 14 16 19 H Blood Pressure 157/79 H 138/68 H 132/68 H Blood Pressure Mean 105 91 89 Pulse Ox 97 94 98 Oxygen Delivery Method Room Air Room Air Room Air Positive well nourished and well developed General Appearance ED: well developed HEENT Reports normocephalic and head/scalp atraumatic Eyes PERRL and EOMs intact bilaterally Neck supple General: Negative for tenderness Chest Wall inspection of chest normal Resp normal respiratory effort and clear to auscultation bilaterally Cardio regular rate and regular rhythm GI non-tender and non-distended Palpation: soft; Negative for guarding or rebound tenderness present no CVA tenderness Back/Spine General Back: other Right lumbar paraspinal muscle tenderness Lumbar Spine / Lower Back: straight leg raise positive right; Negative for lumbar spinal tenderness Extremity normal to inspection Extremity Narrative: right lateral hip tenderness, no calf tenderness. Normal pulses. Neuro oriented x3 Sensorium / Orientation: alert Motor Exam: strength 5/5 throughout Psych mental status grossly normal Skin no wounds MDM MDM MDM Narrative Medical decision making narrative: Differential diagnosis includes muscle strain, sciatica, less likely fracture. Patient on morphine, Zofran IV. X-ray right hip, femur, pelvis, lumbar spine obtained read by myself and radiology, show no acute process. Patient is feeling improved after pain medication. She is able to ambulate in the emergency department. She will follow-up with orthopedics. Advised to return to the ED for worsening complaints. History & Record Review Discussion w/independent historian: Patient Radiography Diagnostic Testing: Clinical Impression(s) from Imaging Studies Femur X-Ray 08/14/23 10:48 IMPRESSION: Status post ORIF of a proximal diaphyseal femoral fracture with good alignment. There is evidence of healing. No definite acute fracture is seen at this time. The hardware is intact. Electronically Signed: Tushar Fleming MD at 12:02 EDT , Lumbar Spine X-Ray 08/14/23 10:48 IMPRESSION: Degenerative changes of the spine, as detailed above. Electronically Signed: Tushar Fleming MD at 12:03 EDT , Pelvis X-Ray 08/14/23 10:48 IMPRESSION: Status post intramedullary reid fixation and compression screw repair and the proximal femur. No acute abnormality is seen. Electronically Signed: Tushar Fleming MD at 12:05 EDT , Discharge Plan Triage Chief Complaint: Lower Extremity Injury ED Provider: Latricia Benoit Dx/Rx/DC Orders Clinical Impression: Acute pain of right hip Prescriptions: No Action secukinumab 150 mg/mL pen injector 150 mg subcut Q4W omeprazole 40 MG capsule 40 mg PO DAILY Patient Comments: GERD methotrexate sodium 2.5 MG tablet 20 mg PO Patient Comments: 20 MG TOTAL ON THURSDAYS BUT SEPERATES 10 MG IN AM 10MG IN PM, PSORIASIS CAUSED BY ARTHRITIS folic acid 1 MG tablet 2 mg PO DAILY Patient Comments: SUPPLEMENT vitamin B complex 1 EACH capsule 1 ea PO DAILY Patient Comments: SUPPLEMENT fluorometholone 5 ML drops,suspension 1 drp EACH EYE DAILY Patient Comments: DRY EYES hydrocodone-acetaminophen 1 TABLET tablet 1 tab PO Q6H PRN PRN (Reason: Pain) Qty: 8 0RF hydrocodone-acetaminophen 5-325 mg tablet 1 tab PO Q6H PRN PRN (Reason: Pain) 4 Days Qty: 15 0RF atorvastatin 20 mg tablet 20 mg PO DAILY ibandronate 150 mg tablet 150 mg PO DAILY Cyclosporine in Klarity 0.1-0.25 % drops 1 drp ophthalmic (eye) DAILY sucralfate 1 gram tablet See Rx Instructions .ROUTE .COMPLEX Qty: 180 3RF Dose Instruction: take 1 tablet by mouth four times a day Rx Instructions: take 1 tablet by mouth four times a day Primary Care Provider: Tian Hernandez Referrals: Tian Hernandez PA [Primary Care Provider] - Disposition Disposition: Home, Self Care
--- NOTE | 2023-08-14 10:48 | RAD_ITS ---
STUDY: X-RAY - RIGHT FEMUR REASON FOR STUDY: Female, 78 years old. Right hip pain. TECHNIQUE: 4 view(s) of the femur. COMPARISON: Comparison is made with prior examination dated January 04, 2023. FINDINGS: The patient is status post intramedullary reid fixation of a proximal femoral diaphyseal fracture. There is healing of the fracture with bony callus. No definite acute fracture is seen at this time. Normal visualized soft tissue structure. RAD/Femur Min 2 Views IMPRESSION: Status post ORIF of a proximal diaphyseal femoral fracture with good alignment. There is evidence of healing. No definite acute fracture is seen at this time. The hardware is intact. Electronically Signed: Tushar Fleming MD at 12:02 EDT ,
--- NOTE | 2023-08-14 10:48 | RAD_ITS ---
STUDY: X-RAY - LUMBAR SPINE REASON FOR EXAM: Female, 78 years old. Pain TECHNIQUE: 3 view(s) of the lumbar spine were obtained. COMPARISON: None FINDINGS: Normal lumbar lordosis. There is a mild dextroscoliosis of the lumbar spine. Minimal anterior listhesis of L4 on L5. There is multilevel endplate spondylosis of the lumbar vertebrae. There is multi-level degenerative disc disease with multi-level disc space narrowing. There is a mild degree of atherosclerotic calcification of the abdominal aorta without a demonstrated aneurysm. RAD/Lumbar Spine 2 or 3 Views IMPRESSION: Degenerative changes of the spine, as detailed above. Electronically Signed: Tushar Fleming MD at 12:03 EDT ,
--- NOTE | 2023-08-14 10:48 | RAD_ITS ---
STUDY: X-RAY - PELVIS REASON FOR EXAM: Female, 78 years old. Pain TECHNIQUE: One view of the pelvis was obtained. COMPARISON: Comparison is made with prior study January 04, 2023. FINDINGS: There is a non-specific bowel gas pattern. Normal visualized soft tissue structures. Normal bilateral iliac wings, sacroiliac joints and visualized sacrum. Normal visualized bilateral superior and inferior pubic rami. There is narrowing with sclerosis of the pubic symphysis. Normal ischial tuberosities. The patient is status post open reduction internal fixation of the proximal right hip. Normal visualized left femoral head. Normal left acetabulum. There is mild articular joint space narrowing of the left hip. RAD/Pelvis 1 or 2 Views IMPRESSION: Status post intramedullary reid fixation and compression screw repair and the proximal femur. No acute abnormality is seen. Electronically Signed: Tushar Fleming MD at 12:05 EDT ,
[2023-08-14] MEDS: Ondansetron 4 MG/2 ML Vial IV (11:27)
[2023-08-14] MEDS: Morphine 4 MG/ML Syringe IV (11:27)
[2023-08-14 12:21] VITALS: BP 138/68; PULSE 64; RESP 16; O2SAT 94
[2023-08-14 14:00] VITALS: BP 132/68; PULSE 58; RESP 19; O2SAT 98
[2023-08-14 14:39] VITALS: BP 127/67; PULSE 60; RESP 19; TEMP 36.4; O2SAT 99
== END 2023-08-14 14:56 | disposition home or self-care (01) ==
PROVIDERS: Emergency Provider Emergency Medicine; PCP Physician Assistant; Visit Provider Emergency Medicine
DX: M25.551 Pain in right hip (principal); Z79.899 Other long term (current) drug therapy
CPT/HCPCS: 72100; 72170; 73552; 96374; 96375; 99282; A4216; J2405

== ENCOUNTER 2023-10-02 12:30 | Outpatient (RCR) | payer MEDICARE, SELFPAY ==
--- NOTE | 2023-07-22 14:30 | HP.PTEVAL_ITS ---
Patient's Visit Information Visit Information Visit Information: DAMARIS ZAYAS is a 78 year old F referred to Physical Therapy by Darci Alejandro PA-C with a diagnosis of Hip Pain. Date of Evaluation: 07/22/23 Physical Therapist: Edith Morrison DPT Visit Plan Frequency: 2x /Week Duration: 4 Weeks Plan: 2x a week aquatic to focus on LE and core strength/stabilization 1x a week for balance and gait on land Subjective Subjective: Patient reports that she broke her right femur Dec 07 2022 and had surgery on the to put in a titanium reid and then flew home from [place] 2 days later. Then she had therapy at [facility] and graduated to water therapy at [facility] and then they discharged her July 01 and then she saw Flavia and he agreed that she needed more PT. Saw the training technician who measured and put in a heel lift and is making an orthotic to correct a LLD of an inch and that will be ready in a few weeks. Until then she has a lift in her shoes. Patient reports that she has had x-rays on her knees, hips and back. And they told her that she needs a pain stimulator for her back because the OA is to bad in her back. She reports that she has a stabbing pain in her sharon. She has pain in the femur that aches- she has cramps. Worst: 6/10 Best: 3/10 Eases: water therapy. She is very active with her family. The pain does not radiate past the knee. No N/T in the toes. Sleep: wakes her up and is painful when she rolls over. PMHx/Meds: see list in chart. Goal: end goal is walk smoother and with better speed. Objective Objective: Posture: forward head, rounded shoulders- Gait: step to gait pattern- no AD- decreased david HR/TR: able without UE A- decreased TR on right right increased discomfort Strength: Knee Extension: Left: 40 Right: 39 Flexion Left: 22 Right: 30 Hip: Flexion: Left: 19 Right: 20 Abd: Left: 25 Right: 25 Add: Right: 22 Left: 23, Core: poor SLS: weight shift to right but unable to SLS Flex: HS: severe, Gastroc: severe ROM: Lumbar: all limited by 50%, Hip: Flexion: 90 degrees, extn: neutral, IR/ER: neutral, abd: 30 degrees Balance/Special Test Scores Lower Extremity Functional Score: 20 Goals Goal 1:: Patient will report participation in home exercise program activities a minimum of 5 days per week, as adjunct to skilled physical therapy intervention in preparation for independent home management upon discharge. Goal Time Frame: 4-6 Weeks Goal 2:: Patient will ambulate >150 feet with a normalized gait pattern Goal Time Frame: 4-6 Weeks Goal 3:: Patient will SLS for 15 seconds on the right LE without loss of balance Goal Time Frame: 4-6 Weeks Goal 4:: Patient will report 80% improvement Goal Time Frame: 4-6 Weeks Rehabilitation Potential Physical Therapy Diagnosis: Patient presents with decreased ROM, LE and core strength/stabilization, proprioception, flex and muscular endurance leading to abnormal gait pattern Anticipated Interventions Patient/Client Instruction: Educate patient on: Benefits of Fitness Program Therapeutic Exercise to Include: Strength training, Endurance training, Balance training, Coordination, Agility training, Body mechanics, Postural training, Flexibilty training, Gait and locomotor training, Neuromotor development, In an aquatic setting, Passive ROM, Active ROM, Dynamic Lumbar Stabilization and Scapular Strength/Stabilization For the Purpose of:: To improve muscle performance and motor function Text: Thank you for the opportunity to evaluate your patient. For Medicare and Medicare HMO plans, please review the plan of care and approve it. It will need to be FAXED BACK to us at [phone] for Medicare purposes. For Medicare only, by signing this I certify the plan of care. Please let me know if there are questions or concerns regarding this plan of care. Physician Signat ure: Date:
--- NOTE | 2023-07-22 14:30 | HP.PTEVAL_ITS ---
Patient's Visit Information Visit Information Visit Information: DAMARIS ZAYAS is a 78 year old F referred to Physical Therapy by Darci Alejandro PA-C with a diagnosis of Hip Pain. Date of Evaluation: 07/22/23 Physical Therapist: Edith Morrison DPT Visit Plan Frequency: 2x /Week Duration: 4 Weeks Plan: 2x a week aquatic to focus on LE and core strength/stabilization 1x a week for balance and gait on land Subjective Subjective: Patient reports that she broke her right femur Dec 07 2022 and had surgery on the to put in a titanium reid and then flew home from [place] 2 days later. Then she had therapy at [facility] and graduated to water therapy at [facility] and then they discharged her July 01 and then she saw Flavia and he agreed that she needed more PT. Saw the patient relations representative who measured and put in a heel lift and is making an orthotic to correct a LLD of an inch and that will be ready in a few weeks. Until then she has a lift in her shoes. Patient reports that she has had x-rays on her knees, hips and back. And they told her that she needs a pain stimulator for her back because the OA is to bad in her back. She reports that she has a stabbing pain in her sharon. She has pain in the femur that aches- she has cramps. Worst: 6/10 Best: 3/10 Eases: water therapy. She is very active with her family. The pain does not radiate past the knee. No N/T in the toes. Sleep: wakes her up and is painful when she rolls over. PMHx/Meds: see list in chart. Goal: end goal is walk smoother and with better speed. Objective Objective: Posture: forward head, rounded shoulders- Gait: step to gait pattern- no AD- decreased david HR/TR: able without UE A- decreased TR on right right increased discomfort Strength: Knee Extension: Left: 40 Right: 39 Flexion Left: 22 Right: 30 Hip: Flexion: Left: 19 Right: 20 Abd: Left: 25 Right: 25 Add: Right: 22 Left: 23, Core: poor SLS: weight shift to right but unable to SLS Flex: HS: severe, Gastroc: severe ROM: Lumbar: all limited by 50%, Hip: Flexion: 90 degrees, extn: neutral, IR/ER: neutral, abd: 30 degrees Balance/Special Test Scores Lower Extremity Functional Score: 20 Goals Goal 1:: Patient will report participation in home exercise program activities a minimum of 5 days per week, as adjunct to skilled physical therapy intervention in preparation for independent home management upon discharge. Goal Time Frame: 4-6 Weeks Goal 2:: Patient will ambulate >150 feet with a normalized gait pattern Goal Time Frame: 4-6 Weeks Goal 3:: Patient will SLS for 15 seconds on the right LE without loss of balance Goal Time Frame: 4-6 Weeks Goal 4:: Patient will report 80% improvement Goal Time Frame: 4-6 Weeks Rehabilitation Potential Physical Therapy Diagnosis: Patient presents with decreased ROM, LE and core strength/stabilization, proprioception, flex and muscular endurance leading to abnormal gait pattern Anticipated Interventions Patient/Client Instruction: Educate patient on: Benefits of Fitness Program Therapeutic Exercise to Include: Strength training, Endurance training, Balance training, Coordination, Agility training, Body mechanics, Postural training, Flexibilty training, Gait and locomotor training, Neuromotor development, In an aquatic setting, Passive ROM, Active ROM, Dynamic Lumbar Stabilization and Scapular Strength/Stabilization For the Purpose of:: To improve muscle performance and motor function Text: Thank you for the opportunity to evaluate your patient. For Medicare and Medicare HMO plans, please review the plan of care and approve it. It will need to be FAXED BACK to us at [phone] for Medicare purposes. For Medicare only, by signing this I certify the plan of care. Please let me know if there are questions or concerns regarding this plan of care. Physician Signat ure: Date:
--- NOTE | 2023-08-26 13:58 | HP.PTREVAL_ITS ---
Re-Evaluation Intro: Darci Alejandro PA-C, It has been my pleasure to treat DAMARIS ZAYAS over the last 13 visits for Hip Pain. Please see the progress note below for an update on the physical therapy plan of care! Subjective Subjective: Other than when she had her set back she is back to doing her stuff. She is now able to cross her legs over. She feels that working toward a land program. She got her orthotics this morning. Objective Objective/Function: Posture: forward head, rounded shoulders- Gait: improved- improved step length slight Trendelenburg HR/TR: able without UE A- decreased TR on right right increased discomfort Strength: Knee Extension: Left: 45 Right: 45 Flexion Left: 26 Right: 35 Hip: Flexion: Left: 17 Right: 24 Abd: Left: 25 Right: 25 Add: Right: 22 Left: 23, Core: poor SLS: 8 seconds Flex: HS: severe, Gastroc: severe ROM: WFL Plan Plan Plan: 08/26/23: 1x a week aquatic to focus on LE and core strength/stabilization progression 2x a week for balance and gait on land IE: 2x a week aquatic to focus on LE and core strength/stabilization 1x a week for balance and gait on land Balance/Gait/Functional tests Balance/Special Test Scores Lower Extremity Functional Score: 45 Goals Goals Goal 1:: Patient will report participation in home exercise program activities a minimum of 5 days per week, as adjunct to skilled physical therapy intervention in preparation for independent home management upon discharge. Goal Time Frame: 4-6 Weeks Goal Progress: Progressing Goal 2:: Patient will ambulate >150 feet with a normalized gait pattern Goal Time Frame: 4-6 Weeks Goal Progress: Progressing Goal 3:: Patient will SLS for 15 seconds on the right LE without loss of balance Goal Time Frame: 4-6 Weeks Goal Progress: Progressing Goal 4:: Patient will report 80% improvement Goal Time Frame: 4-6 Weeks Goal Progress: Goal Met Anticipated Interventions Anticipated Interventions Patient/Client Instruction: Educate patient on: Benefits of Fitness Program Therapeutic Exercise to Include: Strength training, Endurance training, Balance training, Coordination, Agility training, Body mechanics, Postural training, Flexibilty training, Gait and locomotor training, Neuromotor development, In an aquatic setting, Passive ROM, Active ROM, Dynamic Lumbar Stabilization and Scapular Strength/Stabilization For the Purpose of:: To improve muscle performance and motor function Re-Evaluation Ending Re-evaluation ending: Please do not hesitate to contact me at [phone] by phone or Fax: if you have questions or concerns regarding this new plan of care! Sincerely, QUIQUE BurnsT
--- NOTE | 2023-10-02 12:45 | HP.PTDCSUM_ITS ---
Discharge Summary D/C summary: It has been my pleasure to treat DAMARIS ZAYAS referred by Darci Alejandro PA-C, with the diagnosis of Hip Pain for a total of 26 visit(s). Discharge Date: Please see the following information for a summary of their discharge status. Subjective Subjective: She is painful due to moving- she was not having pain prior. She was released from the surgeon- She feels that she is 92%. Pain RLE: Pain Intensity (Out of 10): 3 R BUTTOCK: Pain Intensity (Out of 10): 3 Overall Improvement % Improvement: 92 Objective Objective/Function: Posture: fair throughout Gait: slightly antalgic- decreased stance on the right LE Stairs: asc/desc 8 recip with 1 HR HR/TR: able without UE A SLS: 5 seconds ROM: WFL Strength: Core: fair plus, Hip: Flexion: 4/5, Abd: 4+/5, Add: 4+/5, Knee: 5/5, Ankle: 5/5 Flex: HS: moderate, Gastroc: moderate Goals Goal 1:: Patient will report participation in home exercise program activities a minimum of 5 days per week, as adjunct to skilled physical therapy intervention in preparation for independent home management upon discharge. Goal Progress: Goal Met Goal 2:: Patient will ambulate >150 feet with a normalized gait pattern Goal Progress: Progressing Goal 3:: Patient will SLS for 15 seconds on the right LE without loss of balance Goal Progress: Progressing Goal 4:: Patient will report 80% improvement Goal Progress: Goal Met Plan Plan: 10/02/23: Discharge to home exercise program at the [facility] 08/26/23: 1x a week aquatic to focus on LE and core strength/stabilization progression 2x a week for balance and gait on land IE: 2x a week aquatic to focus on LE and core strength/stabilization 1x a week for balance and gait on land D/C Information d/c sentence: If there are questions or concerns regarding this patient's physical therapy, please feel free to call me at [phone]. Thank you for the referral of this patient. Sincerely, Edith Morrison, DPT Balance/Gait/Functional tests Balance/Special Test Scores Lower Extremity Functional Score: 49 Improvement % Improvement: 92
== END 2023-10-02 19:00 | disposition home or self-care (01) ==
LOC: PT 12:30
PROVIDERS: PCP Physician Assistant; Referring Provider Physician Assistant; Visit Provider Physician Assistant
DX: S72.351D Displaced comminuted fracture of shaft of right femur, subsequent encounter for closed fracture with routine healing (principal); Z96.651 Presence of right artificial knee joint
CPT/HCPCS: 97110; 97113; 97162; 97530

== ENCOUNTER → 2024-03-31 | Outpatient (CLI) | payer MEDICARE, SELFPAY ==
--- NOTE | 2024-03-31 09:26 | BI_ITS ---
MAMMOGRAPHY - BILATERAL SCREENING REASON FOR EXAM: Female, 79 years old. Routine annual screening examination. PERTINENT HISTORY: Sister with breast cancer. Prior left excisional breast biopsy. TECHNIQUE: Digital bilateral breast sofia (3D mammographic acquisition) in the CC and MLO projections. 2-D mediolateral oblique (MLO) and craniocaudad (CC) views of both breasts were obtained. CAD: Full Field Digital Mammography with Computer Added Detection was performed. COMPARISON: Comparison is made with prior study dated March 27, 2023 and January 18, 2022. FINDINGS: Breast Composition: The breasts are almost entirely fatty. There are no dominant masses or suspicious calcifications. No other significant abnormalities are identified. There has been no significant change since the prior study. BI/SCRN MAMM (CAD)W/SOFIA BILAT IMPRESSION: Stable bilateral screening mammogram. Yearly follow-up mammogram recommended. (A) ASSESSMENT CATEGORY: BIRADS Category 1: Negative. A letter regarding these results will be sent to the patient by the facility within 30 days. Approximately 10% of breast cancers are not detected by mammography. A normal mammogram should not delay biopsy of a clinically suspicious abnormality. [id number] Electronically Signed: Tushar Fleming MD at 10:01 EST ,
== END | disposition home or self-care (01) ==
LOC: OPBI 09:25
PROVIDERS: PCP Physician Assistant; Referring Provider Clinical Nurse Specialist Adult Health; Visit Provider Clinical Nurse Specialist Adult Health
DX: Z12.31 Encounter for screening mammogram for malignant neoplasm of breast (principal)
CPT/HCPCS: 77063; 77067

== ENCOUNTER 2024-08-09 11:34 | Emergency (ER) | payer MEDICARE, SELFPAY ==
[2024-08-09 11:35] VITALS: BP 154/75; PULSE 62; RESP 18; TEMP 36.6; O2SAT 99; BMI 28.2
--- NOTE | 2024-08-09 11:58 | EDS_ITS ---
HPI History of Present Illness Chief Complaint: Fall Informant: patient Narrative Narrative: Presents to ED for evaluation mechanical fall occurring 2 days ago. She states coming off the flower bed misstep falling down on her back. Pain in the right rib. Reported by nursing bilateral elbow pain however she reports no left elbow pain she has right rib pain with movement of her right upper extremity. She has chronic rotator cuff issues of her shoulder. Nothing worsening. No head injuries. No anticoagulants. Took half a tab of her hydrocodone at 4 AM as she takes it for osteoarthritis. No other complaints. [facility] Medical History Wears glasses Easy bruising Restless legs Back pain History of ulceration Gastric reflux Non-smoker Shortness of breath on exertion History of pain when walking History of edema History of stress test Psoriatic arthritis Non-cardiac chest pain Restless legs syndrome (RLS) GERD (gastroesophageal reflux disease) Osteoarthritis Chest pain Home Medications ?Medication ?Instructions ?Recorded ?Last Taken ?Type fluorometholone 0.1 % eye 1 drp EACH EYE DAILY 7 05/09/16 08:00 History drops,suspension folic acid 1 mg tablet 2 mg PO DAILY 05/09/16 Unkno wn History methotrexate sodium 2.5 mg tablet 20 mg PO TH 05/09/16 Unknown History omeprazole 40 mg capsule,delayed 40 mg PO DAILY 02/03/21 05:20 History release vitamin B complex 1 ea PO DAILY 05/09/1605/08 History hydrocodone-acetaminophen 5-325mg 1 tab PO Q6H PRN PRN Pain #8 tabs 02/06/17 Unknown Rx 5mg-325mg secukinumab 150 mg/mL subcutaneous 150 mg subcut Q4W 0 12/02/20 Unknown History pen injector sucralfate 1 gram tablet See Rx Instructions .Route 0 04/25/21 Unknown Rx .COMPLEX #180 tabs atorvastatin 20 mg tablet 20 mg PO DAILY 12/12/22 Unkn own History ibandronate 150 mg tablet 150 mg PO DAILY 12/12/22 Unk nown History hydrocodone-acetaminophen 5-325mg 1 tab PO Q6H PRN PRN Pain 4 days 01/04/23 Unknown Rx 5mg-325mg #15 TABLETS cyclosporine 0.1 %-chondroitin 1 drp ophthalmic (eye) DAILY 08/14/23 Unknown History sulfate A sodium 0.25 % eye drops (Cyclosporine in [place]) Allergy/AdvReac Type Severity Reaction Status Date / Time etanercept (From Enbrel) Allergy Severe Swelling Verified 08/09/24 11:38 metronidazole Allergy Severe Hives Verified 08/09/24 11:38 celecoxib (From Celebrex) AdvReac Mild gastric Verified 08/09/24 11:38 ulcer Family History Father Heart disease Sister Breast cancer Diabetes Surgical History Hx of colonoscopy Hx of foot surgery Hx of breast biopsy S/P cataract extraction History of cholecystectomy Status post total knee replacement, right Status post total knee replacement, left H/O: hysterectomy Social History housing: house Smoking Status: Never smoker second hand exposure: No alcohol intake: never substance use type: does not use caffeine: Yes what type of physical activity do you participate in: none frequency: does not exercise seatbelt use: always ROS ROS ED Constitutional Constitutional ED: Denies chills, fever(s) or sweats ENT ENT ED: Denies sore throat Cardiovascular Cardiovascular: Denies chest pain, leg edema, palpitations or racing heartbeat Respiratory/Chest Respiratory/Chest: Denies cough, dyspnea or dyspnea on exertion Gastrointestinal Gastrointestinal: Denies abdominal pain, diarrhea, nausea or vomiting Genitourinary Genitourinary ED: Denies dysuria, hematuria or urinary frequency Musculoskeletal Musculoskeletal: Reports other Details: Right rib pain ; Denies back pain or neck pain Integumentary Denies rash or wounds Neurologic Neurologic: Denies headache(s), paresthesias or weakness EXAM Physical Exam Const Vital Signs: 08/09/24 11:35 08/09/24 11:46 Temperature 97.8 F Temperature Source Oral Pulse Rate 62 Respiratory Rate 18 Respiratory Effort Normal Non-Labored Respiratory Depth Normal Respiratory Pattern Normal Blood Pressure 154/75 H Blood Pressure Mean 101 Pulse Ox 99 Oxygen Delivery Method Room Air Positive well nourished and well developed Constitutional Narrative: GCS 15. General Appearance ED: well developed and NAD HEENT Reports moist mucous membranes normocephalic and atraumatic Eyes General Eye ED: Yes normal appearance of both eyes Neck full ROM Chest Wall Chest Narrative: Tender palpation right lower lateral ribs. No crepitus. Chest: tenderness Resp normal respiratory effort and normal air movement Resp Narrative: Symmetric breath sounds. Effort and Inspection: symmetric chest movement; Negative for respiratory distress Cardio regular rate, regular rhythm and no murmurs Peripheral Pulses: pulses 2+ throughout GI normal to inspection, nondistended, normoactive bowel sounds and non-tender Palpation: Negative for guarding or rebound tenderness present Extremity normal to inspection Extremity Narrative: With movement of right arm patient pain in the ribs. No bony pain in the shoulder elbow or wrist. Left upper extremity: Full range of motion any pain. Lower extremities: Bilateral negative logroll. Soft compartments. General Extremety ED: Negative for edema or tenderness General Extremity: Negative for edema Neuro oriented x3 and no sensory deficits noted Sensorium / Orientation: awake and alert Skin no rashes or lesions noted and no wounds MDM MDM MDM Narrative Medical decision making narrative: Interventions / MDM: Differential diagnosis: Rib fractures, fall Diagnosis considered but do not suspect: Pneumothorax however CT negative. My EKG interpretation: N/A Imaging independently reviewed and interpreted by myself: CT chest: Minimal face right anterior rib fractures 4 and 6. No pneumothorax this is in discussion with radiology. External documents reviewed: N/A Test considered but not ordered:N/A ED course: Patient mechanical fall 2 days ago increasing right lower rib pain. There is no extremity injuries or pain. Status post [place] at home. I will order noncontrast CT chest for further ration. CT chest interpreted myself and discussed with radiology rib fractures 4 and 6 no pneumothorax. Incentive spirometer provided for the patient to use while awake. She has hydrocodone at home to use. She will follow-up with her PCP. All questions were answered. Re-evaluation: stable Disposition discussed with patient/family/significant other: Patient and spouse Case discussed with consulting clinician: N/A This note was generated with [employer] dictation software. It may contain incorrect words, spelling, and punctuation that were not noted in checking the note before signing. Radiography Diagnostic Testing: Clinical Impression(s) from Imaging Studies Chest CT 08/09/24 12:09 IMPRESSION: No acute findings in the thorax. Bibasilar atelectasis and scarring. Reading Location: [facility] Discharge Plan Triage Chief Complaint: Fall ED Provider: Girish Conteh Dx/Rx/DC Orders Clinical Impression: Multiple rib fractures, Fall Instructions: ED Rib Fracture Prescriptions: No Action secukinumab 150 mg/mL pen injector 150 mg subcut Q4W omeprazole 40 MG capsule 40 mg PO DAILY Patient Comments: GERD methotrexate sodium 2.5 MG tablet 20 mg PO Patient Comments: 20 MG TOTAL ON THURSDAYS BUT SEPERATES 10 MG IN AM 10MG IN PM, PSORIASIS CAUSED BY ARTHRITIS folic acid 1 MG tablet 2 mg PO DAILY Patient Comments: SUPPLEMENT vitamin B complex 1 EACH capsule 1 ea PO DAILY Patient Comments: SUPPLEMENT fluorometholone 5 ML drops,suspension 1 drp EACH EYE DAILY Patient Comments: DRY EYES hydrocodone-acetaminophen 1 TABLET tablet 1 tab PO Q6H PRN PRN (Reason: Pain) Qty: 8 0RF hydrocodone-acetaminophen 5-325 mg tablet 1 tab PO Q6H PRN PRN (Reason: Pain) 4 Days Qty: 15 0RF atorvastatin 20 mg tablet 20 mg PO DAILY ibandronate 150 mg tablet 150 mg PO DAILY Cyclosporine in [place] 0.1-0.25 % drops 1 drp ophthalmic (eye) DAILY sucralfate 1 gram tablet See Rx Instructions .ROUTE .COMPLEX Qty: 180 3RF Dose Instruction: take 1 tablet by mouth four times a day Rx Instructions: take 1 tablet by mouth four times a day Primary Care Provider: Yoko Tipton Referrals: Tian Hernandez PA [Non-Staff] - 1-2 Weeks Activity Restrictions/Additional Instructions: CT scan notes fracture of rib 4 and 6 right side. No pneumothorax. Continue your hydrocodone as needed for pain. Use incentive spirometer every 2 hours while awake. Follow-up with your doctor. Print Language: Uruguayan Disposition Disposition: Home, Self Care
--- NOTE | 2024-08-09 12:09 | CT_ITS ---
PROCEDURE: CHEST WITHOUT CONTRAST 08/09/2024 REASON FOR EXAM: RIB INJURY RIGHT TECHNIQUE: Chest CT without contrast. Coronal and Sagittal reconstruction series were provided. One or more dose reduction techniques were used (e.g., Automated exposure control, adjustment of the mA and/or kV according to patient size, use of iterative reconstruction technique COMPARISON: None FINDINGS: Hardware: None Lymph nodes: No suspicious adenopathy. Heart and Vasculature: Mild cardiomegaly. Minimal coronary artery calcifications. Atherosclerotic calcifications of the thoracic aorta. Thoracic aorta and pulmonary arteries have normal contours; noncontrast technique limits evaluation. Coronary Artery Calcifications: Present Lungs and Airways: Central airways are patent without endobronchial lesions. Patchy opacities in the lung bases, more prominent on the left, compatible with scarring and atelectasis. No focal consolidation. No pneumothorax. No pleural effusion. Upper Abdomen: Unremarkable imaged upper abdomen. Bones: No acute osseous abnormality. Degenerative changes of the thoracic spine. CT/Chest without Contrast IMPRESSION: No acute findings in the thorax. Bibasilar atelectasis and scarring. [facility]
[2024-08-09 13:35] VITALS: BP 130/68; PULSE 60; RESP 18; O2SAT 98
== END 2024-08-09 13:40 | disposition home or self-care (01) ==
PROVIDERS: Emergency Provider Emergency Medicine; PCP Clinical Nurse Specialist Adult Health; Visit Provider Emergency Medicine
DX: S22.41XA Multiple fractures of ribs, right side, initial encounter for closed fracture (principal); W01.0XXA Fall on same level from slipping, tripping and stumbling without subsequent striking against object, initial encounter
CPT/HCPCS: 71250; 99282

== ENCOUNTER 2024-08-11 11:12 | Observation (INO) | payer MEDICARE, SELFPAY ==
[2024-08-11] VITALS (12 sets, daily range): BP systolic 117–188; BP diastolic 59–90; PULSE 60–75; RESP 15–19; TEMP 36.6–37.1; O2SAT 94–98; BMI 28.1; BMI 28.3; BMI 27.4
--- NOTE | 2024-08-11 11:15 | ED.RN ---
dr. magana to [facility]
--- NOTE | 2024-08-11 11:22 | CT_ITS ---
PROCEDURE: STROKE CTA HEAD AND NECK W/CON 08/11/2024 REASON FOR EXAM: NEURO DEFICIT, ACUTE, STROKE SUSPECTED TECHNIQUE: CTA head and neck was performed with IV contrast. Multiplanar reformats as well as MIP and 3D reconstructions were generated. IV CONTRAST: Isovue 370 VOLUME: 100mL RADIATION DOSE SUMMARY: CTDlvol: 5.70+ 15.19+ 26.19 mGy DLP: 876.27 mGycm One or more dose reduction techniques were used (e.g., Automated exposure control, adjustment of the mA and/or kV according to patient size, use of iterative reconstruction technique). COMPARISON: CT of same date. FINDINGS: CTA NECK: Aortic Arch: Nonobstructing atherosclerosis.. Brachiocephalic and subclavians: Nonobstructing atherosclerosis. RIGHT Carotid: Right CCA: Trace to mild nonobstructing atherosclerosis proximally and in the bulb. Right ICA: Patent. Right ECA: Patent. LEFT Carotid: Left CCA: Mild stenosis proximally, less than 25%. Left ICA: Patent. Left ECA: Patent. Vertebrals: Slight LEFT dominance. Arise from the subclavians. Both vertebrals form the basilar. RIGHT Vertebral: Patent with mild roughly 25% stenosis along the distal V4 segment. LEFT Vertebral: Patent. CTA HEAD: Limitation related to venous contamination. Anterior circulation: Trace to mild nonobstructing atherosclerosis in the carotid siphons. Diminutive RIGHT A1 segment, normal variant. Posterior circulation: Patent. LEFT AICA nonvisualized. 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 Mild dilatation of the basilar tip to 7 x 4 mm, possible infundibulum. Venous structures: Filling defects in the superior sagittal sinus are mostly ovoid/rounded. Otherwise grossly unremarkable within limits of nondedicated technique. Other: Slight asymmetric soft tissue prominence and hyperenhancement of the RIGHT lingual tonsil.. Mildly prominent but technically nonenlarged RIGHT parapharyngeal node. Mild mosaic attenuation in the lung apices may be related to expiratory phase of imaging given the configuration of the trachea. CT/STROKE CTA Head AND Neck W/Con IMPRESSION: 1. No high-grade stenosis or large vessel occlusion identified. 2. Filling defects in the superior sagittal sinus are mostly rounded and may re flect prominent arachnoid granulations rather than nonobstructing dural venous sinus thrombus. Consider correlation with laborato ry evaluation such as D-dimer and recommend attention on below recommended follow-up. 3. 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 Recommend neurosurgic al/neuro IR consultation. Additional dilatation of the basilar tip to 7 x 4 mm, possible infundibulum. Clinical follow-up [place] mmended. 4. Slight asymmetric soft tissue prominence and hyperenhancement of the RIGHT l ingual tonsil with a mildly asymmetrically prominent but technically nonenlarged RIGHT parapharyngeal node. Although thes e findings could be reactive, recommend direct visualization as early neoplasm cannot be excluded by imaging. 5. Additional description as above. Reading Location: [facility]
--- NOTE | 2024-08-11 11:22 | CT_ITS ---
PROCEDURE: STROKE BRAIN/HEAD WITHOUT CONT (CTBR.ST), 08/11/2024 REASON FOR EXAM: NEURO DEFICIT, ACUTE, STROKE SUSPECTED COMPARISON: None TECHNIQUE: CT head was performed without IV contrast. Multiplanar reformats were generated. RADIATION DOSE SUMMARY: CTDlvol: 47.06 mGy DLP: 819.74 mGycm One or more dose reduction techniques were used (e.g., Automated exposure control, adjustment of the mA and/or kV according to patient size, use of iterative reconstruction technique). FINDINGS: Cerebrum: Unremarkable. Cerebellum/brainstem: Unremarkable. Note slight limitation due to beam hardening artifact. Ventricles/extra-axial spaces: Unremarkable. Paranasal sinuses/mastoid air cells: Mild mucosal thickening in the inferior maxillary sinuses.. Scalp/calvarium: Unremarkable. Other: Intracranial atherosclerosis. CT/STROKE Brain/Head without Cont IMPRESSION: 1. No visible acute intracranial findings. If there is persistent concern for a n acute intracranial process, recommend MRI. 2. Mild maxillary paranasal sinus disease. 3. Additional description as above. Red Alert: #1 above The critical information above was relayed directly by me by telephone to Tai Conteh on 08/11/2024 at 9:48 am with readback verification. Reading Location: [id number]
--- NOTE | 2024-08-11 11:22 | EKG12_ITS ---
Test Reason : POS STROKE Blood Pressure : */* mmHG Vent. Rate : 56 BPM Atrial Rate : 56 BPM P-R Int : 184 ms QRS Dur : 98 ms QT Int : 430 ms P-R-T Axes : 7 -23 34 degrees QTcB Int : 414 ms Sinus bradycardia Moderate voltage criteria for LVH, may be normal variant ( R in aVL , [place] product ) Nonspecific ST abnormality Abnormal ECG Confirmed by JOAO CHADWICK, YIFAN ([id number]), department editor ARON PARSONS ([id number]) on 08/12/2024 1:30:33 PM Referred By: Confirmed By: YIFAN SHEPHERD MD
--- NOTE | 2024-08-11 11:33 | ED.VIS.STROK ---
HPI History of Present Illness Chief Complaint: Neuro S/Sx Informant: patient and family Narrative Narrative: Patient here with daughter for transient speech issues. 10 AM daughter arrived to the house she had trouble getting words out. She was not making sense. Symptoms resolved by 1030. Last normal on the phone at 9:30 AM with daughter called patient felt fine waking up at 7 AM. No headaches. Reporting to similar symptoms in the past was told if she had something again to go right to the ED. Currently resolved symptoms. States only current dizziness with mild indigestion symptoms. Denies any hemiparesis. She does not take any blood thinners. Of note seen couple days ago by myself for fall right rib fracture. She has been on chronic hydrocodone for arthritis. Prior similar symptoms: Yes PFSH PFS Medical History (Updated 08/11/24 @ 14:08 by Amita Barragan) Osteoporosis High blood cholesterol Hypertension Wears glasses Easy bruising Restless legs Back pain History of ulceration Gastric reflux Non-smoker Shortness of breath on exertion History of pain when walking History of edema History of stress test Psoriatic arthritis Non-cardiac chest pain Restless legs syndrome (RLS) GERD (gastroesophageal reflux disease) Osteoarthritis Chest pain Home Medications ?Medication ?Instructions ?Recorded ?Last Taken ?Type methotrexate sodium 2.5 mg tablet 20 mg PO TH 05/09/16 08/06/24 History omeprazole 40 mg capsule,delayed 40 mg PO BID 05/09/16 08/11/24 History release vitamin B complex 1 ea PO DAILY 05/09/16 05/08/16 History atorvastatin 20 mg tablet 20 mg PO DAILY 12/12/22 Unknown History cyclosporine 0.1 %-chondroitin 1 drp ophthalmic (eye) DAILY 08/14/23 08/11/24 History sulfate A sodium 0.25 % eye drops (Cyclosporine in [place]) losartan 50 mg tablet 50 mg PO DAILY 08/09/24 08/11/24 History aspirin 81 mg tablet,delayed 81 mg PO DAILY 08/11/24 08/11/24 History release (Adult Aspirin Regimen) biotin 5,000 mcg sublingual tablet 5,000 mcg sublingual DAILY 08/11/24 08/11/24 History cholecalciferol (vitamin D3) 125 125 mcg PO DAILY 08/11/24 08/11/24 History mcg (5,000 unit) tablet (Vitamin D3) denosumab 60 mg/mL subcutaneous 60 mg subcut .COMPLEX 08/11/24 04/17/24 History syringe (Prolia) fluorometholone 0.1 % eye 1 drp ophthalmic (eye) BID 08/11/24 08/11/24 History drops,suspension folic acid 1 mg tablet 1 mg PO DAILY 08/11/24 08/11/24 History hydrocodone-acetaminophen 5-325mg 1 tab PO Q6H PRN Pain 08/11/24 08/10/24 History 5mg-325mg ketoconazole 2 % topical cream 1 applic topical DAILY 08/11/24 Unknown History magnesium 200 mg tablet 200 mg PO DAILY 08/11/24 08/11/24 History triamcinolone acetonide 0.1 % 1 applic topical BID 08/11/24 Unknown History topical cream Allergy/AdvReac Type Severity Reaction Status Date / Time etanercept (From Enbrel) Allergy Severe Swelling Verified 08/11/24 11:16 metronidazole Allergy Severe Hives Verified 08/11/24 11:16 celecoxib (From Celebrex) AdvReac Mild gastric Verified 08/11/24 11:16 ulcer Family History Father Heart disease Sister Breast cancer Diabetes Surgical History Hx of colonoscopy Hx of foot surgery Hx of breast biopsy S/P cataract extraction History of cholecystectomy Status post total knee replacement, right Status post total knee replacement, left H/O: hysterectomy Social History housing: house Smoking Status: Never smoker second hand exposure: No alcohol intake: never substance use type: does not use caffeine: Yes what type of physical activity do you participate in: none frequency: does not exercise seatbelt use: always ROS ROS ED Constitutional Constitutional ED: Denies chills, fever(s) or sweats ENT ENT ED: Denies sore throat Cardiovascular Cardiovascular: Denies chest pain, leg edema, palpitations or racing heartbeat Respiratory/Chest Respiratory/Chest: Denies cough, dyspnea or dyspnea on exertion Gastrointestinal Gastrointestinal: Denies abdominal pain, diarrhea, nausea or vomiting Genitourinary Genitourinary ED: Denies dysuria, hematuria or urinary frequency Musculoskeletal Musculoskeletal: Denies back pain, extremity pain or neck pain Integumentary Denies rash or wounds Neurologic Neurologic: Reports other Details: Dysarthria, word salad ; Denies headache(s), paresthesias or weakness EXAM Physical Exam Const Vital Signs: 08/11/24 11:16 08/11/24 11:52 08/11/24 11:53 Temperature 98.6 F Temperature Source Oral Pulse Rate 62 61 Respiratory Rate 18 19 H Blood Pressure 188/90 H 168/76 H Blood Pressure Mean 122 106 Pulse Ox 98 97 98 Oxygen Delivery Method Room Air Room Air Room Air 08/11/24 12:22 08/11/24 12:30 08/11/24 13:00 Temperature Temperature Source Pulse Rate 60 61 60 Respiratory Rate 18 15 17 Blood Pressure 151/79 H 157/67 H 167/89 H Blood Pressure Mean 103 97 115 Pulse Ox 98 98 98 Oxygen Delivery Method Room Air Room Air Room Air 08/11/24 13:30 Temperature Temperature Source Pulse Rate 60 Respiratory Rate 18 Blood Pressure 174/76 H Blood Pressure Mean 108 Pulse Ox 98 Oxygen Delivery Method Room Air Positive well nourished and well developed General Appearance ED: well developed and NAD HEENT Reports moist mucous membranes normocephalic and atraumatic Eyes General Eye ED: Yes normal appearance of both eyes Neck full ROM Chest Wall Chest Narrative: Tender palpation right lower ribs anteriorly Chest: tenderness Resp normal respiratory effort and normal air movement Effort and Inspection: symmetric chest movement; Negative for respiratory distress Cardio regular rate, regular rhythm and no murmurs Peripheral Pulses: pulses 2+ throughout GI normal to inspection, nondistended, normoactive bowel sounds and non-tender Palpation: Negative for guarding or rebound tenderness present Extremity normal to inspection General Extremety ED: Negative for edema or tenderness General Extremity: Negative for edema Neuro oriented x3 and no sensory deficits noted Sensorium / Orientation: awake and alert Skin no rashes or lesions noted and no wounds MDM MDM MDM Narrative Medical decision making narrative: Interventions / MDM: Differential diagnosis: TIA, expressive aphasia, cerebral aneurysm, recent right rib fractures Diagnosis considered but do not suspect: Intracranial hemorrhage however CT negative. My EKG interpretation: Sinus rhythm with 56, no ST changes. Imaging independently reviewed and interpreted by myself: CT brain: Discussed with radiologist no acute process. CT angiogram head and neck: 6 x 4 x 4 mm anterior communicating saccular aneurysm. Filling defect superior sagittal sinus may reflect prominent arachnoid granulations versus nonobstructing dural venous sinus thrombus. Asymmetric swelling right lingual tonsil. External documents reviewed: ED visit from 2 days ago right rib fractures 4 and 6. Test considered but not ordered:N/A ED course: Patient transient stroke symptoms with expressive dysphagia word salad is resolved. Onset of time an hour ago. Stroke team initiated. CT head CT angiogram ordered. Not likely candidate for TNK as symptoms resolved. 1200: I spoke with teleneurologist Dr. Wiggins on the monitor. Agrees expressive aphasia resolved with TIA. He recommended full dose aspirin, increasing her statin. Admission for workup. Awaiting CT angiogram results. If abnormal will contact back. 1335: saccular aneurysm anterior communicating artery of 6 x 4 x 4 mm. No vessel occlusion. Slight soft tissue asymmetric findings of right lingual tonsil. Discussed with hospitalist Dr. Mayo, would like neurology input on this prior to admission for stroke workup here. I did respeak with Dr. Wiggins, he states the aneurysm in the outpatient referral to neurosurgery for evaluation. This was relayed to hospitalist. Will admit to PCU. Re-evaluation: stable Disposition discussed with patient/family/significant other: Patient Case discussed with consulting clinician: Telemetry neurologist, hospitalist This note was generated with [employer] dictation software. It may contain incorrect words, spelling, and punctuation that were not noted in checking the note before signing. Lab Data Attestation: I reviewed the patient's lab results. Labs: Laboratory Results - last 24 hr 08/11/24 08/11/24 08/11/24 11:36 11:59 12:21 WBC 7.6 RBC 4.36 Hgb 14.2 Hct 42.4 MCV 97.2 MCH 32.6 H MCHC 33.5 RDW Std Deviation 51.5 H RDW Coeff of Behzad 14.8 H Plt Count 352 MPV 10.2 Immature Gran % (Auto) 0.400 Neut % (Auto) 63.3 Lymph % (Auto) 28.0 [place] % (Auto) 5.0 Eos % (Auto) 2.8 Baso % (Auto) 0.5 Absolute Neuts (auto) 4.8 Absolute Lymphs (auto) 2.12 Nucleated RBC % 0 PT Cancelled 13.1 INR Cancelled 1.0 APTT Cancelled 27.6 Sodium 137 Potassium 4.5 Chloride 101 Carbon Dioxide 23.7 Anion Gap 12 BUN 13 Creatinine 0.77 Estim Creat Clear Calc 58.29 Est GFR (MDRD) Non-Af 80 BUN/Creatinine Ratio 16.9 Glucose 96 Calcium 9.8 Troponin T High Sens 9 Troponin T Hi Sens 2 Hr POC Glucose 82 08/11/24 13:35 WBC RBC Hgb Hct MCV MCH MCHC RDW Std Deviation RDW Coeff of Behzad Plt Count MPV Immature Gran % (Auto) Neut % (Auto) Lymph % (Auto) [place] % (Auto) Eos % (Auto) Baso % (Auto) Absolute Neuts (auto) Absolute Lymphs (auto) Nucleated RBC % PT INR APTT Sodium Potassium Chloride Carbon Dioxide Anion Gap BUN Creatinine Estim Creat Clear Calc Est GFR (MDRD) Non-Af BUN/Creatinine Ratio Glucose Calcium Troponin T High Sens Troponin T Hi Sens 2 Hr Cancelled POC Glucose Radiography Diagnostic Testing: Clinical Impression(s) from Imaging Studies Brain CT 08/11/24 11:22 IMPRESSION: 1. No visible acute intracranial findings. If there is persistent concern for an acute intracranial process, recommend MRI. 2. Mild maxillary paranasal sinus disease. 3. Additional description as above. Red Alert: #1 above The critical information above was relayed directly by me by telephone to Girish Conteh on 08/11/2024 at 9:48 am with readback verification. Reading Location: [facility] Head/Neck CTA 08/11/24 11:22 IMPRESSION: 1. No high-grade stenosis or large vessel occlusion identified. 2. Filling defects in the superior sagittal sinus are mostly rounded and may reflect prominent arachnoid granulations rather than nonobstructing dural venous sinus thrombus. Consider correlation with laboratory evaluation such as D-dimer and recommend attention on below recommended follow-up. 3. 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 Recommend neurosurgical/neuro IR consultation. Additional dilatation of the basilar tip to 7 x 4 mm, possible infundibulum. Clinical follow-up recommended. 4. Slight asymmetric soft tissue prominence and hyperenhancement of the RIGHT lingual tonsil with a mildly asymmetrically prominent but technically nonenlarged RIGHT parapharyngeal node. Although these findings could be reactive, recommend direct visualization as early neoplasm cannot be excluded by imaging. 5. Additional description as above. Reading Location: [id number] Critical Care Time Critical Care Time: Yes Critical care time (excluding procedures): 30-74 minutes, Discussing w/Patient &/or Family/Orthodontist Vice President, Discussing w/Consultants, Arranging Admission or Transfer, Performing Direct Patient Care at Bedside and - (30 minutes) Discharge Plan Dx/Rx/DC Orders Clinical Impression: Brain TIA, Expressive aphasia, Cerebral aneurysm without rupture Disposition Disposition: [facility] Discharge Date/Time: 08/11/24 14:18 NIHSS NIHSS 1a. Level of Consciousness: 0 - Alert; keenly responsive 1b. LOC Questions: 0 - Answers BOTH questions correctly 1c. LOC Commands: 0 - Performs BOTH tasks correctly 2. Best Gaze: 0 - Normal 3. Visual: 0 - No visual loss 4. Facial Palsy: 0 - Normal symmetrical movements 5a. Left Arm: 0 - No drift; arm holds 90 (or 45) degrees for full 10 seconds 5b. Right Arm: 0 - No drift; arm holds 90 (or 45) degrees for full 10 seconds 6a. Left Le - No drift; leg holds 30-degree position for full 5 seconds 6b. Right Le - No drift; leg holds 30-degree position for full 5 seconds 8. Sensory: 0 - Normal; no sensory loss 9. Best Language: 0 - No aphasia; normal 10. Dysarthria: 0 - Normal 11. Extinction and Inattention: 0 - No abnormality Total: 0 Stroke Questions Stroke Team Activated: Yes Reviewed Inclusion/Exclusion criteria: Yes Was Patient considered for Endovascular Intervention?: No IV Thrombolytic Administered: No (Symptoms resolve, not recommended by neurology.)
[2024-08-11 11:45] LABS: Absolute Lymphocyte Count 2.12 X10^3/uL (0.83-4.51); Absolute Neutrophil Count 4.8 X10^3/uL (2.0-7.7); Basophil# 0.04 X10^3/uL; Basophil% 0.5 % (0-1); Eosinophil# 0.21 X10^3/uL; Eosinophils% 2.8 % (0-5); Hematocrit 42.4 % (37-47); Hemoglobin 14.2 g/dL (12.0-15.0); Lymphocyte # 2.12 X10^3/ul (0.83-4.51); Mean Corp Hgb Conc 33.5 g/dL (32-36); Mean Corpuscular Hgb 32.6 pg (27.0-32.0); Mean Corpuscular Volume 97.2 fL (81-99); Mean Platelet Vol. 10.2 fl (6.2-12.0); Monocyte# 0.38 X10^3/uL; NRBC Flagged by Analyzer 0 % (0-5); Neutrophil # 4.79 X10^3/uL (2.7-7.7); Neutrophil % 63.3 % (47-70); Platelet Count 352 K/mm3 (150-450); RBC Distribution Width CV 14.8 % (11.6-14.6); RBC Distribution Width SD 51.5 fl (35.1-43.9); Red Blood Count 4.36 M/mm3 (4.2-5.4); White Blood Count 7.6 K/mm3 (4.4-11.0)
[2024-08-11 12:16] LABS: Bedside Glucose 82 mg/dL (74-106)
[2024-08-11 12:17] LABS: Anion Gap 12 (5-15); BUN 13 mg/dL (4-19); BUN/Creat Ratio 16.9 RATIO (10-20); Calcium,Total 9.8 mg/dL (7.6-11.0); Carbon Dioxide 23.7 mmol/L (21.0-32.0); Chloride 101 mmol/L (98-108); Creatinine, Serum 0.77 mg/dL (0.70-1.20); EST Glomerular Filtration Rate 80 (>60); Estimated Creatinine Clearance 58.29 ml/min (50-250); Glucose 96 mg/dL (70-99); Potassium 4.5 mmol/L (3.3-5.1); Sodium Level 137 mmol/L (133-145); Troponin T High Sensitivity 9 ng/L (<=14)
[2024-08-11 12:34] LABS: Prothrombin Time (Protime)PT. 13.1 SECONDS (11.7-14.9)
[2024-08-11 12:35] LABS: Partial Thromboplast Time 27.6 Seconds (24.1-36.2)
[2024-08-11] MEDS: Aspirin 325 MG Tablet PO (12:57)
--- NOTE | 2024-08-11 13:21 | CHAPLAIN ---
Type of Pastoral Visit ___ Initial Visit ___ Follow-up Visit ___ On-call Visit ___ General Patient Visit ___ Spiritual Assessment ___ Family Conference ___ Bereavement ___ Rapid Response ___ Code Blue ___ Other (describe below) Pastoral Care Referral From ___ Patient ___ Family ___ Nurse ___ Physician ___ Cane Flume Feeding Machine Operator ___ Systems Operator ___ Other (describe below) Sacrament/Intervention ___ Active listening ___ Anointing ___ Yarsani ___ Bereavement ___ Communion ___ Katja exploration ___ ___ Life review ___ Prayer ___ Reconciliation ___ Sacrament of Sick ___ Supportive presence ___ Wedding ___ Other (describe below) Pastoral Comments responded to stroke alert in the ED; pt was being taken to Cat Scan at this time; met with the step daughter to offer support; SW also responded and was actively assisting family member; DIL gave some details of the morning and the current health situation of the patient but declined any further need of support
--- NOTE | 2024-08-11 13:41 | MRI_ITS ---
PROCEDURE: BRAIN WITHOUT CONTRAST (MRIBR), 08/11/2024 REASON FOR EXAM: TIA COMPARISON: CT and CTA of same date TECHNIQUE: Multisequence multiplanar MRI brain was performed without intravenous contrast. Contrast: None. FINDINGS: Cerebrum: No acute infarct, mass, or appreciable acute intracranial hemorrhage identified. Mild patchy supratentorial white matter abnormalities, nonspecific but compatible with chronic microvascular ischemic changes. 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 Cerebellum: Unremarkable. Brainstem: Unremarkable. Ventricles/extra-axial spaces: Age appropriate appearance. Major flow voids: Better evaluated on recent CTA. Paranasal sinuses: Trace to mild anterior ethmoid and mild inferior maxillary mucosal thickening. Scalp/calvarium: Unremarkable. Orbits: Bilateral cataract surgery. Other: Redemonstrated small nonspecific RIGHT retropharyngeal lymph node. MRI/Brain without Contrast IMPRESSION: 1. No specific evidence of an acute intracranial process. 2. Additional description as above. Reading Location: [id number]
--- NOTE | 2024-08-11 13:54 | PCM.HP.STD ---
HPI - General General Date of Admission: 08/11/24 HPI Narrative DAMARIS ZAYAS, is a 79 F who presents to the hospital with slurred speech. She had taken her pills around 9 to 10:00 in the morning including a narcotic that she has been on for years without any issues and her daughter came to the house between 10 and 1030 and she was slurring her speech. Her symptoms resolved in the ER her NIH was 0. She was seen by neurology who recommended CTA of the head and neck as well as inpatient stroke workup. She is on aspirin at baseline and Lipitor as well the Lipitor is dosed at 20 mg placed. 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 This was relayed to [facility] who recommended outpatient neurosurgical evaluation. She also has an asymmetric soft tissue prominence of the right lingula tonsil with mildly asymmetrical prominent parapharyngeal node. Of note she does have an ENT evaluation on Saturday so would recommend direct visualization of this region. [facility] Medical History (Updated 08/11/24 @ 14:08 by Amita Barragan) Osteoporosis High blood cholesterol Hypertension Wears glasses Easy bruising Restless legs Back pain History of ulceration Gastric reflux Non-smoker Shortness of breath on exertion History of pain when walking History of edema History of stress test Psoriatic arthritis Non-cardiac chest pain Restless legs syndrome (RLS) GERD (gastroesophageal reflux disease) Osteoarthritis Chest pain Home Medications ?Medication ?Instructions ?Recorded ?Last Taken ?Type methotrexate sodium 2.5 mg tablet 20 mg PO TH 05/09/16 08/06/24 History omeprazole 40 mg capsule,delayed 40 mg PO BID 05/09/16 08/11/24 History release vitamin B complex 1 ea PO DAILY 05/09/16 05/08/16 History atorvastatin 20 mg tablet 20 mg PO DAILY 12/12/22 Unknown History cyclosporine 0.1 %-chondroitin 1 drp ophthalmic (eye) DAILY 08/14/23 08/11/24 History sulfate A sodium 0.25 % eye drops (Cyclosporine in [place]) losartan 50 mg tablet 50 mg PO DAILY 08/09/24 08/11/24 History aspirin 81 mg tablet,delayed 81 mg PO DAILY 08/11/24 08/11/24 History release (Adult Aspirin Regimen) biotin 5,000 mcg sublingual tablet 5,000 mcg sublingual DAILY 08/11/24 08/11/24 History cholecalciferol (vitamin D3) 125 125 mcg PO DAILY 08/11/24 08/11/24 History mcg (5,000 unit) tablet (Vitamin D3) denosumab 60 mg/mL subcutaneous 60 mg subcut .COMPLEX 08/11/24 04/17/24 History syringe (Prolia) fluorometholone 0.1 % eye 1 drp ophthalmic (eye) BID 08/11/24 08/11/24 History drops,suspension folic acid 1 mg tablet 1 mg PO DAILY 08/11/24 08/11/24 History hydrocodone-acetaminophen 5-325mg 1 tab PO Q6H PRN Pain 08/11/24 08/10/24 History 5mg-325mg ketoconazole 2 % topical cream 1 applic topical DAILY 08/11/24 Unknown History magnesium 200 mg tablet 200 mg PO DAILY 08/11/24 08/11/24 History triamcinolone acetonide 0.1 % 1 applic topical BID 08/11/24 Unknown History topical cream Allergy/AdvReac Type Severity Reaction Status Date / Time etanercept (From Enbrel) Allergy Severe Swelling Verified 08/11/24 11:16 metronidazole Allergy Severe Hives Verified 08/11/24 11:16 celecoxib (From Celebrex) AdvReac Mild gastric Verified 08/11/24 11:16 ulcer Family History Father Heart disease Sister Breast cancer Diabetes Surgical History Hx of colonoscopy Hx of foot surgery Hx of breast biopsy S/P cataract extraction History of cholecystectomy Status post total knee replacement, right Status post total knee replacement, left H/O: hysterectomy Social History housing: house Smoking Status: Never smoker second hand exposure: No alcohol intake: never substance use type: does not use caffeine: Yes what type of physical activity do you participate in: none frequency: does not exercise seatbelt use: always ROS Constitutional Constitutional: Denies chills, fatigue, fever(s) or malaise Eyes Eyes: Denies blurry vision ENT HEENT: Denies headache(s) or nasal discharge Cardiovascular Cardiovascular: Denies chest pain, dyspnea on exertion or syncope Respiratory/Chest Respiratory/Chest: Denies cough, shortness of breath at rest or shortness of breath with exertion Gastrointestinal Gastrointestinal: Denies constipation, diarrhea, nausea or vomiting Genitourinary Genitourinary: Denies dysuria Neurologic Neurologic: Reports abnormal speech; Denies focal weakness, numbness or tremor(s) Psychiatric Psychiatric: Denies anxiety or depression Vital Signs Vital Signs Vital Signs: 08/11/24 11:16 08/11/24 11:52 08/11/24 11:53 Temperature 98.6 F Temperature Source Oral Pulse Rate 62 61 Respiratory Rate 18 19 H Blood Pressure 188/90 H 168/76 H Blood Pressure Mean 122 106 Pulse Ox 98 97 98 Oxygen Delivery Method Room Air Room Air Room Air 08/11/24 12:22 08/11/24 12:30 08/11/24 13:00 Temperature Temperature Source Pulse Rate 60 61 60 Respiratory Rate 18 15 17 Blood Pressure 151/79 H 157/67 H 167/89 H Blood Pressure Mean 103 97 115 Pulse Ox 98 98 98 Oxygen Delivery Method Room Air Room Air Room Air 08/11/24 13:30 Temperature Temperature Source Pulse Rate 60 Respiratory Rate 18 Blood Pressure 174/76 H Blood Pressure Mean 108 Pulse Ox 98 Oxygen Delivery Method Room Air Weight Weight: 164 lb 10.965 oz Body Mass Index (BMI) 28.3 Physical Exam Narrative General: Alert, Oriented x3, Cooperative, No apparent distress HEENT: Atraumatic, PERRLA, EOMI, Normocephalic Oral: Moist Mucosa Neck: Supple, No JVD Lungs: Diminished, Normal air movement, No rhonchi, No wheeze, No rales Cardiovascular: Regular rate, Regular Rhythm, Normal S1, Normal S2, No murmurs Abdomen: Soft, Non Tender, Non-Distended, No Hepato-splenomegaly Extremities: No edema, Capillary Refill Less than 3 Seconds Skin: No rashes, No breakdown Musculoskeletal: No Tenderness to Palpation of Joints or Extremities Neurological: No focal neurological deficits, moves all extremities, sensation intact. NIH of 0 Psych/Mental Status: Normal Affect, Appropriate Results Lab / Micro Data 08/11/24 11:36 08/11/24 11:36 Labs: Laboratory Results - last 24 hr 08/11/24 11:36: WBC 7.6, RBC 4.36, Hgb 14.2, Hct 42.4, MCV 97.2, MCH 32.6 H, MCHC 33.5, RDW Std Deviation 51.5 H, RDW Coeff of Behzad 14.8 H, Plt Count 352, MPV 10.2, Immature Gran % (Auto) 0.400, Neut % (Auto) 63.3, Lymph % (Auto) 28.0, [place] % (Auto) 5.0, Eos % (Auto) 2.8, Baso % (Auto) 0.5, Absolute Neuts (auto) 4.8, Absolute Lymphs (auto) 2.12, Nucleated RBC % 0, PT Cancelled, INR Cancelled, APTT Cancelled, Sodium 137, Potassium 4.5, Chloride 101, Carbon Dioxide 23.7, Anion Gap 12, BUN 13, Creatinine 0.77, Estim Creat Clear Calc 58.29, Est GFR (MDRD) Non-Af 80, BUN/Creatinine Ratio 16.9, Glucose 96, Calcium 9.8, Troponin T High Sens 9 08/11/24 11:59: POC Glucose 82 08/11/24 12:21: PT 13.1, INR 1.0, APTT 27.6 Imaging Radiology Impression Brain CT 08/11/24 11:22 IMPRESSION: 1. No visible acute intracranial findings. If there is persistent concern for an acute intracranial process, recommend MRI. 2. Mild maxillary paranasal sinus disease. 3. Additional description as above. Red Alert: #1 above The critical information above was relayed directly by me by telephone to Girish Conteh on 08/11/2024 at 9:48 am with readback verification. Reading Location: [id number] Head/Neck CTA 08/11/24 11:22 IMPRESSION: 1. No high-grade stenosis or large vessel occlusion identified. 2. Filling defects in the superior sagittal sinus are mostly rounded and may reflect prominent arachnoid granulations rather than nonobstructing dural venous sinus thrombus. Consider correlation with laboratory evaluation such as D-dimer and recommend attention on below recommended follow-up. 3. 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 Recommend neurosurgical/neuro IR consultation. Additional dilatation of the basilar tip to 7 x 4 mm, possible infundibulum. Clinical follow-up recommended. 4. Slight asymmetric soft tissue prominence and hyperenhancement of the RIGHT lingual tonsil with a mildly asymmetrically prominent but technically nonenlarged RIGHT parapharyngeal node. Although these findings could be reactive, recommend direct visualization as early neoplasm cannot be excluded by imaging. 5. Additional description as above. Reading Location: [facility] Assessment & Plan Assessment/Plan (1) Cerebral aneurysm without rupture: (2) Brain TIA: (3) Expressive aphasia: PLAN: Plan 1. TIA/LEI aneurysm/essential HTN/HLD ? Will need to follow-up with neurosurgery as an outpatient ? Continue with the MRI in the morning ? If positive can obtain an echo ? Will increase her Lipitor to 40 mg daily and will continue with her aspirin ? CTA of the head and neck also demonstrated a lingular tonsil asymmetry with a somewhat asymmetrical parapharyngeal lymph node, this should be relayed to her ENT Dr. Mcconnell as she will see him on Saturday for possible direct visualization ? Will continue with her home blood pressure medications and monitor make adjustments as necessary 2. Recent rib fractures ? Continue with her home narcotics ? She is not requiring any oxygen 3. GERD ? Stable ? Continue with PPI DVT: SCDs Charges/Coding Visit Charges Inpatient E&M: 87822 Init Hosp L2
[2024-08-11 14:43] LABS: Troponin T High Sens 2 HR 9 ng/L (<=14)
--- NOTE | 2024-08-11 18:44 | CM.ED ---
Social Work Reason for visit: Stroke Alert SW met with patients step daughter, step daughter stated she had brought food over to patients house due to patient recently falling and breaking ribs. Step daughter noted that patients speech and cognition did not seem right so she brought her to the ED. SW stayed with step daughter while patient was getting testing completed. Emotional support provided. No further needs at this time. Cira Daniels, OFFICE SUPPORT ASSISTANT, ETIOLOGY TEACHER
[2024-08-11 19:15] LABS: Troponin T High Sens 4 HR 7 ng/L (<=14)
[2024-08-11] MEDS: Pantoprazole Sodium 40 MG Tablet PO (20:34)
[2024-08-11] MEDS: Atorvastatin Calcium 40 MG Tablet PO (20:36)
[2024-08-12 00:45] VITALS: BP 118/66; PULSE 76; RESP 16; TEMP 36.1; O2SAT 94
[2024-08-12] MEDS: HYDROcodone Bitartrate/Apap 5/325 Tablet PO ×2 (01:22→13:42)
--- NOTE | 2024-08-12 02:02 | PN.HOSP_ITS ---
Hospitalist Note MRI without acute findings.
--- NOTE | 2024-08-12 02:02 | PCM.HOSP.N ---
Hospitalist Note MRI without acute findings.
[2024-08-12 04:45] VITALS: BP 120/67; PULSE 66; RESP 16; TEMP 35.9; O2SAT 94
[2024-08-12 07:07] LABS: Cholesterol 132 mg/dL (<=200); High Density Lipoprotein 42 mg/dL; Low Density Lipoprotein Calc. 68 mg/dL; Triglycerides 113 mg/dL; Very Low Density Lipoprotein 23 mg/dL (5-40); cholesterol:hdl ratio screen 3.18
[2024-08-12 07:46] VITALS: O2SAT 96
[2024-08-12 09:40] VITALS: BP 119/80; PULSE 77; RESP 16; TEMP 36.4; O2SAT 96
[2024-08-12] MEDS: Losartan Potassium 50 MG Tablet PO (09:45)
[2024-08-12] MEDS: Pantoprazole Sodium 40 MG Tablet PO (09:45)
[2024-08-12] MEDS: Folic Acid 1 MG Tablet PO (09:45)
[2024-08-12] MEDS: Aspirin E.C. 81 MG Tablet PO (09:50)
[2024-08-12] MEDS: Glycerin/Hypromellose/PEG400 15 ml Bottle 1 DRP EACH EYE (09:50)
[2024-08-12] MEDS: Cholecalciferol (Vit D3) 125 MCG CAPSULE (5,000 UNITS) PO (09:50)
--- NOTE | 2024-08-12 11:28 | DS.PCM_ITS ---
Providers Date of Admission: 08/11/24 Date of Discharge: 08/12/24 Primary Care Physician: RAJAN Reyes Reason For Visit: TIA Diagnosis Discharge Diagnosis (1) Cerebral aneurysm without rupture: Status: Acute Code(s): I67.1 - Cerebral aneurysm, nonruptured (2) Brain TIA: Status: Acute Code(s): G45.9 - Transient cerebral ischemic attack, unspecified (3) Expressive aphasia: Status: Acute Code(s): R47.01 - Aphasia Medications at Discharge Home Medications methotrexate sodium 2.5 mg tablet 20 mg PO TH imflammation 05/09/16 omeprazole 40 mg capsule,delayed release 40 mg PO BID reflux 05/09/16 vitamin B complex 1 ea PO DAILY vitamin 05/09/16 atorvastatin 20 mg tablet 20 mg PO DAILY cholesterol 12/12/22 cyclosporine 0.1 %-chondroitin sulfate A sodium 0.25 % eye drops (Cyclosporine in Klarity) 1 drp ophthalmic (eye) DAILY eye health 08/14/23 losartan 50 mg tablet 50 mg PO DAILY blood pressure 08/09/24 aspirin 81 mg tablet,delayed release (Adult Aspirin Regimen) 81 mg PO DAILY heart health 08/11/24 biotin 5,000 mcg sublingual tablet 5,000 mcg sublingual DAILY supplement 08/11/24 cholecalciferol (vitamin D3) 125 mcg (5,000 unit) tablet (Vitamin D3) 125 mcg PO DAILY vitamin 08/11/24 denosumab 60 mg/mL subcutaneous syringe (Prolia) 60 mg subcut .COMPLEX bone health 08/11/24 fluorometholone 0.1 % eye drops,suspension 1 drp ophthalmic (eye) BID eye health 08/11/24 folic acid 1 mg tablet 1 mg PO DAILY supplement 08/11/24 hydrocodone-acetaminophen 5-325mg 5mg-325mg 1 tab PO Q6H PRN Pain 08/11/24 ketoconazole 2 % topical cream 1 applic topical DAILY rash 08/11/24 magnesium 200 mg tablet 200 mg PO DAILY supplement 08/11/24 triamcinolone acetonide 0.1 % topical cream 1 applic topical BID rash 08/11/24 Hospital Course Operations None Procedures EKG and - (CT brain, CTA head/neck, MRI brain) Summary of Care Provided Minutes Spent on Discharge: 35 Hospital Course: Patient is a 79-year-old female who presented to [facility] ED on 08/11/2024 with slurred speech. Short hospital course as noted below. Patient discharged home in stable condition on 08/12. 1. Expressive aphasia, CVA ruled out; hypertension; hyperlipidemia ? Neurology followed. Presented with slurred speech and difficulty with word finding. CT brain unremarkable. CTA head/neck showed LEI aneurysm as noted below, was otherwise unremarkable. MRI brain unremarkable. Patient improved during hospitalization. Infectious workup negative. Suspected that home narcotic medications were primary contributor to her symptoms. Stable for discharge home on 08/12. Continue home aspirin, statin and losartan on discharge. 2. Anterior communicating artery aneurysm ? CTA head/neck showed a saccular LEI aneurysm measuring 6 x 4 x 4 mm with mild dilatation of the basilar tip to 7 x 4 mm. Was discussed with neurosurgery on admission who noted this was not contributing to her symptoms as above so no inpatient needs but recommended close outpatient follow-up. Information for [facility] neurosurgery office was provided for the patient on discharge and it was recommended that they call to schedule an appointment in the next 1 to 2 weeks. 3. Lingular tonsil asymmetry ? CTA head/neck also demonstrated a lingular tonsil asymmetry with a somewhat asymmetrical parapharyngeal lymph node of unclear significance. Patient has ENT follow-up with Dr. Mcconnell on Saturday and recommendation was made that he be made aware of this for possible direct visualization. 4. GERD ? Continue home PPI. 5. Recent rib fractures ? Patient okay to continue home hydrocodone?acetaminophen 1 tab up to every 6 hours as needed at this time. Total clinical time spent by myself addressing the patient's medical issues, reviewing all the data, and collaborating with patient's care team: 35 minutes. Physical Exam Const alert, no apparent distress and average body habitus Constitutional Narrative: Elderly female, alert and oriented, mild tangential speech noted but no difficulty with slurred speech, otherwise sitting back comfortably in bed and in no acute distress. General Appearance: cooperative and comfortable HEENT normocephalic, head/scalp atraumatic, hearing grossly normal bilaterally, nasal mucous membranes and turbinates normal and moist oral mucous membranes Eyes PERRL, EOMs intact bilaterally and conjunctivae normal Neck full ROM Chest inspection of chest normal Resp normal respiratory effort, normal air movement, no use of accessory muscles and clear to auscultation bilaterally Cardio regular rate, regular rhythm, no murmurs and peripheral pulses 2+ throughout GI normal to inspection, nondistended, normoactive bowel sounds, soft to palpation, non-tender and non-distended Back/Spine normal ROM Extremity normal to inspection, full ROM and no pedal edema Skin no rashes or lesions noted Neuro moves all extremities and no focal motor deficits Motor Exam: strength 5/5 throughout Psych mental status grossly normal Weight / BMI Weight Weight: 72.5 kg Body Mass Index (BMI) 27.4 ABG / Lab / Microbiology Data 08/11/24 11:36 08/11/24 11:36 Laboratory: Laboratory Results - last 24 hr 08/11/24 14:14: Troponin T Hi Sens 2 Hr 9 08/11/24 18:15: Troponin T Hi Sens 4Hr 7 08/12/24 06:08: Triglycerides 113, Cholesterol 132, LDL Cholesterol, Calc 68, VLDL Cholesterol 23, HDL Cholesterol 42, Cholesterol/HDL Ratio 3.18 Radiography Diagnostic Testing: Radiology Impression Brain MRI 08/11/24 13:41 IMPRESSION: 1. No specific evidence of an acute intracranial process. 2. Additional description as above. Reading Location: [id number] D/C Instructions DC O2, CPAP, BIPAP Needs Home O2 Discharge instructions: No Meaningful Use Info Meaningful Use Meaningful Use Diagnoses (Choose all that apply): None applicable Ischemic Stroke Statin Dosing Therapy Reference: STATIN DOSE THERAPY REFERENCE: * Patients > 75 years receive moderate or high dose statin therapy. * Patients 75 years or YOUNGER should receive HIGH intensity statin dose unless contraindicated. You will be required to document reason for non-treatment if statin daily dose does not meet guidelines. HIGH DOSE STATIN THERAPY DAILY Atorvastatin > than or = to 40 mg Rosuvastatin > than or = to 20 mg Amlodipine + Atorvastatin > than or = to 2.5/40 mg Ezetimibe + Simvastatin 10/80 mg Simvastatin 80mg Discharge Plan Admission Admit Date/Time: 08/11/24 13:36 Primary Reason for Your Visit: Slurred speech Attending Provider: Nicolas Lafleur Primary Care Provider: Yoko Tipton Consulting Providers: Harry Mayo Instructions Additional Instructions / Restrictions: Continue your home medications as normal. Please call the [facility] neurosurgery office to schedule a follow-up appointment soon for the intracranial aneurysm found on your CT scan here. Follow-up with your ENT doctor on Saturday as previously scheduled. Discharge Orders/Prescriptions Prescriptions: Continued omeprazole 40 MG capsule 40 mg PO BID Patient Comments: GERD methotrexate sodium 2.5 MG tablet 20 mg PO Patient Comments: 20 MG TOTAL ON THURSDAYS BUT SEPERATES 10 MG IN AM 10MG IN PM, PSORIASIS CAUSED BY ARTHRITIS vitamin B complex 1 EACH capsule 1 ea PO DAILY Patient Comments: PT TAKES AT NIGHT atorvastatin 20 mg tablet 20 mg PO DAILY Patient Comments: PT TAKES AT BEDTIME Cyclosporine in Klarity 0.1-0.25 % drops 1 drp ophthalmic (eye) DAILY losartan 50 mg tablet 50 mg PO DAILY fluorometholone 0.1 % drops,suspension 1 drp ophthalmic (eye) BID folic acid 1 mg tablet 1 mg PO DAILY aspirin [Adult Aspirin Regimen] 81 mg tablet,delayed release (DR/EC) 81 mg PO DAILY magnesium 200 mg tablet 200 mg PO DAILY triamcinolone acetonide 0.1 % cream 1 applic topical BID ketoconazole 2 % cream 1 applic topical DAILY biotin 5,000 mcg tablet, sublingual 5,000 mcg sublingual DAILY Prolia 60 mg/mL syringe 60 mg subcut .COMPLEX Rx Instructions: 60 mg subcutaneously EVERY 3 MONTHS; cholecalciferol (vitamin D3) [Vitamin D3] 125 mcg (5,000 unit) tablet 125 mcg PO DAILY hydrocodone-acetaminophen 1 TABLET tablet 1 tab PO Q6H PRN (Reason: Pain) Referrals / Follow Up: [facility] [Outside] Yoko Tipton OPERATIONS RESEARCH GROUP MANAGER [Primary Care Provider] - Disposition Disposition (needs filled in before D/C Order can be placed): Home, Self Care Charges/Coding Visit Charges Inpatient E&M: 79934 Disch Hosp >30min
--- NOTE | 2024-08-12 11:28 | PCM.DC ---
Discharge Instructions Diet Discharge Diet: No restrictions DC O2, CPAP, BIPAP needs Home O2 Discharge instructions: No Dressing / Incision Discharge Activity: No Restrictions Follow Up Care Test Results: Test results from this visit will be discussed in further detail at your follow-up appointment, if applicable. Discharge Plan Admission Admit Date/Time: 08/11/24 13:36 Primary Reason for Your Visit: Slurred speech Attending Provider: Nicolas Lafleur Primary Care Provider: Yoko Tipton Consulting Providers: Haryr Mayo Instructions Additional Instructions / Restrictions: Continue your home medications as normal. Please call the [facility] neurosurgery office to schedule a follow-up appointment soon for the intracranial aneurysm found on your CT scan here. Follow-up with your ENT doctor on Saturday as previously scheduled. Discharge Orders/Prescriptions Prescriptions: Continued omeprazole 40 MG capsule 40 mg PO BID Patient Comments: GERD methotrexate sodium 2.5 MG tablet 20 mg PO Patient Comments: 20 MG TOTAL ON THURSDAYS BUT SEPERATES 10 MG IN AM 10MG IN PM, PSORIASIS CAUSED BY ARTHRITIS vitamin B complex 1 EACH capsule 1 ea PO DAILY Patient Comments: PT TAKES AT NIGHT atorvastatin 20 mg tablet 20 mg PO DAILY Patient Comments: PT TAKES AT BEDTIME Cyclosporine in Klarity 0.1-0.25 % drops 1 drp ophthalmic (eye) DAILY losartan 50 mg tablet 50 mg PO DAILY fluorometholone 0.1 % drops,suspension 1 drp ophthalmic (eye) BID folic acid 1 mg tablet 1 mg PO DAILY aspirin [Adult Aspirin Regimen] 81 mg tablet,delayed release (DR/EC) 81 mg PO DAILY magnesium 200 mg tablet 200 mg PO DAILY triamcinolone acetonide 0.1 % cream 1 applic topical BID ketoconazole 2 % cream 1 applic topical DAILY biotin 5,000 mcg tablet, sublingual 5,000 mcg sublingual DAILY Prolia 60 mg/mL syringe 60 mg subcut .COMPLEX Rx Instructions: 60 mg subcutaneously EVERY 3 MONTHS; cholecalciferol (vitamin D3) [Vitamin D3] 125 mcg (5,000 unit) tablet 125 mcg PO DAILY hydrocodone-acetaminophen 1 TABLET tablet 1 tab PO Q6H PRN (Reason: Pain) Referrals / Follow Up: [facility] Neurosurgery [Outside] Yoko Tipton, AIR DEFENCE OFFICER [Primary Care Provider] - Disposition Disposition (needs filled in before D/C Order can be placed): Home, Self Care
--- NOTE | 2024-08-12 11:30 | CASEMGMT ---
Social Work Per physician, negative for stroke. PHQ9 not completed. YANN Ludwig
--- NOTE | 2024-08-12 13:36 | CASEMGMT ---
Patient has order for discharge. RN CM in to discuss needs at discharge. Patient denies needs or help at discharge. Patient is ambulating independently in room. Patient had no further questions or concerns.
--- NOTE | 2024-08-12 13:42 | PHA.DC.MR.R ---
Pharmacy [place] Med Reconciliation Pharmacy Service has performed discharge medication reconciliation for this patient. The patient's discharge medication list was reviewed for discrepancies and discrepancies were resolved. Medications at Discharge Home Medications methotrexate sodium 2.5 mg tablet 20 mg PO TH imflammation 05/09/16 omeprazole 40 mg capsule,delayed release 40 mg PO BID reflux 05/09/16 vitamin B complex 1 ea PO DAILY vitamin 05/09/16 atorvastatin 20 mg tablet 20 mg PO DAILY cholesterol 12/12/22 cyclosporine 0.1 %-chondroitin sulfate A sodium 0.25 % eye drops (Cyclosporine in Klarity) 1 drp ophthalmic (eye) DAILY eye health 08/14/23 losartan 50 mg tablet 50 mg PO DAILY blood pressure 08/09/24 aspirin 81 mg tablet,delayed release (Adult Aspirin Regimen) 81 mg PO DAILY heart health 08/11/24 biotin 5,000 mcg sublingual tablet 5,000 mcg sublingual DAILY supplement 08/11/24 cholecalciferol (vitamin D3) 125 mcg (5,000 unit) tablet (Vitamin D3) 125 mcg PO DAILY vitamin 08/11/24 denosumab 60 mg/mL subcutaneous syringe (Prolia) 60 mg subcut .COMPLEX bone health 08/11/24 fluorometholone 0.1 % eye drops,suspension 1 drp ophthalmic (eye) BID eye health 08/11/24 folic acid 1 mg tablet 1 mg PO DAILY supplement 08/11/24 hydrocodone-acetaminophen 5-325mg 5mg-325mg 1 tab PO Q6H PRN Pain 08/11/24 ketoconazole 2 % topical cream 1 applic topical DAILY rash 08/11/24 magnesium 200 mg tablet 200 mg PO DAILY supplement 08/11/24 triamcinolone acetonide 0.1 % topical cream 1 applic topical BID rash 08/11/24
--- NOTE | 2024-08-12 14:37 | CHAPLAIN ---
Type of Pastoral Visit ___ Initial Visit _x__ Follow-up Visit ___ On-call Visit ___ General Patient Visit ___ Spiritual Assessment ___ Family Conference ___ Bereavement ___ Rapid Response ___ Code Blue ___ Other (describe below) Pastoral Care Referral From _x__ Patient ___ Family ___ Nurse ___ Physician ___ Industrial Sewer ___ Photographic Process Screen Maker ___ Other (describe below) Sacrament/Intervention _x__ Active listening ___ Anointing ___ Catholic ___ Bereavement ___ Communion ___ Katja exploration ___ ___ Life review _x__ Prayer ___ Reconciliation ___ Sacrament of Sick ___ Supportive presence ___ Wedding ___ Other (describe below) Pastoral Comments this was a follow up referral to the patient that came in for a stroke alert yesterday; pt is trying to rest 'until the neurologist comes on the screen to evaluate more'; spouse is with her in the room; pt declares that she is fine but admits that she has a bad headache; pt welcomes a prayer and a brief time to converse on his life; spouse is offered support too
[2024-08-12 14:41] VITALS: BP 111/74; PULSE 73; RESP 16; TEMP 37.2; O2SAT 94
== END 2024-08-12 12:12 | disposition home or self-care (01) ==
LOC: ED 12:21 → PCU 14:05
PROVIDERS: Admitting Provider Family Medicine; Emergency Provider Emergency Medicine; PCP Clinical Nurse Specialist Adult Health; Visit Provider Hospitalist
DX: R47.01 Aphasia (principal); Z90.710 Acquired absence of both cervix and uterus; Z79.82 Long term (current) use of aspirin; I67.1 Cerebral aneurysm, nonruptured; I10 Essential (primary) hypertension; J35.1 Hypertrophy of tonsils; M19.90 Unspecified osteoarthritis, unspecified site; K21.9 Gastro-esophageal reflux disease without esophagitis; R47.81 Slurred speech; S22.41XD Multiple fractures of ribs, right side, subsequent encounter for fracture with routine healing; E78.5 Hyperlipidemia, unspecified; Z79.899 Other long term (current) drug therapy; Z90.49 Acquired absence of other specified parts of digestive tract; Z96.653 Presence of artificial knee joint, bilateral; R94.31 Abnormal electrocardiogram [ECG] [EKG]; R00.1 Bradycardia, unspecified; R42 Dizziness and giddiness; G45.9 Transient cerebral ischemic attack, unspecified; E78.00 Pure hypercholesterolemia, unspecified
CPT/HCPCS: 36415; 70450; 70496; 70498; 70551; 80048; 80061; 82962; 84484; 85025; 85610; 85730; 93005; 94762; 97162; 97166; 97802; 99221; 99285; Q9967; A4216; G0378

== ENCOUNTER 2024-09-05 06:37 | Emergency (ER) | payer MEDICARE, SELFPAY ==
[2024-09-05 06:38] VITALS: BP 148/71; PULSE 69; RESP 18; TEMP 37.1; O2SAT 97; BMI 28.3
--- NOTE | 2024-09-05 07:00 | RAD_ITS ---
PROCEDURE: WRIST MIN 3 VIEWS 09/05/2024 REASON FOR EXAM: LEFT WRIST PAIN TECHNIQUE: 3 view(s) of the left wrist COMPARISON: None available FINDINGS: The study is limited by nonstandard positioning. There is asymmetric soft tissue swelling, deformity along the lateral wrist. No acute appearing fracture or dislocation identified. A well corticated appearing ulnar styloid remote appearing fracture deformity. Chondrocalcinosis. Osteoarthrosis 1st carpometacarpal joint. RAD/Wrist min 3 Views IMPRESSION: The study is limited by nonstandard positioning. There is asymmetric soft tissue swelling, deformity along the lateral wrist, cl inically correlate. No acute appearing fracture or dislocation identified. A well corticated appearing ulnar styloid remote appearing fracture deformity. Chondrocalcinosis. Osteoarthrosis 1st carpometacarpal joint. Reading Location: [id number]
--- NOTE | 2024-09-05 07:02 | EDS_ITS ---
HPI History of Present Illness Chief Complaint: Upper Extremity Injury Narrative Narrative: Chief complaint and HPI: Left wrist pain. 79-year-old female presents for evaluation of left wrist pain. Patient states yesterday she bent over on her hands and knees to look under the bed for her cat. She states since then she has developed left wrist pain. She denies any fall or trauma to the wrist otherwise. She denies any numbness or tingling. She denies any fever or chills. Review of systems: See HPI Medications: As listed on the chart Allergies: As listed on the chart PFSH: Per chart Vital signs: As listed on the chart. Reviewed. Physical exam: Gen: A&O x3, NAD Head: Normocephalic, atraumatic Eyes: No sclera icterus, conjunctiva clear ENT: Moist mucous membranes CV: Regular rate Resp: Nonlabored respiration Musc: Full ROM of the left upper extremity except for the left wrist secondary to pain, pain is worse with movement, she has mild ecchymosis to the radial aspect of the wrist without swelling, no snuffbox tenderness, no warmth/erythema/rash, radial pulse +2, good capillary refill. Hand and fingers without tenderness. Chronic arthritic changes to the wrist. Skin: Warm, dry Neuro: Alert, oriented, grossly intact, sensation intact Psych: Cooperative, appropriate mood and affect [facility] Medical History Osteoporosis Cerebral aneurysm without rupture High blood cholesterol Hypertension Wears glasses Easy bruising Restless legs Back pain History of ulceration Gastric reflux Non-smoker Shortness of breath on exertion History of pain when walking History of edema History of stress test Psoriatic arthritis Non-cardiac chest pain Restless legs syndrome (RLS) GERD (gastroesophageal reflux disease) Osteoarthritis Chest pain Home Medications ?Medication ?Instructions ?Recorded ?Last Taken ?Type methotrexate sodium 2.5 mg tablet 20 mg PO TH imflamma tion 05/09/16 08/06/24 History omeprazole 40 mg capsule,delayed 40 mg PO BID reflux 0 05/09/16 08/11/24 History release vitamin B complex 1 ea PO DAILY vitamin 05/08/16 History atorvastatin 20 mg tablet 20 mg PO DAILY cholesterol 0 12/12/22 Unknown History cyclosporine 0.1 %-chondroitin 1 drp ophthalmic (eye) DAILY eye 08/14/23 08/11/24 History sulfate A sodium 0.25 % eye drops health (Cyclosporine in Klarity) losartan 50 mg tablet 50 mg PO DAILY blood pressur e 08/09/24 08/11/24 History aspirin 81 mg tablet,delayed 81 mg PO DAILY heart heal th 08/11/24 08/11/24 Histo ry release (Adult Aspirin Regimen) cholecalciferol (vitamin D3) 125 125 mcg PO DAILY chris min 08/11/24 08/11/24 History mcg (5,000 unit) tablet (Vitamin D3) denosumab 60 mg/mL subcutaneous 60 mg subcut .COMPLEX bone health 08/11/24 04/17/24 History syringe (Prolia) fluorometholone 0.1 % eye 1 drp ophthalmic (eye) BID e ye 08/11/24 08/11/24 History drops,suspension health folic acid 1 mg tablet 1 mg PO DAILY supplement 08/11/24 History hydrocodone-acetaminophen 5-325mg 1 tab PO Q6H PRN Henry n 08/11/24 08/10/24 History 5mg-325mg ketoconazole 2 % topical cream 1 applic topical DAILY rash 08/11/24 Unknown History magnesium 200 mg tablet 400 mg PO DAILY supplement 0 08/11/24 08/11/24 History triamcinolone acetonide 0.1 % 1 applic topical BID analisa h 08/11/24 Unknown History topical cream Allergy/AdvReac Type Severity Reaction Status Date / Time etanercept (From Enbrel) Allergy Severe Swelling Verified 09/05/24 06:38 metronidazole Allergy Severe Hives Verified 09/05/24 06:38 celecoxib (From Celebrex) AdvReac Mild gastric Verified 09/05/24 06:38 ulcer Family History Father Heart disease Sister Breast cancer Diabetes Surgical History Hx of colonoscopy Hx of foot surgery Hx of breast biopsy S/P cataract extraction History of cholecystectomy Status post total knee replacement, right Status post total knee replacement, left H/O: hysterectomy Social History housing: house Smoking Status: Never smoker second hand exposure: No alcohol intake: never substance use type: does not use caffeine: Yes what type of physical activity do you participate in: none frequency: does not exercise seatbelt use: always EXAM Physical Exam Const Vital Signs: 09/05/24 06:38 Temperature 98.7 F Temperature Source Oral Pulse Rate 69 Respiratory Rate 18 Blood Pressure 148/71 H Blood Pressure Mean 96 Pulse Ox 97 Oxygen Delivery Method Room Air MDM MDM MDM Narrative Medical decision making narrative: 79-year-old female presents for evaluation of left wrist pain. Left wrist pain started after bending over. Denies any trauma or injury. Differential diagnosis includes but is not limited to left wrist sprain, fracture. Not consistent with septic arthritis or gout. Patient has not taken anything for the pain. [place] ordered with x-ray of the left wrist. At this point in time x- ray of the left wrist is pending however I did personally review this, I do not see any acute fracture or dislocation. A lot of arthritic changes however will await final read. If patient is negative for fracture, plan will be to discharge home with follow-up with PCP with wrist splint. Patient signed out to oncoming physician who will await for read. Impression: 1. Left wrist pain 2. Arthritis Discharge Plan Triage Chief Complaint: Upper Extremity Injury ED Provider: Héctor Pérez Dx/Rx/DC Orders Prescriptions: No Action omeprazole 40 MG capsule 40 mg PO BID Patient Comments: GERD methotrexate sodium 2.5 MG tablet 20 mg PO Patient Comments: 20 MG TOTAL ON THURSDAYS BUT SEPERATES 10 MG IN AM 10MG IN PM, PSORIASIS CAUSED BY ARTHRITIS vitamin B complex 1 EACH capsule 1 ea PO DAILY Patient Comments: PT TAKES AT NIGHT atorvastatin 20 mg tablet 20 mg PO DAILY Patient Comments: PT TAKES AT BEDTIME Cyclosporine in Klarity 0.1-0.25 % drops 1 drp ophthalmic (eye) DAILY losartan 50 mg tablet 50 mg PO DAILY fluorometholone 0.1 % drops,suspension 1 drp ophthalmic (eye) BID folic acid 1 mg tablet 1 mg PO DAILY aspirin [Adult Aspirin Regimen] 81 mg tablet,delayed release (DR/EC) 81 mg PO DAILY magnesium 200 mg tablet 400 mg PO DAILY triamcinolone acetonide 0.1 % cream 1 applic topical BID ketoconazole 2 % cream 1 applic topical DAILY Prolia 60 mg/mL syringe 60 mg subcut .COMPLEX Rx Instructions: 60 mg subcutaneously EVERY 3 MONTHS; cholecalciferol (vitamin D3) [Vitamin D3] 125 mcg (5,000 unit) tablet 125 mcg PO DAILY hydrocodone-acetaminophen 1 TABLET tablet 1 tab PO Q6H PRN (Reason: Pain) Primary Care Provider: Yoko Tipton Referrals: Yoko Tipton, PYTHON DJANGO DEVELOPER [Primary Care Provider] - Print Language: Serbian
[2024-09-05] MEDS: Ondansetron ODT 4 MG Tablet PO (07:03)
[2024-09-05] MEDS: HYDROcodone Bitartrate/Apap 5/325 Tablet PO (07:03)
--- NOTE | 2024-09-05 07:34 | EDS_ITS ---
HPI History of Present Illness Chief Complaint: Upper Extremity Injury [facility] Medical History (Updated 09/05/24 @ 07:[address] Isaias Salvador, DO) Osteoporosis Cerebral aneurysm without rupture High blood cholesterol Hypertension Wears glasses Easy bruising Restless legs Back pain History of ulceration Gastric reflux Non-smoker Shortness of breath on exertion History of pain when walking History of edema History of stress test Psoriatic arthritis Non-cardiac chest pain Restless legs syndrome (RLS) GERD (gastroesophageal reflux disease) Osteoarthritis Chest pain Home Medications ?Medication ?Instructions ?Recorded ?Last Taken ?Type methotrexate sodium 2.5 mg tablet 20 mg PO TH imflamma tion 05/09/16 08/06/24 History omeprazole 40 mg capsule,delayed 40 mg PO BID reflux 0 05/09/16 08/11/24 History release vitamin B complex 1 ea PO DAILY vitamin 05/08/16 History atorvastatin 20 mg tablet 20 mg PO DAILY cholesterol 0 12/12/22 Unknown History cyclosporine 0.1 %-chondroitin 1 drp ophthalmic (eye) DAILY eye 08/14/23 08/11/24 History sulfate A sodium 0.25 % eye drops health (Cyclosporine in [place]) losartan 50 mg tablet 50 mg PO DAILY blood pressur e 08/09/24 08/11/24 History aspirin 81 mg tablet,delayed 81 mg PO DAILY heart heal th 08/11/24 08/11/24 History release (Adult Aspirin Regimen) cholecalciferol (vitamin D3) 125 125 mcg PO DAILY chris min 08/11/24 08/11/24 History mcg (5,000 unit) tablet (Vitamin D3) denosumab 60 mg/mL subcutaneous 60 mg subcut .COMPLEX bone health 08/11/24 04/17/24 History syringe (Prolia) fluorometholone 0.1 % eye 1 drp ophthalmic (eye) BID e ye 08/11/24 08/11/24 History drops,suspension health folic acid 1 mg tablet 1 mg PO DAILY supplement 08/11/24 History hydrocodone-acetaminophen 5-325mg 1 tab PO Q6H PRN Henry n 08/11/24 08/10/24 History 5mg-325mg ketoconazole 2 % topical cream 1 applic topical DAILY rash 08/11/24 Unknown History magnesium 200 mg tablet 400 mg PO DAILY supplement 0 08/11/24 08/11/24 History triamcinolone acetonide 0.1 % 1 applic topical BID analisa h 08/11/24 Unknown History topical cream Allergy/AdvReac Type Severity Reaction Status Date / Time etanercept (From Enbrel) Allergy Severe Swelling Verified 09/05/24 06:38 metronidazole Allergy Severe Hives Verified 09/05/24 06:38 celecoxib (From Celebrex) AdvReac Mild gastric Verified 09/05/24 06:38 ulcer Family History Father Heart disease Sister Breast cancer Diabetes Surgical History Hx of colonoscopy Hx of foot surgery Hx of breast biopsy S/P cataract extraction History of cholecystectomy Status post total knee replacement, right Status post total knee replacement, left H/O: hysterectomy Social History housing: house Smoking Status: Never smoker second hand exposure: No alcohol intake: never substance use type: does not use caffeine: Yes what type of physical activity do you participate in: none frequency: does not exercise seatbelt use: always EXAM Physical Exam Const Vital Signs: 09/05/24 06:38 Temperature 98.7 F Temperature Source Oral Pulse Rate 69 Respiratory Rate 18 Blood Pressure 148/71 H Blood Pressure Mean 96 Pulse Ox 97 Oxygen Delivery Method Room Air [facility] MDM Radiography Diagnostic Testing: Clinical Impression(s) from Imaging Studies Wrist X-Ray 09/05/24 07:00 IMPRESSION: The study is limited by nonstandard positioning. There is asymmetric soft tissue swelling, deformity along the lateral wrist, clinically correlate. No acute appearing fracture or dislocation identified. A well corticated appearing ulnar styloid remote appearing fracture deformity. Chondrocalcinosis. Osteoarthrosis 1st carpometacarpal joint. Reading Location: [id number] Treatment and Re-Evaluation Narrative: Care of the patient was turned over to me pending x-ray report. X-rays of the left wrist were obtained. There are 3 views. On my independent interpretation, there are degenerative changes. There is no acute fracture. There is soft tissue swelling. Radiologist also interpreted the x-ray and agrees. Patient was advised of her findings. Patient was given a cock up wrist splint. Patient was instructed to take Tylenol or ibuprofen as needed for pain. Patient was instructed to follow-up with her primary care physician in 5 to 7 days. Patient understood and was agreeable with the plan. All questions were answered. Discharge Plan Triage Chief Complaint: Upper Extremity Injury ED Provider: Héctor Pérez Dx/Rx/DC Orders Clinical Impression: Left wrist pain, Osteoarthritis Instructions: ED Arthralgia, ED RICE Prescriptions: No Action omeprazole 40 MG capsule 40 mg PO BID Patient Comments: GERD methotrexate sodium 2.5 MG tablet 20 mg PO Patient Comments: 20 MG TOTAL ON THURSDAYS BUT SEPERATES 10 MG IN AM 10MG IN PM, PSORIASIS CAUSED BY ARTHRITIS vitamin B complex 1 EACH capsule 1 ea PO DAILY Patient Comments: PT TAKES AT NIGHT atorvastatin 20 mg tablet 20 mg PO DAILY Patient Comments: PT TAKES AT BEDTIME Cyclosporine in [place] 0.1-0.25 % drops 1 drp ophthalmic (eye) DAILY losartan 50 mg tablet 50 mg PO DAILY fluorometholone 0.1 % drops,suspension 1 drp ophthalmic (eye) BID folic acid 1 mg tablet 1 mg PO DAILY aspirin [Adult Aspirin Regimen] 81 mg tablet,delayed release (DR/EC) 81 mg PO DAILY magnesium 200 mg tablet 400 mg PO DAILY triamcinolone acetonide 0.1 % cream 1 applic topical BID ketoconazole 2 % cream 1 applic topical DAILY Prolia 60 mg/mL syringe 60 mg subcut .COMPLEX Rx Instructions: 60 mg subcutaneously EVERY 3 MONTHS; cholecalciferol (vitamin D3) [Vitamin D3] 125 mcg (5,000 unit) tablet 125 mcg PO DAILY hydrocodone-acetaminophen 1 TABLET tablet 1 tab PO Q6H PRN (Reason: Pain) Primary Care Provider: Yoko Tipton Referrals: Yoko Tipton, HOSPITALIST PHYSICIAN [Primary Care Provider] - 3-5 Days Activity Restrictions/Additional Instructions: Follow-up with primary care physician. Tylenol and ibuprofen as needed for pain. Print Language: Sinhala Disposition Disposition: Home, Self Care
[2024-09-05 07:38] VITALS: BP 140/77; PULSE 71; RESP 17; TEMP 36.7; O2SAT 93
== END 2024-09-05 07:55 | disposition home or self-care (01) ==
PROVIDERS: Emergency Provider Surgery; PCP Clinical Nurse Specialist Adult Health; Visit Provider Surgery
DX: M19.032 Primary osteoarthritis, left wrist (principal); I10 Essential (primary) hypertension; E78.00 Pure hypercholesterolemia, unspecified; Z79.82 Long term (current) use of aspirin; Z79.899 Other long term (current) drug therapy
CPT/HCPCS: 73110; 99283; A4216

== ENCOUNTER 2024-10-18 12:24 | Emergency (ER) | payer MEDICARE, SELFPAY ==
[2024-10-18 12:28] VITALS: BP 112/55; PULSE 60; RESP 18; TEMP 37.1; O2SAT 96; BMI 28.0
[2024-10-18 12:39] VITALS: BP 115/48; PULSE 63; RESP 20; O2SAT 100
[2024-10-18 12:49] LABS: Hematocrit 38.0 % (37-47); Hemoglobin 12.3 g/dL (12.0-15.0); Immature Granulocytes Count 0.060 X10^3/uL (0.0-0.0); Mean Corp Hgb Conc 32.4 g/dL (32-36); Mean Corpuscular Volume 98.4 fL (81-99); Mean Platelet Vol. 9.5 fl (6.2-12.0); NRBC Flagged by Analyzer 0 % (0-5); Platelet Count 278 K/mm3 (150-450); RBC Distribution Width CV 15.9 % (11.6-14.6); RBC Distribution Width SD 56.5 fl (35.1-43.9); Red Blood Count 3.86 M/mm3 (4.2-5.4); White Blood Count 11.8 K/mm3 (4.4-11.0)
[2024-10-18] MEDS: 0.9% Normal Saline (1000mL) 1,000 ML 999 ML IV (12:49)
[2024-10-18 13:20] LABS: Anion Gap 12 (5-15); BUN 13 mg/dL (4-19); BUN/Creat Ratio 15.1 RATIO (10-20); Calcium,Total 8.5 mg/dL (7.6-11.0); Carbon Dioxide 21.8 mmol/L (21.0-32.0); Chloride 104 mmol/L (98-108); Estimated Creatinine Clearance 52.79 ml/min (50-250); Glucose 112 mg/dL (70-99); Potassium 4.4 mmol/L (3.3-5.1)
[2024-10-18 13:21] LABS: Troponin T High Sensitivity 9 ng/L (<=14)
[2024-10-18 13:31] LABS: Prothrombin Time (Protime)PT. 13.8 SECONDS (11.7-14.9)
[2024-10-18 13:32] LABS: Partial Thromboplast Time 26.0 Seconds (24.1-36.2)
[2024-10-18 14:02] VITALS: BP 121/59; BP 121/85; BP 134/58; PULSE 83; PULSE 87; PULSE 88
[2024-10-18 14:04] LABS: Mucous, Urine 0 SEEN /hpf (<or=2+); Red Blood Cells-Urine 0 SEEN /hpf (0-5)
[2024-10-18 14:05] LABS: Color, Urine Yellow (Yellow); Glucose, Dipstick Normal (Normal); Ketone-Dipstick Negative (Negative); Leukocyte Esterase-Dipstick 100 /ul (Negative); Nitrite-Dipstick Negative (Negative); Occult Blood-Urine 10 /ul (Negative); Protein-Dipstick Negative (Negative); Specific Gravity, Urine 1.010 (1.002-1.030); Urine Bilirubin Dipstick Negative (Negative)
[2024-10-18 14:11] LABS: Squamous Epithelial Cells - UA 0-5 SEEN /hpf (5-10)
[2024-10-18 14:26] VITALS: BP 109/72; PULSE 74; RESP 20; TEMP 37.1; O2SAT 99
[2024-10-18 15:41] LABS: Troponin T High Sens 2 HR 8 ng/L (<=14)
[2024-10-18 16:23] VITALS: BP 110/74; PULSE 74; RESP 16; TEMP 36.8; O2SAT 99
== END 2024-10-18 16:24 | disposition home or self-care (01) ==
PROVIDERS: Physician Assistant; Emergency Provider Surgery; PCP Clinical Nurse Specialist Adult Health; Visit Provider Surgery
DX: R55 Syncope and collapse (principal); Z86.73 Personal history of transient ischemic attack (TIA), and cerebral infarction without residual deficits
CPT/HCPCS: 70496; 70498; 80048; 81001; 84484; 85025; 85610; 85730; 93005; 96360; 99285; Q9967; A4216

== ENCOUNTER 2024-12-11 09:30 | Outpatient (RCR) | payer MEDICARE, SELFPAY ==
--- NOTE | 2024-09-30 15:38 | HP.PTEVAL_ITS ---
Patient's Visit Information Visit Information Visit Information: DAMARIS ZAYAS is a 79 year old F referred to Physical Therapy by TAMARA Nunez with a diagnosis of HANNAH SHLD OA, R RCT, NECK PAIN, CERV DDD AND TENSION. Date of Evaluation: 09/30/24 Physical Therapist: Rachel Rosales PT, Cert MDT Visit Plan Frequency: 2x /Week Duration: 4-6 Weeks Plan: MANUAL THERAPY FOR HANNAH UT STM AND R SHLD JOINT MOBILIZATION ALONG WITH R SHLD PASSIVE AND AAROM TO DECREASE NECK AND R SHLD PAIN AND INCREASE R UE FUNCTION. POSTURE, NECK AND HANNAH SHOULDER ROM AND STRENGTHENING EXERCISE WITH HEP INSTRUCTION. Subjective Subjective: Present symptoms: NECK PAIN, R SHLD AND UPPER ARM PAIN. HEADACHES. PATIENT DENIES B UE NUMBNESS AND TINGLING. PATIENT REPORTS SHE HAS SOME L SHLD PAIN BUT IT DOESN'T KILL ME AND I CAN RAISE IT. PATIENT REPORTS SHE IS HERE BECAUSE SHE CAN'T RAISE HER R ARM. Present since: IT'S BEEN A LONG TIME Getting Better, Getting Worse or Staying the Same: GETTING WORSE Pain Scale: Worst - 8/10 Least - 4/10 Currently: 08/22 Commenced as a result of: NO APPARENT REASON Symptoms at onset: R SHLD PAIN. Worse: TRYING TO REACH INCREASES R SHLD PAIN, LAYING CERTAIN WAYS HURT R SHLD AND NECK. Better: OTC PAIN PATCH AND ROLL ON Disturbed sleep: YES Previous history/Previous treatment: CORTISON INJECTIONS IN SHOULDER. PATIENT DENIES NECK INJECTIONS. PATIENT DENIES NECK AND SHLD SURGERIES. This episode: STATES LAST R SHOULDER INJECTION DIDN'T WORK. PATIENT REPORTS SHE HAD A CONSULT FOR SURGERY AND STATES SHE REFUSES TO HAVE ANY SURGERY. Dizziness: SOMETIMES A LITTLE BIT Tinnitus: NO Nausea: NO Shortness of Breath: NO Difficulty Swallowing: NO Gait: AUGUST 07 FELL WATERING ROSE. AUGUST 09 2024 WENT TO HOSPITAL FOR FX'D RIBS. 08/11/24 - TIA. ALSO DX'D WITH aneurysm in july 2024. ANOTEHR FALL 09/14/24 WHEN FELL INTO HER CAUSING HER TO FALL. Unexplained weight loss: NO Imaging: NO PMH/Recent major surgery: aneurysm DX IN JULY 2024 WITH SX 09/24/24 AND 2 DAYS IN ICU DUE TO TRANSIENT EPISODE OF aphasia 09/05/24 - on all 4's checking for cat under bed and went to hospital to have left wrist/hand x-ray'd - negative for fx but wearing splint given by emergency dept. Going to see arthritis Nurse Practitioner today to follow up about wrist and to follow up about shoulders too. Osteoporosis Cerebral aneurysm without rupture High blood cholesterol Hypertension Wears glasses Easy bruising Restless legs Back pain History of ulceration Gastric reflux Non-smoker Shortness of breath on exertion History of pain when walking History of edema History of stress test Psoriatic arthritis Non-cardiac chest pain Restless legs syndrome (RLS) GERD (gastroesophageal reflux disease) Osteoarthritis Chest pain Hx of colonoscopy Hx of foot surgery Hx of breast biopsy S/P cataract extraction History of cholecystectomy Status post total knee replacement, right Status post total knee replacement, left H/O: hysterectomy Objective Objective: Sitting Posture/Standing Posture: POOR. FH. RSH'S. INCREASED KYPHOSIS. Sensory deficit: HANNAH UE LIGHT TOUCH SENSATION GROSSLY INTACT. ROM deficit: AROMM R SHLD FLEX 95 DEG, ABD 50 DEG. PROM: FLEX 110 DEG, ABD 104 DEG, IR 50 DEG, ER 50 DEG. AROM L SHLD FLEX 135 DEG, ABD 140 DEG. PROM FLEX 140 DEG, ABD 140 DEG, IR 65 DEG, ER 60 DEG. Motor deficit: R SHLD 2-/5, ELBOW 4-/5 WITH GOOD NIGHT TIME BABYSITTER. L SHLD 3-/5, ELBOW 4/5 AND WRIST NT - (WEARING L WRIST BRACE). Dural Signs: NEGATIVE HANNAH UE'S. Cervical Mvmt Loss: Flex: NIL Pro: NIL Ext: MOD Ret: VIGNESH RSB: MOD LSB: MOD R Rot: MOD L Rot: MOD PATIENT C/O ERP WITH CERVICAL ROM TESTING INTO HANNAH ROT AND SB WELL EXT BUT STATES HER MAIN CONCERN IS NOT BEING ABLE TO LIFT HER R ARM. Postural strength: POOR Palpation: NO ACUTE TENDERNESS WITH PALPATION OF HANNAH SHOULDERS, UPPER THORACIC SPINE, CERVICAL SPINE OR OCCIPUT. HANNAH SHOULDER ATROPHY R > LEFT. INCREASED MUSCLE TONE HANNAH UPPER TRAPS. Balance/Special Test Scores Oswestry Neck Score: 21 Quick DASH Score: 56.8175 Goals Goal 1:: DECREASE C/O NECK AND HANNAH SHLD PAIN BY AT LEAST 50% TO EASE ADL'S Goal Time Frame: 4-6 Weeks Goal 2:: IMPROVE NECK AND HANNAH UE FUNCTIONAL ROM TO EASE ADL'S. Goal Time Frame: 4-6 Weeks Goal 3:: IMPROVE FUNCTIONAL UE AND POSTURAL STRENGTH TO EASE ADL'S. Goal Time Frame: 4-6 Weeks Goal 4:: INDEP HEP Goal Time Frame: 4-6 Weeks Rehabilitation Potential Physical Therapy Diagnosis: NECK AND POSTURAL STIFFNESS AND WEAKNESS WITH HANNAH UE WEAKNESS AND STIFFNESS RIGHT > LEFT Rehabilitation Potential: Fair Anticipated Interventions Patient/Client Instruction: Educate patient on: Condition, Plan of Care and Risk Factors For the Purpose of:: To improve self management Therapeutic Exercise to Include: Strength training, Postural training, Flexibilty training, Neuromotor development, Passive ROM, Active ROM and Scapular Strength/Stabilization For the Purpose of:: To decrease pain, To improve muscle performance and motor function, To improve ability to perform ADL's, To increase tolerance to activity/condition/position, To improve performance and independence with ADL's, To decrease level of supervision to perform tasks, To improve ability of physical actions for home/community/work/leisure, To increase flexibility/ROM and To improve self management Manual Therapy Techniques to Include: Mobilization and Soft tissue mobilization For the Purpose of:: To decrease pain, To improve nutrient delivery to tissue, To decrease soft tissue restriction and To increase flexibility/ROM Ultrasound (thermal/non thermal): Yes For the Purpose of:: To decrease pain and To improve nutrient delivery to tissue Text: Thank you for the opportunity to evaluate your patient. For Medicare and Medicare HMO plans, please review the plan of care and approve it. It will need to be FAXED BACK to us at [phone] for Medicare purposes. For Medicare only, by signing this I certify the plan of care. Please let me know if there are questions or concerns regarding this plan of care. Physician Signature: Date:
--- NOTE | 2024-11-02 12:58 | HP.PTREVAL ---
Re-Evaluation Intro: TAMARA Nunez, It has been my pleasure to treat DAMARIS ZAYAS over the last 10 visits for HANNAH SHLD OA, R RCT, NECK PAIN, CERV DDD AND TENSION. Please see the progress note below for an update on the physical therapy plan of care! Subjective Subjective: PATIENT REPORTS HER WAS GETTING BETTER AND THEN HER PAIN INCREASED SOMETIME BETWEEN LAST SAT'S AND LAST SATURDAY'S VISIT FOR NO APPARENT REASON. SHE REPORTS THE MASSAGE TREATMENT SATURDAY FELT GREAT AND WANTS TO CONTINUE IT IF POSSIBLE. PATIENT REPORTS THE HARDEST THING IS SHE CAN'T OPEN THE CAT FOOD AND SHE CAN'T OPEN ANY JARS. Objective Objective/Function: PATIENT WAS SEEN TODAY FOR RE-ASSESSMENT OF PROGRESS TOWARD THE SET PT GOALS AND THE NEED FOR FURTHER PHYSICAL THERAPY VS READINESS FOR DISCHARGE. ALTHOUGH THIS PATIENT IS STILL REPORTING A LOT OF PAIN WITH R UE REACHING AND EXHIBITING A LOT OF PAIN BEHAVIOR SHE DOES DEMONSTRATE IMPROVED R UE ROM AND STRENGTH TODAY COMPARED TO INITIAL EVAL, GIVES GOOD EFFORT IN PT AND DESIRES TO CONTINUE PT. UPON EXAM TODAY: ROM deficit: AROM R SHLD FLEX 126 DEG, ABD 95 DEG. PROM: FLEX 137 DEG, ABD 110 DEG, IR 71 DEG, ER 64 DEG. PATIENT C/O PAIN WITH R SHLD ROM TESTING ALL PLANES ACTIVELY AND PASSIVELY. Motor deficit: R SHLD 2+/5, ELBOW 4-/5 WITH GOOD CARD ROOM MANAGER. Dural Signs: REMAIN NEGATIVE HANNAH UE'S. Cervical Mvmt Loss: Flex: NIL Pro: NIL Ext: MOD Ret: VIGNESH RSB: MOD LSB: MOD R Rot: MOD L Rot: MOD PATIENT C/O ERP WITH CERVICAL ROM TESTING INTO HANNAH ROT AND SB WELL EXT BUT STATES HER MAIN CONCERN CONTINUES TO BE HER R SHLD. Plan Plan Plan: PT 2X'S A WK X 5 WKS: US AT 1.3 TO 1.5 W/CM2 X 8 MIN TO SHLD REGION. MANUAL THERAPY FOR HANNAH UT STM AND R SHLD JOINT MOBILIZATION ALONG WITH R SHLD PASSIVE AND AAROM TO DECREASE NECK AND R SHLD PAIN AND INCREASE R UE FUNCTION. POSTURE, NECK AND HANNAH SHOULDER ROM AND STRENGTHENING EXERCISE WITH HEP INSTRUCTION. Balance/Gait/Functional tests Balance/Special Test Scores Oswestry Neck Score: 11 Quick DASH Score: 37.5000 Goals Goals Goal 1:: DECREASE C/O NECK AND HANNAH SHLD PAIN BY AT LEAST 50% TO EASE ADL'S Goal Time Frame: 4-6 Weeks Goal Progress: Progressing Goal 2:: IMPROVE NECK AND HANNAH UE FUNCTIONAL ROM TO EASE ADL'S. Goal Time Frame: 4-6 Weeks Goal Progress: Progressing Goal 3:: IMPROVE FUNCTIONAL UE AND POSTURAL STRENGTH TO EASE ADL'S. Goal Time Frame: 4-6 Weeks Goal Progress: Progressing Goal 4:: INDEP HEP Goal Time Frame: 4-6 Weeks Goal Progress: Progressing Anticipated Interventions Anticipated Interventions Patient/Client Instruction: Educate patient on: Condition, Plan of Care and Risk Factors For the Purpose of:: To improve self management Therapeutic Exercise to Include: Strength training, Postural training, Flexibilty training, Neuromotor development, Passive ROM, Active ROM and Scapular Strength/Stabilization For the Purpose of:: To decrease pain, To improve muscle performance and motor function, To improve ability to perform ADL's, To increase tolerance to activity/condition/position, To improve performance and independence with ADL's, To decrease level of supervision to perform tasks, To improve ability of physical actions for home/community/work/leisure, To increase flexibility/ROM and To improve self management Manual Therapy Techniques to Include: Mobilization and Soft tissue mobilization For the Purpose of:: To decrease pain, To improve nutrient delivery to tissue, To decrease soft tissue restriction and To increase flexibility/ROM Ultrasound (thermal/non thermal): Yes For the Purpose of:: To decrease pain and To improve nutrient delivery to tissue Re-Evaluation Ending Re-evaluation ending: Please do not hesitate to contact me at [phone] by phone or if you have questions or concerns regarding this new plan of care! Sincerely, Rachel Rosales, PT, Cert MDT
--- NOTE | 2024-12-11 12:32 | HP.PTDCSUM ---
Discharge Summary D/C summary: It has been my pleasure to treat DAMARIS ZAYAS referred by TAMARA Nunez, with the diagnosis of HANNAH SHLD OA, R RCT, NECK PAIN, CERV DDD AND TENSION for a total of 20 visit(s). Discharge Date: 12/11/24 Please see the following information for a summary of their discharge status. Subjective Subjective: I THINK I'VE MADE REALLY GOOD PROGRESS, IT'S JUST I'M NOT DONE YET. PATIENT REPORTS SHE IS HAPPY WITH THE PROGRESS SHE IS MAKING WITH PT BUT IT IS BECOMING A BURDEN TO HAVE HER BRING HER TO [place]. SHE PLANS TO CONTINUE PT IN [place] NOW. SHE IS HAPPY TO REPORT SHE CAN NOW GET HER HAND BEHIND HER BACK BETTER, PULL HER PANTS UP BETTER AND TURN HER HEAD BETTER SINCE STARTING PT. SHE ALSO REPORTS LESS R SHLD PAIN. Pain R shoulder: Pain Intensity (Out of 10): 2 Overall Improvement % Improvement: 60 Objective Objective/Function: PATIENT WAS SEEN TODAY FOR RE-ASSESSMENT OF PROGRESS TOWARD THE SET PT GOALS AND THE NEED FOR FURTHER PHYSICAL THERAPY VS READINESS FOR DISCHARGE. SHE WAS ALSO SEEN FOR HEP INST. SHE CONTINUES TO HAVE LIMITED R SHLD ROM AND STRENGHT AND C/O PAIN WITH REACHING BUT DEMONSTRATES AND REPORTS IMPROVEMENT NOT ONLY WITH HER SHLD BUT WITH HER NECK PAIN AND ROM TOO. SHE GIVES GOOD EFFORT IN PT AND DESIRES TO CONTINUE PT IN [place] AT THIS TIME DUE TO TRAVEL CONCERNS TO [place]. UPON EXAM TODAY: ROM deficit: AROM (STANDING): R SHLD FLEX 147 DEG, ABD 120 DEG. PROM (SUPINE): FLEX 164 DEG, ABD 151 DEG, IR 71 DEG, ER 84 DEG (ROTATION MEASURED WITH 80 DEG ABD) PATIENT C/O PAIN WITH R SHLD ROM TESTING ALL PLANES ACTIVELY AND PASSIVELY. Motor deficit: R SHLD 3-/5, ELBOW 4/5 WITH GOOD SILVER STEWARD. Dural Signs: REMAIN NEGATIVE HANNAH UE'S. Cervical Mvmt Loss: Flex: NIL Pro: NIL Ext: MOD Ret: VIGNESH RSB: MOD LSB: MOD R Rot: MIN TO MOD L Rot: MIN TO MOD PATIENT C/O ERP WITH CERVICAL ROM TESTING INTO HANNAH ROT AND SB WELL EXT BUT STATES HER MAIN CONCERN CONTINUES TO BE HER R SHLD. PATIENT DEMO'D GOOD TECHNIQUE AND TOLERANCE TO OTB MR'S AND LAE'S, YTB IR AND ER TODAY WITH ER THROUGH SMALL ROM. WRITTEN HEP INSTRUCTIONS PROVIDED. Goals Goal 1:: DECREASE C/O NECK AND HANNAH SHLD PAIN BY AT LEAST 50% TO EASE ADL'S Goal Progress: Goal Met Goal 2:: IMPROVE NECK AND HANNAH UE FUNCTIONAL ROM TO EASE ADL'S. Goal Progress: Goal Met Goal 3:: IMPROVE FUNCTIONAL UE AND POSTURAL STRENGTH TO EASE ADL'S. Goal Progress: Goal Met Goal 4:: INDEP HEP Goal Progress: Goal Met Plan Plan: D/C AT PATIENTS REQUEST DUE TO DIFFICULTY TRAVELING TO [place]. D/C Information d/c sentence: If there are questions or concerns regarding this patient's physical therapy, please feel free to call me at [phone]. Thank you for the referral of this patient. Sincerely, Rachel Rosales, PT, Cert MDT Balance/Gait/Functional tests Balance/Special Test Scores Oswestry Neck Score: 11 Quick DASH Score: 27.5000 Improvement % Improvement: 60
== END 2024-12-11 14:36 | disposition home or self-care (01) ==
LOC: PT 09:30
PROVIDERS: PCP Clinical Nurse Specialist Adult Health
DX: M16.0 Bilateral primary osteoarthritis of hip (principal); M75.101 Unspecified rotator cuff tear or rupture of right shoulder, not specified as traumatic; M25.511 Pain in right shoulder; M25.512 Pain in left shoulder
CPT/HCPCS: 97035; 97110; 97140; 97162; 97530

== ENCOUNTER → 2025-04-14 | Outpatient (CLI) | payer MEDICARE, SELFPAY ==
--- NOTE | 2025-04-14 10:05 | BI_ITS ---
EXAM: SCRN MAMM (CAD)W/SOFIA BILAT DATE: 04/14/2025 CLINICAL HISTORY: F, Age 80 y/o , SCREENING TECHNIQUE: Procedure Code: [id number] Modality: MG Procedure: SCRN MAMM (CAD)W/SOFIA BILAT COMPARISON: Prior exam(s) dated 03/31/2024, 03/27/2023, and 01/18/2022. FINDINGS: TISSUE DENSITY: The breasts are almost entirely fatty. Bilateral Breast Mammographic Findings: There are no suspicious masses, suspicious clustered microcalcifications, architectural distortion, or secondary signs of malignancy identified in either breast. Benign-appearing round microcalcifications are seen in both breast. BI/SCRN MAMM (CAD)W/SOFIA BILAT IMPRESSION: Benign screening mammogram. OVERALL FINAL ASSESSMENT BI-RADS 2: BENIGN RECOMMENDATION: Routine annual follow-up in 1 Year Additional Recommendation none A letter with findings and recommendations will be mailed to the patient. Reading Location: [id number]
== END | disposition home or self-care (01) ==
LOC: OPBI 10:04
PROVIDERS: PCP Clinical Nurse Specialist Adult Health; Referring Provider Clinical Nurse Specialist Adult Health; Visit Provider Clinical Nurse Specialist Adult Health
DX: Z12.31 Encounter for screening mammogram for malignant neoplasm of breast (principal)
CPT/HCPCS: 77063; 77067